=== PATIENT | female | born 1960 | race Caucasian/White ===

== ENCOUNTER → 2017-08-28 | Outpatient (CLI) | payer MEDICARE ==
[~2017-08-28] MED LIST: BUSPAR5 MG PO; FIORICET W/CODE1 CAP PO; K + POTASSIUM20 MEQ PO; LASIX10 MG/M1 PO; LISINOPRIL2.5 MG PO; NEURONTIN100 MG PO; NEURONTIN300 MG PO; NORFLEX100 MG PO; VICO10300 PO; XANAX0.25 MG PO; ZOLOFT20 MG/ML PO
[2017-08-28 10:05] LABS: BASO % 0.4 % (0.0-1.0); EOS # 0.5 10*3/uL (0.0-0.4); EOS % 7.1 % (1.0-4.0); HEMATOCRIT 40.4 % (37.0-47.0); HEMOGLOBIN 13.1 g/dl (12.0-16.0); LYMPH # 3.8 10*3/uL (1.3-4.4); LYMPH % 55.5 % (27.0-41.0); MEAN CELL VOLUME 97.8 fl (81.0-99.0); MEAN CORPUSCULAR HGB 31.7 pg (27.0-31.0); MEAN CORPUSCULAR HGB CONC 32.4 g/dl (33.0-37.0); MEAN PLATELET VOLUME 10.6 fl (9.6-12.3); MONO # 0.5 10*3/uL (0.1-1.0); MONO % 6.8 % (3.0-9.0); NEUT # 2.1 10*3/uL (2.3-7.9); NEUT % 30.1 % (47.0-73.0); PLATELET COUNT AUTOMATED 167 10*3/uL (130-400); RED BLOOD COUNT 4.13 10*6/uL (4.10-5.10); RED CELL DISTRI WIDTH 13.1 % (0-14.5); WHITE BLOOD COUNT 6.9 10*3/uL (4.8-10.8)
[2017-08-28 10:41] LABS: ALBUMIN 3.5 gm/dl (3.1-4.5); ALKALINE PHOSPHATASE 84 U/L (45-117); BUN 13 mg/dl (7-24); CHLORIDE 106 mmol/L (98-107); CHOLESTEROL 153 mg/dL (<200); CREATININE 0.96 mg/dL (0.55-1.02); HDL CHOLESTEROL 47 mg/dl (40-60); LDL CHOLESTEROL 74 mg/dL (9-159); SGOT/AST 14 IU/L (3-35); SGPT/ALT 16 U/L (12-78); SODIUM 141 mmol/L (136-145); TOTAL PROTEIN 7.3 gm/dL (6.4-8.2); TRIGLYCERIDES 159 mg/dl (<150); VLDL CHOLESTEROL 32 mg/dL (6-40)
[2017-08-28 11:24] LABS: VITAMIN D, 25-HYDROXY 16.2 ng/mL (30-100)
== END | disposition home or self-care (01) ==
LOC: LAB 09:46
PROVIDERS: Physician Assistant
DX: Z51.81 Encounter for therapeutic drug level monitoring (principal); E55.9 Vitamin D deficiency, unspecified; Z79.899 Other long term (current) drug therapy

== ENCOUNTER 2017-10-20 22:34 | Emergency (ER) | payer MEDICARE ==
[~2017-10-20] VITALS: Ht 170.1 cm; Wt 170.1 kg
[2017-10-20 22:40] VITALS: BP 133/85
[2017-10-21] MEDS ORDERED: NORCO 5-325 TA1 EACH PO (01:36)
[2017-10-21] MEDS ORDERED: DELTASONE20 M1 PO (01:36)
== END 2017-10-21 02:03 | disposition home or self-care (01) ==
LOC: ED 22:34
DX: M54.16 Radiculopathy, lumbar region (principal); Z98.890 Other specified postprocedural states; Z79.899 Other long term (current) drug therapy

== ENCOUNTER 2018-03-07 12:22 | Emergency (ER) | payer OTHER ==
[~2018-03-07] VITALS: Wt 158.8 kg
[~2018-03-07 12:22] MED LIST changes: +DELTASONE20 M1 PO; +NORCO 5-325 TA1 EACH PO
[2018-03-07 15:45] VITALS: BP 130/56
== END 2018-03-07 16:02 | disposition home or self-care (01) ==
LOC: ED 12:22
DX: S01.01XA Laceration without foreign body of scalp, initial encounter (principal); M54.5 Low back pain; R10.2 Pelvic and perineal pain; Z79.899 Other long term (current) drug therapy; W18.39XA Other fall on same level, initial encounter; Y93.89 Activity, other specified; Y92.009 Unspecified place in unspecified non-institutional (private) residence as the place of occurrence of the external cause; Y99.8 Other external cause status

== ENCOUNTER 2018-03-15 09:39 | Emergency (ER) | payer OTHER ==
[~2018-03-15] VITALS: Ht 170.1 cm; Wt 158.8 kg
[2018-03-15 09:45] VITALS: BP 117/73
== END 2018-03-15 10:16 | disposition home or self-care (01) ==
LOC: ED 09:39
DX: S01.01XD Laceration without foreign body of scalp, subsequent encounter (principal); W19.XXXD Unspecified fall, subsequent encounter

== ENCOUNTER → 2018-09-30 | Outpatient (CLI) | payer OTHER ==
[~2018-09-30] MED LIST changes: +AMARYL4 MG PO; +BENTYL PO; +BUSPAR15 MG PO; +CELEBREX100 MG PO; +DEXILANT60 M1 PO; +DOXEPIN50 MG PO; +IBU800 M2 PO; +LASIX20 MG PO; +LASIX80 MG PO; -LISINOPRIL2.5 MG PO; +NATURE'S BLEND F1 MG PO; -NEURONTIN100 MG PO; +NEURONTIN400 MG PO; +PRINIVIL10 MG PO; +ROBAXIN-750750 MG PO; +Synthroid,Levo25 MCG PO; +TOPAMAX50 MG PO; +VANCO 1.751.75 GM/25 IV; +VICO75300 PO; -XANAX0.25 MG PO; +XANAX2 M1 PO; +ZOCOR40 MG PO; +ZOLOFT100 MG PO; -ZOLOFT20 MG/ML PO
[2018-09-30 12:45] LABS: BASO % 0.3 % (0.0-1.0); EOS # 0.5 10*3/uL (0.0-0.4); EOS % 7.3 % (1.0-4.0); HEMATOCRIT 39.2 % (37.0-47.0); HEMOGLOBIN 12.2 g/dl (12.0-16.0); LYMPH # 2.8 10*3/uL (1.3-4.4); LYMPH % 43.6 % (27.0-41.0); MEAN CELL VOLUME 102.3 fl (81.0-99.0); MEAN CORPUSCULAR HGB 31.9 pg (27.0-31.0); MEAN CORPUSCULAR HGB CONC 31.1 g/dl (33.0-37.0); MEAN PLATELET VOLUME 11.1 fl (9.6-12.3); MONO # 0.5 10*3/uL (0.1-1.0); MONO % 8.5 % (3.0-9.0); NEUT # 2.5 10*3/uL (2.3-7.9); PLATELET COUNT AUTOMATED 171 10*3/uL (130-400); RED BLOOD COUNT 3.83 10*6/uL (4.10-5.10); RED CELL DISTRI WIDTH 13.6 % (0-14.5); WHITE BLOOD COUNT 6.3 10*3/uL (4.8-10.8)
[2018-09-30 12:53] LABS: ALBUMIN 3.3 gm/dl (3.1-4.5); ALKALINE PHOSPHATASE 91 U/L (45-117); BUN 11 mg/dl (7-24); CHLORIDE 107 mmol/L (98-107); CHOLESTEROL 171 mg/dL (<200); CREATININE 0.85 mg/dL (0.55-1.02); HDL CHOLESTEROL 51 mg/dl (40-60); LDL CHOLESTEROL 89 mg/dL (9-159); POTASSIUM 3.9 mmol/L (3.5-5.1); SGOT/AST 12 IU/L (3-35); SGPT/ALT 18 U/L (12-78); SODIUM 143 mmol/L (136-145); TOTAL PROTEIN 7.1 gm/dL (6.4-8.2); TRIGLYCERIDES 156 mg/dl (<150); VLDL CHOLESTEROL 31 mg/dL (6-40)
[2018-09-30 13:03] LABS: VITAMIN D, 25-HYDROXY 32.9 ng/mL (30-100)
[2018-09-30 13:09] LABS: FREE T4 0.96 ng/dl (0.76-1.46)
== END | disposition home or self-care (01) ==
LOC: CT 09-02 13:00 → LAB 10:57 → CT 11:00
PROVIDERS: Internal Medicine
DX: Z13.21 Encounter for screening for nutritional disorder (principal); Z13.220 Encounter for screening for lipoid disorders; Z13.6 Encounter for screening for cardiovascular disorders; D32.0 Benign neoplasm of cerebral meninges; I10 Essential (primary) hypertension; E11.65 Type 2 diabetes mellitus with hyperglycemia; E55.9 Vitamin D deficiency, unspecified; E53.8 Deficiency of other specified B group vitamins; M25.562 Pain in left knee; R51 Headache

== ENCOUNTER 2019-01-21 05:54 | Inpatient (IN) | payer OTHER ==
[~2019-01-21] VITALS: Ht 167.6 cm; Wt 182.4 kg
[2019-01-21] VITALS (14 sets, daily range): BP systolic 89–138; BP diastolic 45–86
--- NOTE | ~2019-01-21 | PR ---
[place], [place] PROGRESS NOTE NAME: TOREY BRIGGS UNIT #: [id number] ROOM: 427 DOCTOR: MARGIE MEDRANOSEPTEMBER BIRTHDATE: [birth year] DOS: 01/22/2019 SUBJECTIVE: The patient is a 58-year-old morbidly obese female who was admitted with sepsis and left thigh abscess and cellulitis. She went for formal I and D yesterday per Dr. Vela. Cultures from that have gram-positive cocci in clusters. She is currently on vancomycin and Ancef. WBCs are improving down to 11. Her temps are improving. She was 103 yesterday. Today, she has not been above 99.3. The patient herself awakens easily, but is a poor historian and keeps falling back to sleep. Nurses state she has had some confusion. No nausea, vomiting or diarrhea. Still having pain in the left thigh, but has improved. Packing was changed per surgery earlier today. Foul odor was noted per nursing. LABORATORY DATA: WBC is 11.2 down from 14, platelets 181. BUN 11, creatinine 0.74. Blood cultures are sterile. OBJECTIVE: VITAL SIGNS: Temperature 99.3, pulse 87, respirations 16, BP 120/72. GENERAL: A 58-year-old morbidly obese female, in no acute distress, nontoxic in appearance. HEENT: Normocephalic, no thrush. NECK: Supple. LUNGS: Clear to auscultation bilaterally. Respirations even and unlabored. HEART: Regular rhythm with murmur noted. ABDOMEN: Soft, obese, nontender. EXTREMITIES: Mild bilateral lower extremity edema. Left thigh with erythema, large dressing anteriorly. SKIN: Otherwise, warm, dry and intact, free of rashes. ASSESSMENT: Left thigh cellulitis and abscess. PLAN: Continue vancomycin and Ancef. Narrow antibiotics once cultures are back. ADDENDUM I agree with the assessment and plan, reviewed the labs and imaging, made the necessary changes in the note. SEPTEMBER MITCHELL HANSON [place], [place] PROGRESS NOTE NAME: TOREY BRIGGS UNIT #: [id number] ROOM: 427 DOCTOR: MARGIE MEDRANO,SEPTEMBER BIRTHDATE: [birth year] Eun Deal MD CM:PNTRANS [id number] SEPTEMBER MARGIE MEDRANO 01/29/19 0115 interface
--- NOTE | ~2019-01-21 | PR ---
[place], [place] PROGRESS NOTE [id number] UNIT #: [id number] ROOM: [facility]- DOCTOR: MARCOS ARGUELLO MD BIRTHDATE: [birth year] DOS: 01/22/2019 SUBJECTIVE: The patient is slightly confused, does not remember the chain of events leading to admission. OBJECTIVE: VITAL SIGNS: Graphic trend shows a pressure of 120/42, pulse of 71, respirations 16, temperature 98.5 with a T-max of 99.9. LUNGS: Diminished breath sounds. Few fine wheezes heard. HEART: Regular. ABDOMEN: Obese. EXTREMITIES: No edema in the lower extremities, large abscess, left thigh, I and D'ed with packing. LABORATORY DATA: Wound culture is growing gram-positive cocci, identification is not available yet. ASSESSMENT AND PLAN: 1. Abscess, left thigh, status post incision and drainage. 2. Sepsis pattern with blood cultures still not completed yet. 3. Type 2 diabetes mellitus, non-insulin dependent. Blood sugars to be checked twice a day. 4. Benign hypertension. Blood pressure is on the low side. Repeat lab this morning shows normal kidney functions. MARCOS ARGUELLO MD CM:PNTRANS [phone] MARCOS ARGUELLO MD 01/22/19 08 interface
--- NOTE | ~2019-01-21 | PR ---
[place], [place] PROGRESS NOTE NAME: [id number] UNIT #: [id number] ROOM: 427 DOCTOR: SELINA GARCIA,MISAEL [place] BIRTHDATE: [birth year] DOS: 01/24/2019 SUBJECTIVE: 1. The patient with left inner thigh abscess, status post drainage and cellulitis with MRSA, being treated with vancomycin, starting to feel better. 2. Morbid obesity. The patient working with Dietary. 3. Adult failure to thrive. The patient waiting for transfer to [place] for continued antibiotic and physical therapy. 4. Type 2 diabetes mellitus. Blood sugars being monitored, treated and reasonably controlled blood sugar was 130. 5. Mild protein calorie malnutrition. The patient is working with Dietary. 6. Generalized anxiety disorder, treated with Zoloft and Xanax. 7. Severe sepsis, resolved. The patient is feeling much better. MISAEL MARKS MD CM:PNTRANS [phone] MISAEL MARKS MD 01/25/19 0035 interface
--- NOTE | ~2019-01-21 | PR ---
[place], [place] PROGRESS NOTE [id number] UNIT #: [id number] ROOM: 427 DOCTOR: MISAEL MARKS MD BIRTHDATE: [birth year] DOS: SUBJECTIVE: The patient is starting to feel better. OBJECTIVE: VITAL SIGNS: Blood pressure 141/49, heart rate 70 beats per minute, breathing 20 times per minute, temperature 99.1 degrees Fahrenheit. GENERAL APPEARANCE: The patient is alert and oriented x 3, in no visible distress. Obesity. HEENT AND NECK: Exam within normal limits. CARDIOVASCULAR SYSTEM: Heart rate is regular in rate and rhythm. S1 and S2 normally audible. LUNGS: Clear to auscultation. ABDOMEN: Soft, nontender. No obvious organomegaly. Bowel sounds are present. EXTREMITIES: Without significant cyanosis or edema. IMPRESSION: 1. The patient with left inner thigh abscess, status post drainage, remains on antibiotic, IV vancomycin, which she needs for 2 more weeks. 2. Morbid obesity. The patient working with Dietary. 3. Adult failure to thrive. The patient working in physical therapy. 4. Type 2 diabetes mellitus. Blood sugars will be monitored and treated. 5. Mild protein calorie malnutrition. The patient working with Dietary. 6. Severe sepsis from MRSA wound infection, clinically improved with vancomycin treatment. MISAEL MARKS MD CM:PNTRANS [phone] MISAEL MARKS MD 01/27/1999 interface
--- NOTE | ~2019-01-21 | PROC NOTE ---
[place], [place] PROCEDURE NOTE [facility]: [id number] UNIT #: [id number] ROOM: [facility] DOCTOR: GREG WOOTEN MD BIRTHDATE: [birth year] DOS: 01/21/2019 PREOPERATIVE DIAGNOSIS: Left thigh abscess. POSTOPERATIVE DIAGNOSIS: Left thigh abscess. PROCEDURE: Incision and drainage of left thigh abscess. SURGEON: Greg Wooten M.D. CLIENT COORDINATOR: FILI. ANESTHESIA: MAC with local (5 mL of 1% plain lidocaine). INDICATIONS: This is a 58-year-old lady admitted with left thigh abscess who is here for the above-mentioned procedure. The procedure and its complications were explained to the patient and her daughter in detail. Complications that were discussed included but were not limited to bleeding, infection and damage to lying vital structures. She agreed to proceed. DESCRIPTION OF PROCEDURE: After identifying the patient, the patient was brought to the operating suite and laid in the supine position. After IV sedation was administered, a timeout procedure was called. The parts were then painted and draped in the usual sterile fashion. An incision was made after local anesthesia was infiltrated in the line of the greatest fluctuation point on the abscess. The abscess cavity was entered and pus was drained. The specimen was sent for culture and sensitivity. Saline was used for irrigation and then a Kerlix pad was soaked with saline as a packing material. Dressing was placed. The patient tolerated the procedure well and was brought back to the recovery room in stable fashion. There were no complications. Dr. Greg Wooten, the attending surgeon, was present throughout the operating case. Greg Wooten MD CM:PROCNOTE:PROCEDURE NOTE [id number] GREG WOOTEN MD
--- NOTE | ~2019-01-21 | PR ---
[place], [place] PROGRESS NOTE NAME: TOREY BRIGGS UNIT #: [id number] ROOM: 427 DOCTOR: MARGIE MEDRANO BIRTHDATE: [birth year] DOS: 01/23/2019 SUBJECTIVE: The patient is a 58-year-old morbidly obese female being followed for left thigh cellulitis and abscess. Cultures have grown MRSA. She continues to have some intermittent fevers, had a temperature during the night of 101.4. She remains on IV vancomycin. Her Ancef was stopped earlier today. She is alert, responsive, looks better up in a chair; however, she answers some questions inappropriately. Denies any nausea, vomiting or diarrhea. No rash or itch. No cough or shortness of breath. Does still have pain in her left thigh. LABORATORY DATA: WBCs 9.2, platelets 183, BUN 12, creatinine 0.58. Abscess cultures grew MRSA. Blood cultures remained sterile. PHYSICAL EXAMINATION: VITAL SIGNS: Temperature 99.6, pulse 73, respirations 16, BP 138/57. GENERAL: A 58-year-old morbidly obese female, in no acute distress. HEENT: Normocephalic, no thrush. NECK: Supple. LUNGS: Clear to auscultation bilaterally. Respirations even and unlabored. HEART: Regular rhythm. No murmur appreciated. ABDOMEN: Soft, obese, nontender. EXTREMITIES: Mild edema bilateral lower extremities, left thigh entire dressing was not removed, but the wound was left packed, but she still has surrounding erythema and induration as well as does appear to have a little bit of purulent still packing. Again packing was not removed. SKIN: Otherwise, warm, dry, free of rashes. ASSESSMENT: Left thigh cellulitis and abscess with methicillin-resistant Staphylococcus aureus. PLAN: Continue IV vancomycin. Agree with stopping the Ancef. SEPTEMBER MITCHELL HANSON [place], [place] PROGRESS NOTE NAME: TOREY BRIGGS UNIT #: [id number] ROOM: 427 DOCTOR: MARGIE MEDRANOSEPTEMBER BIRTHDATE: [birth year] Eun Deal MD CM:DHIRAJ [phone] [id number] MARGIE MEDRANO 01/23/191628 interface
--- NOTE | ~2019-01-21 | WRIGHTHP ---
[place], [place] PATIENT HISTORY AND PHYSICAL EXAM NAME: TOREY BRIGGS [facility] #: [id number] UNIT #: [id number] ROOM: [facility] DOCTOR: MISAEL MARKS MD BIRTHDATE: [birth year] DOS: 01/21/2019 HISTORY OF PRESENT ILLNESS: The patient is a 58-year-old female with a past medical history of: 1. Morbid obesity. 2. Diabetes mellitus. 3. History of alcohol abuse. 4. Major depression, recurrent, moderate. 5. Severe generalized anxiety disorder. 6. Morbid obesity. 7. Protein-calorie malnutrition. The patient presented to [facility] with shaking chills and infection, swelling and drainage from the left upper thigh for about 2 weeks. The patient is having severe rigors and shaking chills. White cell count was elevated to 14,000 and fever up to 101 degrees Fahrenheit now. OBJECTIVE: VITAL SIGNS: Blood pressure 121/80, heart rate 85 beats per minute, breathing 16-20 times per minute. GENERAL APPEARANCE: The patient is alert and oriented x 3, in no visible distress. Morbid obesity. HEENT AND NECK: Extraocular movements are intact. Sclerae are anicteric. Oral mucosa is moist and clean. No obvious facial weakness. Neck is supple without any lymphadenopathy. No thyromegaly. No JVD. No carotid arterial bruits. LUNGS: Clear to auscultation. No wheezing. No rhonchi. CARDIOVASCULAR SYSTEM: Heart rate is regular in rate and rhythm. S1 and S2 normally audible. No significant murmur or any other abnormal cardiac sounds. ABDOMEN: Soft, nontender. No obvious organomegaly. Bowel sounds are present. No obvious herniation. EXTREMITIES: Without significant cyanosis or edema. Warm to touch. The patient has a large area measuring about 8 inches x 6 inches on the left upper thigh, which is red, swollen, and draining pus with an open wound. CENTRAL NERVOUS SYSTEM: Alert and oriented x 3. Cranial nerves II-XII are intact. Speech is normal. The patient is able to move all extremities. Normal muscle strength. Deep tendon reflexes are equal on both sides. Plantars were downgoing. DIAGNOSTIC DATA: X-ray of the left hip and thigh showed extensive DJD of the lumbar spine. CT of the head without acute abnormality. White cell count elevated at 14,300, hemoglobin 11.3, albumin level low at 2.9. IMPRESSION: 1. The patient with starting of severe sepsis with leukocytosis, severe shaking chills, fever up to 101 degrees Fahrenheit. Blood cultures performed. The patient was started on IV Zosyn and vancomycin. Infectious Disease gift consultant Dr. Deal has been consulted. 2. Large left upper thigh infection and cellulitis and abscess, which is draining. Dr. Vela to take her for incision and drainage today. 3. Type 2 diabetes mellitus. Blood sugars to be monitored and treated. Blood [place], [place] PATIENT HISTORY AND PHYSICAL EXAM NAME: TOREY BRIGGS UNIT #: [id number] ROOM: [facility] DOCTOR: SELINA GARCIA,MISAEL [place] BIRTHDATE: [birth year] sugar elevated to 147. 4. Morbid obesity. The patient worked with Dietary. 5. Mild protein-calorie malnutrition to be followed by Dietary. 6. Major depression, recurrent, moderate to be treated and controlled. 7. Severe generalized anxiety disorder, treated with buspirone. The patient already on Zoloft. Xanax to be given as needed. MISAEL MARKS MD CM:HISPHYS:PATIENT HISTORY AND PHYSICAL EXAMINATION [id number] MISAEL MARKS MD 01/21/19 1113 interface
--- NOTE | ~2019-01-21 | PR ---
[place], [place] PROGRESS NOTE NAME: [facility] [id number] UNIT #: [id number] ROOM: 427 DOCTOR: GRICELDA GARCIA,MADAI BIRTHDATE: [birth year] DOS: 01/23/2019 ADDENDUM This is an addendum to the progress note done by the nurse practitioner, Rachell Valdez. I agree with the assessment and plan. I reviewed the labs and imaging, made the necessary changes in the note. Madai Madison MD CM:PNTRANS [phone] MADAI MADISON MD 01/29/19 0116 interface
--- NOTE | ~2019-01-21 | EKG ---
[place], [place] ELECTROCARDIOGRAM REPORT NAME: TOREY BRIGGS UNIT #: [id number] ROOM: [facility] DOCTOR: ORESTES DRAFT REPORT BIRTHDATE: [birth year] [facility] Test Date: 2019-01-21 Test Time: 06:36:41 Pat Name: TOREY BRIGGS Department: Room: [facility] Gender: F Web Project Manager: Lillie Tello : 1960 Requested By: LETITIA TAYLOR Order Number: [id number] Reading MD: Marie Abreu MD Measurements Intervals [place] Rate: 83 P: 58 ID: 162 QRS: 67 QRSD: 98 T: 49 QT: 352 QTc: 414 Interpretive Statements Sinus rhythm Low voltage, precordial leads No previous ECG available for comparison Electronically Signed On 01-21-2019 11:22:49 PDT by Marie Abreu MD CM:EKGRPT:ELECTROCARDIOGRAM REPORT [id number] LETITIA MCCARTY DRAFT REPORT LETITIA TAYLOR DO
--- NOTE | ~2019-01-21 | DS ---
[place], [place] DISCHARGE SUMMARY NAME: TOREY BRIGGS [facility] #: [id number] UNIT #: [id number] ROOM: 427 DOCTOR: MISAEL MARKS MD BIRTHDATE: [birth year] DOS: 01/25/2019 DISCHARGE DIAGNOSES: 1. The patient with left inner thigh abscess, status post drainage, MRSA positive wound cultures to be treated with IV vancomycin. 2. Morbid obesity. 3. Adult failure to thrive. 4. Type 2 diabetes mellitus. 5. Mild protein-calorie malnutrition. 6. Generalized anxiety disorder. 7. Severe sepsis from MRSA wound infection, resolved with treatment with vancomycin. 8. Major depression, recurrent, moderate. 9. History of alcohol abuse. 10. Type 2 diabetes mellitus. HOSPITAL COURSE: The patient presented with shaking chills and left upper inner thigh infection for about 2 weeks of symptoms, severe, rigors, shaking chills. She appeared septic with a white cell count elevated to 14,000. She was febrile. The patient was admitted and taken for incision and drainage by Dr. Vela and treated with IV vancomycin. Wound cultures grew MRSA. The patient was seen by ID and now she is being discharged after being cleared from surgery to [facility] for continued daily wound packing and IV vancomycin. The patient to be followed by Infectious Disease specialist and wound care. She has an appointment with [facility] on 01/27/2019. Morbid obesity. The patient worked with Dietary. Mild protein calorie malnutrition. The patient worked with Dietary. Type 2 diabetes mellitus. Blood sugars were monitored and treated, reasonably controlled. Severe generalized anxiety disorder. He is being treated and controlled. The patient on buspirone and Zoloft. Major depression, recurrent, moderate, treated and controlled and followed. Wound cultures as mentioned above growing MRSA. Leukocytosis has resolved. Normal CBC before discharge. LABORATORY DATA: Normal serum electrolytes. Blood sugar was 130 before discharge. Blood cultures were negative. DISCHARGE MANAGEMENT: Protonix 40 mg b.i.d., Lovenox 40 mg subcutaneous daily for 10 days, Zoloft 25 mg daily, potassium chloride 20 mEq daily, lisinopril 2.5 mg daily, gabapentin 100 mg daily, furosemide 80 mg a day, repeat basic metabolic profile in one week, IV vancomycin 1750 mg every 12 hours for 2 weeks. ID to follow Dr. Deal. Buspirone 5 mg 3 times a day. Wound packing daily. Followup with Wound Center in ____ Wound Care [facility] and ID. [place], [place] DISCHARGE SUMMARY NAME: TOREY BRIGGS UNIT #: [id number] ROOM: 427 DOCTOR: MISAEL MARKS MD BIRTHDATE: [birth year] MISAEL MARKS MD CM:DISCHARG [id number] MISAEL MARKS MD 01/25/19 1919 interface
--- NOTE | ~2019-01-21 | PR ---
[place], [place] PROGRESS NOTE [id number] #: [id number] ROOM: 427 DOCTOR: MARCOS ARGUELLO MD BIRTHDATE: [birth year] DOS: SUBJECTIVE: The patient is about the same, does not have any new complaints. OBJECTIVE: VITAL SIGNS: Graphic trend shows blood pressure of 137/61, pulse of 80, respirations of 15, temperature 101.3 at 4:00. LUNGS: Diminished breath sounds. HEART: Regular. ABDOMEN: Obese. EXTREMITIES: Without any edema. Left thigh wound is pretty deep with some purulence. LABORATORY DATA: WBC count is 9.2, hemoglobin 10.3, hematocrit 33.9, platelets 183. BMP: Glucose 137, BUN 12, creatinine 0.58, sodium 143, potassium 4.1, chloride 109. ASSESSMENT AND PLAN: 1. Abscess, left thigh, status post incision and drainage. 2. Methicillin-resistant Staphylococcus aureus of the wound, on IV vancomycin. Discontinue cefazolin. 3. Adult failure to thrive. Discussed with the patient. She agreed to go to [place]. Social Service has been consulted. 4. Type 2 diabetes mellitus. Blood sugar controlled. MARCOS ARGUELLO MD CM:DHIRAJ [phone] MARCOS ARGUELLO MD 01/23/19 1024 interface
[~2019-01-21 05:54] MED LIST changes: -AMARYL4 MG PO; -BENTYL PO; -BUSPAR15 MG PO; -CELEBREX100 MG PO; -DEXILANT60 M1 PO; -DOXEPIN50 MG PO; -IBU800 M2 PO; -LASIX20 MG PO; -LASIX80 MG PO; -NATURE'S BLEND F1 MG PO; -ROBAXIN-750750 MG PO; -Synthroid,Levo25 MCG PO; -TOPAMAX50 MG PO; -VANCO 1.751.75 GM/25 IV; -VICO75300 PO; -ZOCOR40 MG PO
[2019-01-21 06:48] LABS: HEMATOCRIT 35.9 % (37.0-47.0); HEMOGLOBIN 11.3 g/dl (12.0-16.0); MEAN CELL VOLUME 103.2 fl (81.0-99.0); MEAN CORPUSCULAR HGB 32.5 pg (27.0-31.0); MEAN CORPUSCULAR HGB CONC 31.5 g/dl (33.0-37.0); MEAN PLATELET VOLUME 11.1 fl (9.6-12.3); PLATELET COUNT AUTOMATED 176 10*3/uL (130-400); RED BLOOD COUNT 3.48 10*6/uL (4.10-5.10); RED CELL DISTRI WIDTH 13.3 % (0-14.5); WHITE BLOOD COUNT 14.3 10*3/uL (4.8-10.8)
[2019-01-21 06:59] LABS: ACT PARTIAL THROMBO TIME 28.5 SECONDS (20.0-32.1)
[2019-01-21 07:05] LABS: ALBUMIN 2.9 gm/dl (3.1-4.5); ALKALINE PHOSPHATASE 155 U/L (45-117); BUN 15 mg/dl (7-24); CHLORIDE 107 mmol/L (98-107); CREATININE 0.95 mg/dL (0.55-1.02); POTASSIUM 3.7 mmol/L (3.5-5.1); SGOT/AST 42 IU/L (3-35); SGPT/ALT 22 U/L (12-78); SODIUM 137 mmol/L (136-145); TOTAL PROTEIN 7.2 gm/dL (6.4-8.2)
[2019-01-21 07:07] LABS: TROPONIN I < 0.015 ng/ml (<0.045)
[2019-01-21 07:13] LABS: PLATELET SUFFICIENCY NORMAL (NORMAL); TOTAL CELLS COUNTED 100 #CELLS
[2019-01-21] MEDS ORDERED: LASIX20 MG PO (10:31)
[2019-01-21] MEDS ORDERED: Synthroid,Levo25 MCG PO (11:46)
[2019-01-21] MEDS ORDERED: BENTYL PO (11:51)
[2019-01-21] MEDS ORDERED: IBU800 M2 PO (13:17)
[2019-01-21] MEDS ORDERED: ROBAXIN-750750 MG PO (13:18)
[2019-01-21] MEDS ORDERED: DEXILANT60 M1 PO (13:18)
[2019-01-21] MEDS ORDERED: AMARYL4 MG PO (13:20)
[2019-01-21] MEDS ORDERED: NATURE'S BLEND F1 MG PO (13:21)
[2019-01-21] MEDS ORDERED: BUSPAR15 MG PO (13:21)
[2019-01-21] MEDS ORDERED: TOPAMAX50 MG PO (13:22)
[2019-01-21] MEDS ORDERED: ZOCOR40 MG PO (13:22)
[2019-01-21] MEDS ORDERED: LASIX80 MG PO (13:22)
[2019-01-21] MEDS ORDERED: DOXEPIN50 MG PO (13:23)
[2019-01-21] MEDS ORDERED: CELEBREX100 MG PO (13:24)
[2019-01-21] MEDS ORDERED: VICO75300 PO (13:33)
[2019-01-22] VITALS: BP 124/72
[2019-01-22 04:00] VITALS: BP 120/42
[2019-01-22 06:35] LABS: BASO % 0.4 % (0.0-1.0); EOS % 0.1 % (1.0-4.0); HEMATOCRIT 36.3 % (37.0-47.0); LYMPH # 1.9 10*3/uL (1.3-4.4); LYMPH % 16.8 % (27.0-41.0); MEAN CELL VOLUME 106.1 fl (81.0-99.0); MEAN CORPUSCULAR HGB 32.2 pg (27.0-31.0); MEAN CORPUSCULAR HGB CONC 30.3 g/dl (33.0-37.0); MEAN PLATELET VOLUME 11.5 fl (9.6-12.3); MONO # 1.3 10*3/uL (0.1-1.0); MONO % 11.5 % (3.0-9.0); NEUT # 7.8 10*3/uL (2.3-7.9); PLATELET COUNT AUTOMATED 181 10*3/uL (130-400); RED BLOOD COUNT 3.42 10*6/uL (4.10-5.10); RED CELL DISTRI WIDTH 13.2 % (0-14.5); WHITE BLOOD COUNT 11.2 10*3/uL (4.8-10.8)
[2019-01-22 06:40] LABS: BUN 11 mg/dl (7-24); CHLORIDE 109 mmol/L (98-107); CREATININE 0.74 mg/dL (0.55-1.02); POTASSIUM 3.9 mmol/L (3.5-5.1); SODIUM 142 mmol/L (136-145)
[2019-01-22 08:00] VITALS: BP 122/71
[2019-01-22 12:00] VITALS: BP 120/72
[2019-01-22 12:05] LABS: ACID FAST SPEC PROCESSING Tissue Grinding (.)
[2019-01-22 16:00] VITALS: BP 126/66
[2019-01-22 20:00] VITALS: BP 147/77
[2019-01-23] VITALS: BP 159/72
[2019-01-23 04:00] VITALS: BP 137/61
[2019-01-23 06:05] LABS: HEMATOCRIT 33.9 % (37.0-47.0); HEMOGLOBIN 10.3 g/dl (12.0-16.0); MEAN CELL VOLUME 105.3 fl (81.0-99.0); MEAN CORPUSCULAR HGB CONC 30.4 g/dl (33.0-37.0); MEAN PLATELET VOLUME 11.1 fl (9.6-12.3); PLATELET COUNT AUTOMATED 183 10*3/uL (130-400); RED BLOOD COUNT 3.22 10*6/uL (4.10-5.10); RED CELL DISTRI WIDTH 13.1 % (0-14.5); WHITE BLOOD COUNT 9.2 10*3/uL (4.8-10.8)
[2019-01-23 06:08] LABS: BUN 12 mg/dl (7-24); CHLORIDE 109 mmol/L (98-107); CREATININE 0.58 mg/dL (0.55-1.02); POTASSIUM 4.1 mmol/L (3.5-5.1); SODIUM 143 mmol/L (136-145)
[2019-01-23 06:58] LABS: PLATELET SUFFICIENCY NORMAL (NORMAL); POLYCHROMASIA SLIGHT; TOTAL CELLS COUNTED 100 #CELLS
[2019-01-23 08:00] VITALS: BP 138/57
[2019-01-23 09:04] VITALS: BP 140/70
[2019-01-23 16:00] VITALS: BP 116/75
[2019-01-23 20:00] VITALS: BP 136/61
[2019-01-24] VITALS: BP 159/84
[2019-01-24 07:07] LABS: BUN 13 mg/dl (7-24); CHLORIDE 105 mmol/L (98-107); CREATININE 0.62 mg/dL (0.55-1.02); POTASSIUM 4.1 mmol/L (3.5-5.1); SODIUM 140 mmol/L (136-145)
[2019-01-24 07:08] LABS: HEMATOCRIT 35.8 % (37.0-47.0); HEMOGLOBIN 11.1 g/dl (12.0-16.0); MEAN CELL VOLUME 104.4 fl (81.0-99.0); MEAN CORPUSCULAR HGB 32.4 pg (27.0-31.0); PLATELET COUNT AUTOMATED 207 10*3/uL (130-400); RED BLOOD COUNT 3.43 10*6/uL (4.10-5.10); WHITE BLOOD COUNT 8.2 10*3/uL (4.8-10.8)
[2019-01-24 07:59] LABS: PLATELET SUFFICIENCY NORMAL (NORMAL); POLYCHROMASIA SLIGHT; TOTAL CELLS COUNTED 100 #CELLS
[2019-01-24 12:00] VITALS: BP 143/69
[2019-01-24 16:00] VITALS: BP 138/56
[2019-01-24 20:00] VITALS: BP 124/63
[2019-01-25] VITALS: BP 138/62
[2019-01-25 06:09] LABS: HEMOGLOBIN 11.5 g/dl (12.0-16.0); MEAN CELL VOLUME 101.7 fl (81.0-99.0); MEAN CORPUSCULAR HGB 32.5 pg (27.0-31.0); MEAN CORPUSCULAR HGB CONC 31.9 g/dl (33.0-37.0); MEAN PLATELET VOLUME 11.3 fl (9.6-12.3); PLATELET COUNT AUTOMATED 176 10*3/uL (130-400); RED BLOOD COUNT 3.54 10*6/uL (4.10-5.10); RED CELL DISTRI WIDTH 13.1 % (0-14.5); WHITE BLOOD COUNT 7.4 10*3/uL (4.8-10.8)
[2019-01-25 06:21] LABS: BUN 13 mg/dl (7-24)
[2019-01-25 07:23] LABS: PLATELET SUFFICIENCY NORMAL (NORMAL); POLYCHROMASIA SLIGHT; TOTAL CELLS COUNTED 100 #CELLS
[2019-01-25 08:00] VITALS: BP 141/65
[2019-01-25 12:00] VITALS: BP 135/87
[2019-01-25] MEDS ORDERED: VANCO 1.751.75 GM/25 IV (15:14)
[2019-01-25 16:00] VITALS: BP 138/50
[2019-01-25 20:00] VITALS: BP 136/51
[2019-01-26] VITALS: BP 146/67
[2019-01-26 12:00] VITALS: BP 142/74; BP 142/84
[2019-01-26 16:00] VITALS: BP 141/49
== END 2019-01-26 19:15 | disposition other institution (70) | DRG 872 ==
LOC: ED 05:54 → EDHOLD 09:01 → 4E 09:01 → ICCU 09:01 → 4E 09:16 → ICCU 10:43 → 4E 01-23 09:58
PROVIDERS: Student in an Organized Health Care Education/Training Program; Surgery; ADMIT Internal Medicine
PROC: 0Y9D0ZZ Drainage of Left Upper Leg, Open Approach (ICD-10-PCS; principal; 2019-01-21)
PROC: B548ZZA Ultrasonography of Superior Vena Cava, Guidance (ICD-10-PCS; 2019-01-26)
PROC: 02HV33Z Insertion of Infusion Device into Superior Vena Cava, Percutaneous Approach (ICD-10-PCS; 2019-01-26)
DX: A41.02 Sepsis due to Methicillin resistant Staphylococcus aureus (principal); E44.1 Mild protein-calorie malnutrition; F33.1 Major depressive disorder, recurrent, moderate; L03.116 Cellulitis of left lower limb; L02.416 Cutaneous abscess of left lower limb; Z68.44 Body mass index [BMI] 60.0-69.9, adult; R65.20 Severe sepsis without septic shock; B95.62 Methicillin resistant Staphylococcus aureus infection as the cause of diseases classified elsewhere; R62.7 Adult failure to thrive; E66.01 Morbid (severe) obesity due to excess calories; E11.9 Type 2 diabetes mellitus without complications; F41.1 Generalized anxiety disorder; B96.89 Other specified bacterial agents as the cause of diseases classified elsewhere; I10 Essential (primary) hypertension; G43.909 Migraine, unspecified, not intractable, without status migrainosus; Z22.322 Carrier or suspected carrier of Methicillin resistant Staphylococcus aureus; Z79.899 Other long term (current) drug therapy

== ENCOUNTER 2019-04-20 12:32 | Inpatient (IN) | payer OTHER ==
[~2019-04-20] VITALS: Ht 170.1 cm; Wt 179.8 kg
--- NOTE | ~2019-04-20 | PR ---
[place], [place] PROGRESS NOTE NAME: [id number] UNIT #: [id number] ROOM: 517 DOCTOR: MARCOS ARGUELLO MD BIRTHDATE: [birth year] DOS: 04/23/2019 SUBJECTIVE: The patient is doing fine without any new complaints. She is sitting up in a chair, trying to watch her diet. OBJECTIVE: VITAL SIGNS: Pressure is 115/58, pulse is 75, respirations 20, temperature 98.3. LUNGS: Clear. HEART: Regular. ABDOMEN: Obese. Abdominal wounds noted. Wound culture is growing MRSA. No leg edema. No evidence of DVT. ASSESSMENT AND PLAN: 1. Abscess of the right abdominal wall with a small wound of the left thigh, which has been healing slowly. Advised nursing staff wound care. 2. Adult failure to thrive. 3. Methicillin-resistant Staphylococcus aureus of the wound. PICC line placement, awaiting approval from insurance to go to [place]. MARCOS ARGUELLO MD CM:PNTRANS [phone] MARCOS ARGUELLO MD 05/09/19 0847 interface
--- NOTE | ~2019-04-20 | PR ---
[place], [place] PROGRESS NOTE NAME: [id number] UNIT #: [id number] ROOM: 517 DOCTOR: MARCOS ARGEULLO MD BIRTHDATE: [birth year] DOS: 04/22/2019 SUBJECTIVE: The patient is doing well, does not have any new complaints. Appreciate Dr. Vela's input. OBJECTIVE: VITAL SIGNS: Graphic trend shows a pressure 126/60, pulse of 74, respirations 16, temperature 98.3. LUNGS: Clear. HEART: Regular. ABDOMEN: Obese with abscess drained. Dressings intact. EXTREMITIES: Without any edema. ASSESSMENT AND PLAN: 1. Abscess, abdominal wall with Streptococcus aureus in the cultures. 2. Adult failure to thrive, for placement to [place]. The patient to be discharged today. 3. Type 2 diabetes mellitus, insulin-dependent. Blood sugars are controlled. MARCOS ARGUELLO MD CM:PNTRANS 36 MARCOS ARGUELLO MD 04/22/191936 interface
--- NOTE | ~2019-04-20 | PROC NOTE ---
[place], [place] PROCEDURE NOTE NAME: [id number] UNIT #: [id number] ROOM: [facility] DOCTOR: GREG WOOTEN MD BIRTHDATE: [birth year] DOS: 04/21/2019 PREOPERATIVE DIAGNOSIS: Left lower quadrant anterior abdominal wall abscess. POSTOPERATIVE DIAGNOSIS: Left lower quadrant anterior abdominal wall abscess. PROCEDURE: Incision and drainage of left lower quadrant anterior abdominal wall abscess. SURGEON: Greg Wooten MD CLIENT ENGAGEMENT MANAGER: FILI. ANESTHESIA: MAC with local. INDICATIONS: This is a 59-year-old lady here for an abscess of the left lower quadrant anterior abdominal wall. It was decided to take the patient to the operating room for an incision and drainage. The procedure and its complications were explained to the patient in detail and she agreed to proceed. DESCRIPTION OF PROCEDURE: After identifying the patient, the patient was brought to the operating suite and placed in the supine position. After IV sedation was administered by the anesthesia team, a timeout procedure was called and the parts were painted and draped in the usual sterile fashion. Local anesthesia was infiltrated in the line of the incision. The incision was made and deepened in layers until the abscess cavity was entered. A specimen of pus was sent for culture and sensitivity. Thereafter, superficial necrotic skin was debrided with the help of a knife and the abscess cavity as well as the open area was packed with the help of half inch iodoform and a dressing was placed. The patient tolerated the procedure well and was brought back to the recovery room in stable fashion. There were no complications. Dr. Greg Wooten, the attending surgeon, was present throughout the operating case. Greg Wooten MD CM:PROCNOTE:PROCEDURE NOTE [id number] GREG WOOTEN MD
--- NOTE | ~2019-04-20 | DS ---
[place], [place] DISCHARGE SUMMARY NAME: TOREY BRIGGS [facility] #: [id number] UNIT #: [id number] ROOM: 517 DOCTOR: MARCOS ARGUELLO MD BIRTHDATE: [birth year] DOS: 04/22/2019 DIAGNOSES: 1. Abscess of the anterior abdominal wall, status post incision and drainage. 2. Staphylococcus aureus in the wound. 3. Type 2 diabetes mellitus, insulin-dependent. 4. Morbid obesity with a BMI of more than 50. 5. Benign hypertension. 6. Chronic low back pain with spinal stenosis. 7. Generalized anxiety disorder. 8. Adult failure to thrive. 9. History of abscess, left thigh, which was treated earlier this year. 10. Major depression, recurrent, moderate. MEDICATIONS ON DISCHARGE: Lisinopril 10 mg daily, sertraline 100 twice a day, gabapentin 400 three times a day, levothyroxine 25 mcg daily, Dexilant 60 daily, glimepiride 4 mg daily, folic acid 1 mg daily, BuSpar 15 every 6 hours, Topamax 50 twice a day, Lasix 80 daily, simvastatin 40 daily, Celebrex 200 daily, dicyclomine 20 daily, doxepin 50 at bedtime, potassium 20 daily, Xanax 0.25 three times a day as needed, [place] 7.5 three times a day as needed. Vancomycin 2 grams IV q.18. HOSPITAL COURSE: The patient is 59 years old who presented to the office with large area of redness in the abdominal wall with quite a lot of drainage. The patient was diagnosed with an abscess of the abdominal wall, was sent to the hospital for admission. Routine labs were ordered. ESR and CRP were all fairly within normal limits. The patient was placed on IV vancomycin, IV meropenem. Dr. Vela was consulted. Ultrasound of the abdomen was performed, which showed an abscess. The patient was taken for incision and drainage. Since then, the patient has remained stable. The wound cultures grew MRSA for which she is on IV vancomycin. The patient is overall stable and is not having any new complaints. The plan is to discharge her to SNF today. Social Service has been consulted. She has agreed to go to [place] for wound care as well as IV antibiotics. DISCHARGE INSTRUCTIONS: Please do basic metabolic panel every third day as well as a vancomycin trough and readjust dose. ADA diet, 1800, blood sugars to be checked twice daily. [place], [place] DISCHARGE SUMMARY NAME: TOREY BRIGGS UNIT #: [id number] ROOM: 517 DOCTOR: MARCOS ARGUELLO MD BIRTHDATE: [birth year] MARCOS ARGUELLO MD CM:TRACEY [id number] [phone] MARCOS ARGUELLO MD 04/22/19 1612 interface
--- NOTE | ~2019-04-20 | PR ---
[place], [place] PROGRESS NOTE NAME: TOREY BRIGGS [facility] #: [id number] UNIT #: [id number] ROOM: 517 DOCTOR: MARCOS ARGUELLO MD BIRTHDATE: [birth year] DOS: 04/24/2019 SUBJECTIVE: The patient is resting, is still waiting for a bed at [facility]. OBJECTIVE: VITAL SIGNS: Pressure is 122/53, pulse of 86, respirations 18, temperature 98.5. LUNGS: Clear. HEART: Regular. ABDOMEN: Obese. EXTREMITIES: Large wound on the abdominal wall. It is still pretty red and has some debris with no evidence of any surrounding cellulitis. LABORATORY DATA: White cell count is 5.9, hemoglobin 11.4. Glucose is 102, BUN 11, creatinine 0.7, sodium 141, potassium 3.3. Chest x-ray was unremarkable. ASSESSMENT AND PLAN: 1. Abdominal wall abscess, the patient underwent incision and drainage, now left with a large wound. 2. MRSA of the wound, on IV vancomycin. 3. Type 2 diabetes mellitus, insulin-dependent, much better controlled. 4. Morbid obesity with a BMI of more than 50. The patient is trying to watch her diet and following dietary recommendations. MARCOS ARGUELLO MD CM:DHIRAJ [id number] MARCOS ARGUELLO MD 04/24/19 1419 interface
--- NOTE | ~2019-04-20 | PR ---
[place], [place] PROGRESS NOTE [id number] UNIT #: [id number] ROOM: 517 DOCTOR: MARCOS ARGUELLO MD BIRTHDATE: [birth year] DOS: 04/25/2019 SUBJECTIVE: The patient is waiting for placement. OBJECTIVE: VITAL SIGNS: Blood pressure is 111/45, pulse of 80, respirations 18, temperature 98.4. LUNGS: Clear. HEART: Regular. ABDOMEN: Obese, soft. EXTREMITIES: Without any edema. ASSESSMENT AND PLAN: 1. Methicillin-resistant Staphylococcus aureus of the wound, on IV vancomycin. 2. Adult failure to thrive, awaiting placement to [place] for continued IV antibiotics. 3. Abscess of the abdominal wall, status post incision and drainage, now with an open wound, which is healing slowly, ever so slowly. Wet-to-dry dressings have been ordered. The patient is stable. The plan is to discharge to a intermediate. 4. Hypokalemia. Supplementation was given. MARCOS ARGUELLO MD CM:PNTRANS 5 MARCOS ARGUELLO MD 04/25/19 5500 interface
--- NOTE | ~2019-04-20 | WRIGHTHP ---
[place], [place] PATIENT HISTORY AND PHYSICAL EXAM NAME: TOREY BRIGGS [facility] #: [id number] UNIT #: [id number] ROOM: 517 DOCTOR: MARCOS ARGUELLO MD BIRTHDATE: [birth year] DOS: HISTORY OF PRESENT ILLNESS: The patient is 59 years old. The patient is very well known to us. She comes into the office with redness, swelling, and drainage from the abdominal wall. She has had it for about 2 weeks now. She has been taking care of it at home. She came into the office and she had active evidence of abscess with fluctuation and drainage of the abdominal wall, so we decided to admit her. The patient this morning is continuing to have drainage, was already seen by Dr. Vela, is going for I and D. She denies having any chest pains, palpitations, shortness of breath. Does not have any fever or chills. PAST MEDICAL HISTORY: Significant for: 1. Last hospitalization in 01/2019 with abscess of the thigh. 2. Morbid obesity with a BMI of more than 50. 3. Adult failure to thrive. 4. Type 2 diabetes mellitus, insulin-dependent. 5. Generalized anxiety disorder. 6. Chronic pain. 7. History of sepsis from methicillin-resistant Staphylococcus aureus. 8. Major depression, recurrent, moderate. MEDICATIONS: She is on currently are BuSpar 15 q. 6, Celebrex 200 daily, Dexilant 60 daily, dicyclomine 20 daily, doxepin 50 at bedtime, folic acid 1 mg daily, Lasix 80 daily, gabapentin 400 t.i.d., glimepiride 4 daily, [place] 7.5 t.i.d., levothyroxine 25 mcg daily, lisinopril 10 daily, potassium 20 daily, sertraline 100 b.i.d., Zocor 40 at bedtime, Topamax 50 b.i.d. SOCIAL HISTORY: Nonsmoker, does not use any alcohol. PHYSICAL EXAMINATION: GENERAL: She is awake and alert and oriented. VITAL SIGNS: Pressure is 135/72, pulse of 179, respirations 20, temperature 100.6. LUNGS: Diminished breath sounds. No wheezes, rales or rhonchi heard. HEART: Regular. ABDOMEN: Obese, soft with a large area of redness in the left side of the abdomen with fluctuation and drainage, small poorly healing wound of the left thigh, which have dressings on. EXTREMITIES: Legs without any swelling. LABORATORY DATA: ESR 37. WBC count is 6.9, hemoglobin 11.7, hematocrit 37.3. BMP: Glucose 81, BUN 11, creatinine 0.85, sodium 139, potassium 3.7, chloride 110, bicarbonate 26. C-reactive protein 2.7. Ultrasound of the abdomen, a complex cystic collection, possibly from an abscess. Wound culture grew heavy gram-positive cocci. ASSESSMENT AND PLAN: 1. The patient who presents with an abscess of the abdominal wall. Surgical consultation obtained. The patient is placed on IV meropenem and IV vancomycin. 2. Type 2 diabetes mellitus, insulin-dependent. Blood sugars to be checked. [place], [place] PATIENT HISTORY AND PHYSICAL EXAM NAME: [id number] UN[facility] #: [id number] ROOM: [facility] DOCTOR: MARCOS ARGUELLO MD BIRTHDATE: [birth year] 3. Benign hypertension, controlled. 4. Generalized anxiety disorder, on Xanax. Advised the patient to cut back on the dose of Xanax. A PICC line to be placed today and Social Service will be consulted for possible discharge to [facility]. MARCOS ARGUELLO MD CM:HISPHYS:PATIENT HISTORY AND PHYSICAL EXAMINATION [phone] MRACOS ARGUELLO MD 05/06/19 1220 interface
[~2019-04-20 12:32] MED LIST changes: +AMARYL4 MG PO; +BENTYL PO; +BUSPAR15 MG PO; +CELEBREX100 MG PO; +DEXILANT60 M1 PO; +DOXEPIN50 MG PO; +IBU800 M2 PO; +LASIX20 MG PO; +LASIX80 MG PO; +NATURE'S BLEND F1 MG PO; +ROBAXIN-750750 MG PO; +Synthroid,Levo25 MCG PO; +TOPAMAX50 MG PO; +VANCO 1.751.75 GM/25 IV; +VICO75300 PO; +ZOCOR40 MG PO
--- NOTE | 2019-04-20 13:25 | NUR ---
[facility] 59, admitted to 5E, under the services of MARCOS Suarez MD with a diagnosis of ABD WALL ABSCESS. Chief complaint is ABD WALL ABSCESS. Patient arrived via ambulatory from [place]. Monitor applied. Initial assessment completed. Vital signs taken and recorded. MARCOS SUAREZ MD notified of admission to the unit. Orders received. See assessment for past medical history, medications and allergies. Patient and/or family oriented to unit. [address] visitation policy reviewed. Clothing/patient valuable form completed. EARLINE RIZVI.
[2019-04-20 13:51] VITALS: BP 135/72
--- NOTE | 2019-04-20 14:16 | NUR ---
ADMISSION PHOTOS OBTAINED OF 2 WOUNDS PER POLICY.
[2019-04-20] MEDS ORDERED: DICYCLOMINE HCL20 MG PO (14:39)
[2019-04-20] MEDS ORDERED: BENTYL20 MG/2 ML PO (14:39)
[2019-04-20] MEDS ORDERED: DOXEPIN HCL50 MG PO (14:41)
[2019-04-20] MEDS ORDERED: K-TAB20 MEQ PO (14:44)
[2019-04-20] MEDS ORDERED: XANAX0.25 MG PO (14:47)
--- NOTE | 2019-04-20 14:47 | NUR ---
MED REC UPDATED PER POLICY.
--- NOTE | 2019-04-20 15:12 | NUR ---
NOTIFIED OF CONSULT. WILL KEEP PATIENT NPO AFTER MIDNIGHT.
[2019-04-20] MEDS ORDERED: NORCO 7.5-3251 EACH PO (15:25)
[2019-04-20 16:00] VITALS: BP 119/53
--- NOTE | 2019-04-20 16:31 | NUR ---
NORCO GIVEN PER PRN ORDER FOR C/O ABD PAIN TO ABSCESS. RATES PAIN 8/10. WILL MONITOR EFFECTIVENESS.
[2019-04-20 16:50] LABS: BASO % 0.3 % (0.0-1.0); EOS # 0.3 10*3/uL (0.0-0.4); EOS % 4.8 % (1.0-4.0); HEMATOCRIT 37.3 % (37.0-47.0); HEMOGLOBIN 11.7 g/dl (12.0-16.0); LYMPH # 1.9 10*3/uL (1.3-4.4); MEAN CELL VOLUME 101.6 fl (81.0-99.0); MEAN CORPUSCULAR HGB 31.9 pg (27.0-31.0); MEAN CORPUSCULAR HGB CONC 31.4 g/dl (33.0-37.0); MEAN PLATELET VOLUME 10.7 fl (9.6-12.3); MONO # 0.6 10*3/uL (0.1-1.0); MONO % 8.3 % (3.0-9.0); NEUT # 4.1 10*3/uL (2.3-7.9); NEUT % 59.2 % (47.0-73.0); PLATELET COUNT AUTOMATED 238 10*3/uL (130-400); RED BLOOD COUNT 3.67 10*6/uL (4.10-5.10); RED CELL DISTRI WIDTH 13.9 % (0-14.5); WHITE BLOOD COUNT 6.9 10*3/uL (4.8-10.8)
[2019-04-20 16:57] LABS: BUN 11 mg/dl (7-24); CHLORIDE 110 mmol/L (98-107); CREATININE 0.85 mg/dL (0.55-1.02); POTASSIUM 3.7 mmol/L (3.5-5.1); SODIUM 139 mmol/L (136-145)
--- NOTE | 2019-04-20 17:02 | NUR ---
PATIENT TAKEN DOWN FOR SCHEDULED U/S OF ABSCESS TO ABDOMINAL WALL.
--- NOTE | 2019-04-20 17:15 | NUR ---
CALLED REGARDING XANAX ORDER PER PATIENT REQUEST. PATIENT REQUESTED XANAX TO BE 2MG PO TID PRN FOR ANXIETY. DENIED THIS REQUEST. XANAX 0.25MG PO ORDERED TID PER PRN ORDER FOR C/O ANXIETY. WILL LET PATIENT KNOW ONCE SHE RETURNS FROM SCHEDULED TEST.
--- NOTE | 2019-04-20 17:44 | NUR ---
PT RETURNED TO ROOM.
--- NOTE | 2019-04-20 17:45 | NUR ---
PATIENT STATES NORCO WAS SLIGHTLY EFFECTIVE. WILL CONTINUE TO MONITOR.
[2019-04-20 20:00] VITALS: BP 143/64
--- NOTE | 2019-04-20 23:15 | NUR ---
XANAX GIVEN PER ORDER FOR ANXIETY. SEE MAR.
--- NOTE | 2019-04-20 23:17 | NUR ---
xanax given per order for anxiety. See MAR.
[2019-04-21] VITALS (8 sets, daily range): BP systolic 108–139; BP diastolic 42–69
--- NOTE | 2019-04-21 00:05 | NUR ---
24 HR chart check completed.
--- NOTE | 2019-04-21 00:15 | NUR ---
XANAX NOT EFFECTIVE FOR ANXIETY.
--- NOTE | 2019-04-21 00:21 | NUR ---
PT. STATED TO THIS RN THAT "I DON'T LIKE TO BE CALLED A LIAR AND I SPEAK THE TRUTH." WHEN I QUESTIONED PATIENT TO WHAT SHE WAS TALKING ABOUT SHE SAID "I KNOW THAT YOU TOLD BELKYS I WAS A LIAR WHEN YOU LEFT THE ROOM." PATIENT TRYING TO PICK A FIGHT WITH RN. BELKYS HAD GONE IN ROOM TO HANG AN IV ANTIBIOTIC ABOUT AND HOUR BEFORE THIS ENCOUNTER WITH PATIENT. PATIENT ACCUSING THIS RN OF BEING A LAIR AND TALKING ABOUT HER CONVERSATION SHE HAD WITH HER DAUGHTER AND THAT THIS RN SAID SOMETHING ABOUT "[employer]" OUT IN THE HALLWAY EARLIER. ASSURED PATIENT I SAID NOTHING ABOUT HER CONVERSATION NOR HER AT ANYTIME. PATIENT SAID "I KNOW PEOPLE HERE TOO MARTIN". THIS RN DID NOT ACKNOWLEDGE THIS AND LEFT THE ROOM.
--- NOTE | 2019-04-21 03:00 | NUR ---
Sleeping no acute distress noted. Checked on patient with staff member Asia ALANIZ.
--- NOTE | 2019-04-21 04:39 | NUR ---
SLEEPING, EYES CLOSED RESP. EASY AND REG.
--- NOTE | 2019-04-21 06:10 | NUR ---
ENTERED ROOM WITH WOUND CARE NURSE AND PATIENT APOLOGIZED FOR HOW SHE TREATED THIS RN LAST NIGHT. PATIENT STATED "I'M SO SORRY FOR PUTTING YOU THROUGH THAT LAST NIGHT. I DO RUN OFF THE MOUTH SOMETIMES BUT THAT WAS BEYOND. I JUST NEEDED THAT MEDICINE AND TO SLEEP AND I WAS HOPING I SAW YOU BEFORE YOU LEFT SO I COULD TELL YOU I'M SORRY." APOLOGY ACCEPTED BY THIS RN. WOUND CARE NURSE EXAMINED WOUNDS AND REDRESSED THEM.
--- NOTE | 2019-04-21 06:20 | NUR ---
TOREY BRIGGS [id number] Please refer to the physician's history and physical for past medical history, comorbid conditions, and allergies. Diagnosis: ABD WALL ABSCESS Chris Score: 17,AT RISK WOUND DESCRIPTIONS: Wound Number: 1 Location of the wound: left lower quadrant Thickness: Full Size: 2.2cm x 4.6cm x 0.5cm Tunneling: none Undermining: none Sinus Tract: none Presence of Exudate: Purulent Amount: Moderate Color: Yellow, red Odor: None Periwound Skin Appearance: Erythema Wound edges: approximated Pain (associated with wound): none at time of assessment How does patient state this happened? pt stated this started about 2 weeks ago Wound Number: 2 Location of the wound: left upper thigh Type of wound: surgical Thickness: Full Size: 0.6cm x 1.0cm x 0.5cm Tunneling: none Undermining: none Sinus Tract: none Presence of Exudate: Serosanguineous Amount: Light Color: Red, yellow Odor: None Periwound Skin Appearance: Normal Wound edges: approximated Pain (associated with wound): none at time of assesment How does patient state this happened? pt stated this has been going on since january when she had surgery with Dr. Maya but upon evalution of chart it was Dr. Vela Surface the patient is resting on: Isoflex SKIN PREVENTION RECOMMENDATION: 1. Pressure redistribution support surface as appropriate 2. Elevate heels 3. Remove boots/TEDS every shift and reapply 4. Head of bed 30 degrees as tolerated 5. Assess nutrition and hydration 6. Manage moisture 7. Avoid the use of containment devices while in bed 8. Use absorptive products on surfaces limit layers of linens on bed 9. Turn and reposition every 1-2 hours in bed and every 1 hour in chair as tolerated 10. Weight shifts every 15 minutes while up in chair 11. Offloading with pillows or device to keep heels elevated off bed 12. Monitor skin at least every shift 13. Inspect under medical devices twice a day WOUND TREATMENT RECOMMENDATIONS: Await wound orders per Dr. Vela since he will be performing a procedure today and completed the procedure on the left upper thigh back in january. Patient states the home health nurses and her completes her dressing.
--- NOTE | 2019-04-21 08:30 | NUR ---
Excel Developer in to talk to patient. Patient states lives at home with her . There are 2 steps in the home. Physician: Dr. Julieta Booker Pharmacy: [facility] Home health services: has had in the past out of [facility] but not currently Patient's level of ADLs: MINIMAL ASSIST Patient has working utilities: yes DME: cane Follow-up physician's appointment after d/c: she prefers to make her own follow up appt after discharge Does patient want to access PORTAL?: no Discharge plan discussed with patient. She lives at home with her . She states her eldest and youngest daughters help. She needs minimal assistance with her ADLs and ambulates with a cane. Discussed short term SNF and she is agreeable. When provided with a list of facilities she chose [facility]. boom stick worker notified. She states her daughter can provide transportation on discharge. Dr. Jhony patel. DC WOODARD
--- NOTE | 2019-04-21 09:30 | NUR ---
PATIENT TO SURGERY FOR INCISION AND DRAINAGE OF ABDOMEN.
--- NOTE | 2019-04-21 10:38 | NUR ---
JONATHAN has a message out to [facility] to see if there are any beds available. -JONATHAN West
--- NOTE | 2019-04-21 11:56 | NUR ---
BISQUE FINISHER faxed information to [facility] to review for new referral. -JONATHAN West
--- NOTE | 2019-04-21 13:00 | NUR ---
PATIENT RETURNED FROM SURGERY.
--- NOTE | 2019-04-21 13:14 | NUR ---
PATIENT VERY TEARFUL AT THIS TIME. C/O BACK PAIN AND STATING "I NEED MY XANAX". MEDICATED WITH NORCO AND XANAX PER PRN ORDERS. WILL CONTINUE TO MONITOR.
--- NOTE | 2019-04-21 15:27 | NUR ---
PATIENT RESTING QUIETLY. XANAX AND NORCO EFFECTIVE.
--- NOTE | 2019-04-21 19:45 | NUR ---
RN WENT INTO PATIENTS ROOM AND FOUND HER CRYING. PATIENT STATED "I CAN HEAR THEM TALKING ABOUT ME." RN QUESTIONED WHO. SHE STATED "THEY ARE DOWN THERE TALKING ABOUT ME. I CALLED SECURITY AND THEY COME UP AND TOOK THEIR SIDE OF THE STORY BUT WOULDN'T TAKE MY SIDE. THEY ARE LISTENING TO MY CONVERSATION WITH MY ON THE PHONE. THEY ARE MAKING FUN OF ME AND CALLING ME CRAZY. THEY ARE SAYING I HAVE WEAPONS IN HERE. SO YOU BETTER THROW THOSE SCISSORS AWAY. THEY MAY THINK I AM GOING TO USE THEM AGAINST THEM." RN INFORMED PATIENT THAT THERE IS NO STAFF OUTSIDE OF HER ROOM OR NO SECURITY. PATIENT YELLED "I AM NOT NUTS." RN APOLOGIZED FOR MAKING HER FEEL THAT WAY. I WAS JUST TRYING TO CLARIFY THE SITUATION. RN LEFT ROOM AND CALLED THE PATIENTS DAUGHTER. SHE STATED THAT THIS IS NOT NEW FOR HER MOTHER. THAT SHE HAS HAD PARANOID HALLUCINATIONS IN THE PAST. ASKED RN IF I WANTED HER TO COME IN AND SIT WITH THE PATIENT. I INFORMED HER THAT IT WAS NOT NEEDED AT THIS TIME BUT IF WE DO THAT I WOULD CALL HER.
--- NOTE | 2019-04-21 20:00 | NUR ---
PATIENT MEDICATED WITH NORCO AND XANAX PER PRN ORDER FOR ANXIETY AND BACK PAIN. WILL CONTINUE TO MONITOR.
--- NOTE | 2019-04-21 22:00 | NUR ---
PATIENT RESTING QUIETLY AT THIS TIME. NORCO AND XANAX EFFECTIVE. VERY PLEASANT AT THIS TIME. NO FURTHER MENTION OF PREVIOUS INCIDENT. WILL CONTINUE TO MONITOR.
[2019-04-22] VITALS: BP 129/63
--- NOTE | 2019-04-22 06:11 | NUR ---
[facility] TROUGH 22.8, WILL NOTIFY PHARMACY WHEN THEY ARRIVE. 0600 DOSE HELD.
--- NOTE | 2019-04-22 06:45 | NUR ---
PATIENT IS ACCUSING PA: KAMILAH GILMORE AT THIS TIME FOR WANTING TO STEAL PHONE. ASSURED PATIENT THAT NO ONE WOULD WANT TO STEAL HER PHONE. THAT NO ONE WANTS TO TAKE ANYTHING FROM HER ALL WE ARE CONCERNED ABOUT IS HER HEALTH. SPOKE WITH PA: KAMILAH GILMORE IN REGARDS TO THIS AND KAMILAH STATED THAT PATIENT WAS SHOWING HER THINGS ON HER PHONE AND TOLD HER WHERE SHE HAD PURCHASED IT, AND SHE HAD TO EXCUSE HERSELF FROM ROOM TO ANSWER CALL LIGHT. WHILE LEAVING ROOM ASKED PATIENT IF SHE WOULD LIKE DOOR CLOSED AND PATIENT SAID TEARFULLY IT IS UP TO YOU AND THEN DECIEDE TO SHUT DOOR. CALL LIGHT IS WITHIN REACH.
[2019-04-22 08:00] VITALS: BP 126/60
--- NOTE | 2019-04-22 08:06 | NUR ---
ROPING TENDER sent clinical updates to [facility]. -JONATHAN West
[2019-04-22] MEDS ORDERED: VANCO 1 GR1 GM/250 M IV (08:58)
--- NOTE | 2019-04-22 09:00 | NUR ---
Supervisor Graphite in to see patient. No new needs or request at this time. Discussed discharge planning with Dr. Booker. Waiting on therapy notes to start auth. commissary worker following. When medically stable and auth is received patient will be discharged to [facility].
--- NOTE | 2019-04-22 10:13 | NUR ---
NORCON GIVEN FOR C/O GENERALIZED DISCOMFORT. WILL MONITOR.
--- NOTE | 2019-04-22 11:15 | NUR ---
WES EFFECTIVE PER PT.
--- NOTE | 2019-04-22 11:55 | NUR ---
Occupational Therapy evaluation completed on 5 with full eval to follow. Precautions include obesity,cane use, wounds, PICC line UE, high anxiety with difficulty follow instructions at time d/t anxiety, moderate complexity level 72926. Recommend OT per POC and SNF to enable return home w/ at MA level in ADL. Thank you Monse Call OTr/l
--- NOTE | 2019-04-22 11:55 | NUR ---
PHYSICAL THERAPY Physical therapy evaluation completed, 5E. Full details to follow. Low complexity determined after evaluation/chart review; 59[address]. PT to work on strength, endurance, gait, transfers, balance and safety. Recommend [facility] at [facility]. Thank you Jesenia Rocha, PT , DPT
[2019-04-22 12:00] VITALS: BP 128/64
--- NOTE | 2019-04-22 12:01 | NUR ---
Nutritional Support Services: Educated pt on ADA 1800 calorie diet to promote weight loss. Pt stated she's been trying to eat better but hasn't lost any weight. During interview, we discussed what foods she's been consuming to promote weight loss which included reduced fat/baked chips, fat free cheeses, lean meats such as turkey and fish, wheat bread, fruit, fruit juice, vegetables, nuts, etc. Her food choices are desirable, however, the portion sizes she consumes is the issue. When we discussed the ADA 1800 calorie diet plam, each page lists portion sizes (e.g. 1/2 cup applesauce is 1 serving of CHO/15g CHO). She was consuming sometimes double, or triple this amount. I recommended she start using measuring cups in order to measure her foods so she can visual what an actual serving is. I think she will try to adhere to diet to the best of her ability. Harvey Judd, ANIKA Dietitian
--- NOTE | 2019-04-22 12:59 | NUR ---
CHUTE LOADER faxed PT/OT Evals to [facility] to start PRECERT.- JONATHAN West
[2019-04-22 16:00] VITALS: BP 138/57
[2019-04-22 20:00] VITALS: BP 148/89
--- NOTE | 2019-04-22 23:34 | NUR ---
PATIENT MEDICATED WITH PRN XANAX FOR ANXIETY. WHEN RN ENTERED ROOM, PATIENT WAS TEARFUL SAYING PEOPLE WERE OUTSIDE HER ROOM TALKING ABOUT HER AND SECURITY DID NOT WANT TO HEAR HER SIDE OF THE STORY. REASSURED PATIENT THAT THIS RN HAD NOT HEARD ANYONE TALKING ABOUT HER AND THAT SECURITY HAD NOT BEEN UP. RN DIRECTED THE CONVERSATION TO PATIENT'S FAMILY. PATIENT TALKING ABOUT HER AND TWO DAUGHTERS. PATIENT REQUESTING THAT THE LIGHTS BE TURNED OFF AND THE DOOR SHUT. RN EXPLAINED SHE WOULD BE BACK WITHIN THE HOUR TO FLUSH HER PICC LINE WHEN THE ANTIBIOTIC WAS DONE INFUSING AND THAT THE RN WOULD SHUT THE DOOR WHEN LEAVING. PATIENT VOICED UNDERTANDING.
[2019-04-23] VITALS: BP 149/84
--- NOTE | 2019-04-23 00:15 | NUR ---
PRN XANAX EFFECTIVE. PATIENT ASLEEP WITH RESPIRATIONS EVEN AND UNLABORED. CALL LIGHT WITHIN REACH.
--- NOTE | 2019-04-23 01:55 | NUR ---
24 HR chart check completed.
--- NOTE | 2019-04-23 06:09 | NUR ---
PATIENT MEDICATED WITH PRN NORCO AND XANAX FOR PAIN AND ANXIETY. PATIENT VERY PLEASANT WITH NURSE. PATIENT KEPT STATING THAT HER BUSPAR WAS PROBABLY FAKE AND RN REASSURED HER THAT IT WAS NOT. WHEN RN WAS HANGING VANCOMYCIN THE PATIENT STATED "IT'S PROBABLY JUST WATER." RN REASSURED PATIENT AGAIN THAT IT WAS HER ANTIBIOTIC. MORNING LABS DRAWN FROM PATIENT'S PICC LINE WITHOUT ANY ISSUES. PATIENT VOICED NO OTHER COMPLAINTS AT THIS TIME. RN SHUT THE LIGHTS OUT AND CLOSED THE DOOR PER PATIENT REQUEST. WILL MONITOR FOR EFFECTIVENESS OF PRN MEDICATIONS.
--- NOTE | 2019-04-23 06:37 | NUR ---
PER PATIENT PRN NORCO AND XANAX EFFECTIVE.
[2019-04-23 06:58] LABS: BUN 10 mg/dl (7-24); CREATININE 0.65 mg/dL (0.55-1.02)
[2019-04-23 08:00] VITALS: BP 115/58
[2019-04-23 12:00] VITALS: BP 111/52
--- NOTE | 2019-04-23 14:09 | NUR ---
PHYSICAL THERAPY Patient laying supine in bed upon arrival. Patient states she already performed exercises this date and also performs them multiple times throughout the day. Patient performed bed mobility: supine->sit, CT. Transfer training- sit<>stand transfers performed requiring SBA/S. Pt performed gait training with straight cane and SBA for strength, endurance and balance ~50'x1. Seated rest break provided. Pt benefits from cues for pacing and increased step height/length to decrease fall risk. Patient very emotional throughout therapy session and crying but voiced no c/o's. Patient sitting in recliner chair at session end with call light and tray table within reach. Yuli Durand, MUSIC VIDEO DIRECTOR
[2019-04-23 16:00] VITALS: BP 107/79
--- NOTE | 2019-04-23 16:15 | NUR ---
AAOX3 SITTING UP IN CHAIR IN ROOM. PICC LINE DRESSING CHANGED BY THIS R.N. BLOOD SUGAR 89; NO COVERAGE REQUIRED. PT. VOICES NO C/O AT THIS TIME. ANSWERED PT'S & DAUGHTER'S ALEISHA'S QUESTIONS PERTAINING TO GOING TO [facility]IST[facility]. BOTH VERBALIZED UNDERSTANDING. CALL LIGHT WITHIN REACH.
[2019-04-23 20:00] VITALS: BP 123/59
--- NOTE | 2019-04-23 22:17 | NUR ---
NORCO AND XANAX GIVEN PER PT REQUEST FOR C/O ANXIETY AND PAIN TO ABSCESS RATED 5/10. CALL LIGHT IN REACH.
[2019-04-24] VITALS: BP 108/54
[2019-04-24 06:26] LABS: BASO % 0.2 % (0.0-1.0); EOS # 0.5 10*3/uL (0.0-0.4); HEMATOCRIT 35.8 % (37.0-47.0); HEMOGLOBIN 11.4 g/dl (12.0-16.0); LYMPH # 1.9 10*3/uL (1.3-4.4); LYMPH % 31.3 % (27.0-41.0); MEAN CORPUSCULAR HGB 31.8 pg (27.0-31.0); MEAN CORPUSCULAR HGB CONC 31.8 g/dl (33.0-37.0); MEAN PLATELET VOLUME 10.8 fl (9.6-12.3); MONO # 0.7 10*3/uL (0.1-1.0); NEUT # 2.9 10*3/uL (2.3-7.9); PLATELET COUNT AUTOMATED 174 10*3/uL (130-400); RED BLOOD COUNT 3.58 10*6/uL (4.10-5.10); RED CELL DISTRI WIDTH 13.9 % (0-14.5); WHITE BLOOD COUNT 5.9 10*3/uL (4.8-10.8)
[2019-04-24 06:47] LABS: BUN 11 mg/dl (7-24); CHLORIDE 107 mmol/L (98-107); CREATININE 0.67 mg/dL (0.55-1.02); POTASSIUM 3.3 mmol/L (3.5-5.1); SODIUM 141 mmol/L (136-145)
[2019-04-24 08:00] VITALS: BP 122/53
[2019-04-24 12:00] VITALS: BP 142/72
[2019-04-24 16:00] VITALS: BP 150/65
--- NOTE | 2019-04-24 19:53 | NUR ---
Neurological: AAOX3 Respiratory: NONLABORED, ROOM AIR Breath sounds: DIMINISHED T/O Cough: NONE NOTED Cardiovascular: HRR, DENIES CP/PRESSURE, OBESITY VS. EDEMA, PPP Gastrointestinal: NORMOACTIVE X4 QUADS, DENIES V/D/C, C/O NAUSEA Genito/Urinary: DENIES DYSURIA Musculoskeketal: AMBULATORY:GAIT STEADY, SURGICAL INCISION TO LEFT ABDOMEN:DRESSING INTACT PATIENT IS SITTING ON SIDE OF BED WITH NO S/S OF DISTRESS NOTED. PATIENT C/O NAUSEA, CALL PLACED TO DR. ARGUELLO AND 8MG ZOFRAN ORDERED AT THIS TIME. BED IS LOW, LOCKED, AND CALL LIGHT IS WITHIN REACH. WILL CONTINUE TO MONITOR. BELKYS AGOSTO A
[2019-04-24 20:00] VITALS: BP 123/52
--- NOTE | 2019-04-24 20:19 | NUR ---
PRN ZOFRAN GIVEN FOR C/O NAUSEA. PATIENT TOLERATED WELL. CALL LIGHT IS WITHIN REACH, WILL MONITOR EFFECT.
[2019-04-25] VITALS: BP 115/55
--- NOTE | 2019-04-25 03:00 | NUR ---
PATIENT APPEARS TO BE SLEEPING WITH EASY AND REGULAR RESPERS ON ROOM AIR. CALL LIGHT IS WITHIN REACH, WILL CONTNIUE TO MONITOR.
--- NOTE | 2019-04-25 07:31 | NUR ---
PRECERT is pending. STONECUTTER HAND faxed clinical updates to [facility]. -JONATHAN West
[2019-04-25 08:00] VITALS: BP 111/45
--- NOTE | 2019-04-25 08:17 | NUR ---
OT NOTE Pt was seen this A.M. 1:1 for 26 minute OT session. Upon arrival pt was supine in bed. Pt identified by name and and had no complaints at this time. Pt transferred supine to sit EOB with Zohra for assist with UB and use of bed rail. Sit to stand was completed from the EOB with CGA and use of straight cane for UE support. Functional mobility was then completed into the bathroom with CGA for safety, throughout pt required verbal prompts for slowing down due to being impulsive and increasing risk of falls. Pt had fair carry over. There she transferred on/off standard commode with CGA for safety and use of grab bar for UE support. Clothing management completed with CGA and toilet hygiene completed with supervision while seated. Pt then stood sink side while washing her hands, face, and completing hair care with CGA. Pt required one seated rest break throughout due to quick onset of fatigue. Educated pt on energy conservation techniques throughout, pt verbalized understanding. Functional mobility was then completed back to the recliner with CGA and use of straight cane. While seated requested for pt to doff and surya B socks. Pt was able to complete with modA requiring assist with doning over her toes and throughout pt required several rest breaks due to feeling SOB while forward flexed. Pt was educated and demonstrated on use of sock aid for increased I in lower body dressing and to decrease risk of becoming SOB. Pt was then able to surya with Zohra and use of sock aid, requiring assist for sequencing with sock aid. Pt reported that she had a sock aid at home, resulting in no sock aid being issued at this time. Extra time given throughout session due to slow rate of performance. Pt was left sitting upright in the recliner with call light in hand, tray table in place, and phone in reach. Continue with rec D/C plan to SNF. VITALIY Spence
--- NOTE | 2019-04-25 08:30 | NUR ---
PHYSICAL THERAPY Patient seen this am 1:1 for therapy visit and was supine in bed upon therapsist arrival. Patient identified by name / and reports lower left abdominal quadrant pain / discomfort. Patient transfers supine to sit EOB with MIN A, needing a minute or so to collect herself. Patient then completed sit to stand transfer CGA and ambulates with use of st cane, 10'x 1 to bathroom. Patient ambulated additional 30'x 1, CGA, demonstrating very slow, cautious gait pattern and unsteady balance during 180 degree turns. Patient also tolerated standing eyes open / closed, unsteady "swaying" posture, but was able to correct prior to LOB. Patient returned to bedside chair and remained under OT commercial escrow assistant Supervision who just arrived for OT treatment. Will continue per POC as tolerated, total treatment time 17 minutes. Melvin Engle, ADMINISTRATIVE AND PROGRAM SPECIALIST
--- NOTE | 2019-04-25 09:38 | NUR ---
PRECERT is pending. HR CLERK faxed updated PT/OT notes to [facility]. -JONATHAN West
--- NOTE | 2019-04-25 10:30 | NUR ---
Show Operations Supervisor in to see patient. No new needs or request at this time. rack room worker following. When medically stable and auth is received patient will be discharged to [facility].
--- NOTE | 2019-04-25 12:32 | NUR ---
OT NOTE Pt was seen this P.M. 1:1 for second OT session consisting of 17 minutes. Upon arrival pt was supine in bed. Pt identified by name and and had no complaints at this time. Pt transferred supine to sit EOB with Zohra for assist with UB. While sitting EOB pt completed BUE towel exercises over all planes of motion for 1 X 10 to increase UE strength needed for increased I in self care tasks and functional transfers. Pt then completed five time sit to stand from bed level with no use of UE's in 28 seconds. Pt then transferred sit to supine with SBA. There she was left with call light in hand, tray table in place, and phone in reach. Continue with rec D/C plan to SNF. JOHN Spence/[place]
--- NOTE | 2019-04-25 13:54 | NUR ---
PRECERT is still pending. -JONATHAN West
--- NOTE | 2019-04-25 14:00 | NUR ---
Reviewed patients discharge med [facility] with Dr. Booker via telephone.
--- NOTE | 2019-04-25 14:05 | NUR ---
PRECERT has been obtained the patient can go to [facility] if medically stable. -JONATHAN West
--- NOTE | 2019-04-25 14:37 | NUR ---
RADIO STATION OPERATOR received notice of patient discharge. RADIO STATION OPERATOR spoke with RN-Vickie. RADIO STATION OPERATOR spoke with the patient who said her daughter could transport her to [facility]. RADIO STATION OPERATOR reached out to the patients daughter she said she would be able to transport the patient in 30-45 minutes. RADIO STATION OPERATOR notifed RN and [facility]. RADIO STATION OPERATOR will fax discharge orders to [facility]. -JONATHAN West
--- NOTE | 2019-04-25 15:55 | NUR ---
Discharge instructions reviewed with patient/family. Patient receptive and verbalizes understanding. Follow-up care arranged. Written instructions given to patient/family. New medication, dressing changes and follow up appointments were reviewed with patient and her daughter. Patient was wheeled from unit by staff member with all personal belongings accounted for. Patients daughter transported her to [facility] for continued IV therapy. JUDY MOYA J
--- NOTE | 2019-04-25 19:43 | NUR ---
Spoke with Jose from [facility] regarding the Vancomycin order. We reviewed critical vanc trough levels. It was confirmed that per pharmacy the dose is going to be daily at 0600 beginning 04-26-19. Jose's number is
--- NOTE | 2019-04-26 07:57 | NUR ---
PHYSICAL THERAPY CO-SIGN I approve of the Physical Therapy notes written above. Jesenia osborne, PT, DPT
--- NOTE | 2019-04-26 08:58 | NUR ---
OCCUPATIONAL THERAPY CO-SIGN I approve of the Occupational Therapy notes written above. ADDIS LALA OTR/[place]
== END 2019-04-25 15:55 | disposition other institution (70) | DRG 603 ==
LOC: 5E 12:32
PROVIDERS: ADMIT Internal Medicine
PROC: 0H97XZZ Drainage of Abdomen Skin, External Approach (ICD-10-PCS; principal; 2019-04-21)
PROC: 02HV33Z Insertion of Infusion Device into Superior Vena Cava, Percutaneous Approach (ICD-10-PCS; 2019-04-23)
DX: L02.211 Cutaneous abscess of abdominal wall (principal); F33.9 Major depressive disorder, recurrent, unspecified; Z68.44 Body mass index [BMI] 60.0-69.9, adult; E66.01 Morbid (severe) obesity due to excess calories; F41.1 Generalized anxiety disorder; G89.29 Other chronic pain; E11.9 Type 2 diabetes mellitus without complications; M54.5 Low back pain; M48.00 Spinal stenosis, site unspecified; B95.5 Unspecified streptococcus as the cause of diseases classified elsewhere; B95.62 Methicillin resistant Staphylococcus aureus infection as the cause of diseases classified elsewhere; E87.6 Hypokalemia; Z79.4 Long term (current) use of insulin; Z79.899 Other long term (current) drug therapy; R62.7 Adult failure to thrive

== ENCOUNTER 2019-06-20 14:35 | Inpatient (IN) | payer OTHER ==
[~2019-06-20] VITALS: Ht 170.1 cm; Wt 170.2 kg
[~2019-06-20 14:35] MED LIST changes: +BENTYL20 MG/2 ML PO; +DICYCLOMINE HCL20 MG PO; +DOXEPIN HCL50 MG PO; +K-TAB20 MEQ PO; +NORCO 7.5-3251 EACH PO; +VANCO 1 GR1 GM/250 M IV; +XANAX0.25 MG PO
[2019-06-20 14:36] VITALS: BP 112/56
[2019-06-20 14:56] LABS: BASO % 0.5 % (0.0-1.0); EOS # 0.4 10*3/uL (0.0-0.4); EOS % 6.7 % (1.0-4.0); HEMATOCRIT 40.4 % (37.0-47.0); HEMOGLOBIN 12.9 g/dl (12.0-16.0); LYMPH # 2.4 10*3/uL (1.3-4.4); LYMPH % 39.6 % (27.0-41.0); MEAN CORPUSCULAR HGB 31.9 pg (27.0-31.0); MEAN CORPUSCULAR HGB CONC 31.9 g/dl (33.0-37.0); MEAN PLATELET VOLUME 10.8 fl (9.6-12.3); MONO # 0.6 10*3/uL (0.1-1.0); MONO % 9.9 % (3.0-9.0); NEUT # 2.7 10*3/uL (2.3-7.9); PLATELET COUNT AUTOMATED 200 10*3/uL (130-400); RED BLOOD COUNT 4.04 10*6/uL (4.10-5.10); RED CELL DISTRI WIDTH 13.3 % (0-14.5); WHITE BLOOD COUNT 6.2 10*3/uL (4.8-10.8)
--- NOTE | 2019-06-20 14:56 | NUR ---
SEVERAL RED, INTACT AREAS TO LOWER RT ABDOMEN.
[2019-06-20 15:14] LABS: ALBUMIN 3.2 gm/dl (3.1-4.5); ALKALINE PHOSPHATASE 138 U/L (45-117); BUN 14 mg/dl (7-24); CHLORIDE 109 mmol/L (98-107); CREATININE 0.99 mg/dL (0.55-1.02); POTASSIUM 4.1 mmol/L (3.5-5.1); SGOT/AST 14 IU/L (3-35); SGPT/ALT 25 U/L (12-78); SODIUM 138 mmol/L (136-145); TOTAL PROTEIN 7.1 gm/dL (6.4-8.2)
[2019-06-20 15:17] LABS: TROPONIN I < 0.015 ng/ml (<0.045)
[2019-06-20 15:18] LABS: ACT PARTIAL THROMBO TIME 25.1 SECONDS (20.0-32.1)
--- NOTE | 2019-06-20 15:19 | NUR ---
PT HAS SEVERAL SMALL RED AREAS TO LEFT LOWER ABDOMEN, INTACT. ALSO HAS BAND OF DRY, RED SKIN TO FOLD IN RT LOWER BACK AREA.
[2019-06-20 15:40] LABS: BILIRUBIN NEGATIVE (NEGATIVE); BLOOD NEGATIVE (NEGATIVE); CLARITY CLEAR (CLEAR); COLOR YELLOW (YELLOW); GLUCOSE NEGATIVE (NEGATIVE); KETONE NEGATIVE (NEGATIVE); LEUKO ESTERASE NEGATIVE (NEGATIVE); NITRITE NEGATIVE (NEGATIVE); PH 5.5 (5.0-9.0); SPECIFIC GRAVITY 1.025 (1.005-1.030); UROBILINOGEN 0.2 E.U./dl (0.2-1.0)
[2019-06-20 15:48] LABS: BACTERIA TRACE; EPITHELIAL CELLS 31-40; WBC 0-2 wbc/hpf (0-5)
[2019-06-20 16:51] VITALS: BP 92/42
--- NOTE | 2019-06-20 17:31 | NUR ---
RESTING IN BED, EYES CLOSED.
[2019-06-20 17:32] VITALS: BP 110/60
[2019-06-20 18:20] VITALS: BP 104/41
--- NOTE | 2019-06-20 18:21 | NUR ---
[facility] , under the services of MARCOS Suarez MD with a diagnosis of CHEST PAIN. Chief complaint is GENERALIZED PAIN. Patient arrived via bed from ER. Monitor applied. Initial assessment completed. Vital signs taken and recorded. MARCOS SUAREZ MD notified of admission to the unit. Orders received. See assessment for past medical history, medications and allergies. Patient and/or family oriented to unit. [facility]. Clothing/patient valuable form completed. EMPERATRIZ CRAWFORD
--- NOTE | 2019-06-20 19:39 | NUR ---
CALL PLACED TO DR. BORREGO TO ADVISE OF CONSULT ORDER RECEIVED FOR PATIENT TO HAVE STRESS TEST AT 0700, DISCONTINUED PREVIOUS ORDER AND PUT IN NEW ORDER FOR 0700.
[2019-06-20 20:00] VITALS: BP 107/91
--- NOTE | 2019-06-20 22:13 | NUR ---
PATIENT MEDICATED WITH NORCO AND XANAX. STATES THAT SHE TAKES AT HOME AT [facility] AT 0900/1500/2100. WILL CONINTUE TO MONITOR
--- NOTE | 2019-06-20 23:13 | NUR ---
XANAX AND NORCO EFFECTIVE PER PATIENT
[2019-06-21] VITALS: BP 110/43
--- NOTE | 2019-06-21 02:37 | NUR ---
24 HR chart check completed.
--- NOTE | 2019-06-21 06:09 | NUR ---
D10W 250CC TO BE GIVEN AT THIS TIME FOR BGM OF 60. PATIENT SATTED SHE FELT "SLIGHTLY OFF BUT NOTHING CRAZY" PATIENT IS UP AND CLEANING HERSELF FOR STRESS TEST. CARDIAC NURSE AWARE OF LOW BGM AND COMING DOWN ON D10W.
--- NOTE | 2019-06-21 07:00 | NUR ---
INFORMED CONSENT OBTAINED FOR LEXISCAN NUCLEAR STRESS TEST WITH DR. CASTELAN. RESTING EKG NSR WITH A RESTING HR OF 82 AND BP OF 102/68. LUNGS DIMINISHED BREATH SOUNDS WITH SPO2 OF 96% ON ROOM AIR. PT COMPLETED A 1:00 LEXISCAN PROTOCOL RECEIVING LEXISCAN 0.4 MG IV OVER 10 SECONDS. HAD NO CHEST PAIN OR ANY EKG CHANGES. DID C/O FEELING "LIGHTHEADED" THAT RESOLVED IN RECOVERY. HAD A PEAK HR OF 100 WITH BP OF 90/50. LAST RECOVERY HR OF 97 WITH BP OF 94/50. END OF RECOVERY PT HAD DIET COLA AND CRACKERS WITH PEANUT BUTTER. REMAINED IN CONTACT ISOLATION.
--- NOTE | 2019-06-21 07:24 | NUR ---
ARRIVED ON SHIFT, PATIENT IN CARDIOLOGY FOR STRESS TEST, REPORT RECEIVED.
--- NOTE | 2019-06-21 07:26 | NUR ---
Shift chart check completed.
--- NOTE | 2019-06-21 09:00 | NUR ---
RETURNED TO FLOOR, INTRODUCED SELF TO PATIENT, PLACED TELEMETRY UNIT.
[2019-06-21 09:17] VITALS: BP 110/78
--- NOTE | 2019-06-21 09:38 | NUR ---
PATIENT C/O OFGENERALIZED PAIN 01/29 DESCRIBES ACHING, MEDICATED WITH NORCO ORDERED. ALSO C/O FEELING ANXIOUS, REQUESTED HER XANAX. WHITE BOARD UPDATED.
--- NOTE | 2019-06-21 09:53 | NUR ---
CALL PLACED TO DR. ARGUELLO ORDER RECEIVED TO RESUME 1800 HUBER ADA DIET.
--- NOTE | 2019-06-21 10:38 | NUR ---
PATIENT HAS SOME RELIEF FROM NORCO GIVEN X 1 HOUR, VERSED SHE TAKES MORE FREQUENTLY AT HOME, ADVISED THIS IS HOW THE DOCTOR ORDERED IT. VERSED UNDERSTANDING.
[2019-06-21 12:00] VITALS: BP 103/57
[2019-06-21 16:00] VITALS: BP 112/50
--- NOTE | 2019-06-21 18:04 | NUR ---
PATIENT C/O GENERALIZED PAIN 8/ MEDICATED WITH NORCO ORDERED PRN.
--- NOTE | 2019-06-21 19:04 | NUR ---
PATIENT STATED NORCO WAS EFFECTIVE
[2019-06-21 20:00] VITALS: BP 126/55
--- NOTE | 2019-06-21 20:16 | NUR ---
PATIENT MEDICATED WITH XANAX FOR C/O ANXIETY, STATED SHE FELT LIKE SHE HAD A PANIC ATTACK. WILL MONITOR
--- NOTE | 2019-06-21 21:16 | NUR ---
PATIENT STATED XANAX WAS EFFECTIVE.
--- NOTE | 2019-06-21 23:04 | NUR ---
REPORT GIVEN TO JODEE
--- NOTE | 2019-06-21 23:30 | NUR ---
PT RESTING IN BED. RESPS EASY AND NON LABORED. NO S/S OF DISTRESS NOTED. CALL LIGHT WITHIN REACH.
[2019-06-22] VITALS: BP 94/52
--- NOTE | 2019-06-22 00:10 | NUR ---
PT AWAKE COMPLAINING OF ANXIETY AND INSOMNIA. MEDICATED PER ORDER. WILL MONITOR FOR RELIEF. VOICES NO OTHER CONCERNS AT THIS TIME.SITTING UP IN CHAIR. CALL LIGHT WITHIN REACH.
--- NOTE | 2019-06-22 02:09 | NUR ---
PRN ATIVAN EFFECTIVE PER PT
--- NOTE | 2019-06-22 02:44 | NUR ---
24 HR chart check completed.
--- NOTE | 2019-06-22 05:32 | NUR ---
PT COMPLAINS OF 7/10 "ALL OVER" PAIN. MEDICATED PER ORDER. WILL MONITOR FOR RELIEF. VOICES NO OTHER CONCERNS AT THIS TIME. RESTING IN BED. RESPS EASY AND NO LABORED. NO S/S OF DISTRESS NOTED. CALL LIGHT WITHIN REACH.
--- NOTE | 2019-06-22 06:44 | NUR ---
PAIN MEDICATION EFFECTIVE PER PT
[2019-06-22 06:47] LABS: BASO % 0.3 % (0.0-1.0); EOS # 0.6 10*3/uL (0.0-0.4); EOS % 8.9 % (1.0-4.0); HEMATOCRIT 36.7 % (37.0-47.0); HEMOGLOBIN 11.6 g/dl (12.0-16.0); LYMPH # 2.7 10*3/uL (1.3-4.4); LYMPH % 41.5 % (27.0-41.0); MEAN CELL VOLUME 97.9 fl (81.0-99.0); MEAN CORPUSCULAR HGB 30.9 pg (27.0-31.0); MEAN CORPUSCULAR HGB CONC 31.6 g/dl (33.0-37.0); MEAN PLATELET VOLUME 10.8 fl (9.6-12.3); MONO # 0.8 10*3/uL (0.1-1.0); MONO % 12.9 % (3.0-9.0); NEUT # 2.3 10*3/uL (2.3-7.9); NEUT % 36.2 % (47.0-73.0); PLATELET COUNT AUTOMATED 187 10*3/uL (130-400); RED BLOOD COUNT 3.75 10*6/uL (4.10-5.10); RED CELL DISTRI WIDTH 13.4 % (0-14.5); WHITE BLOOD COUNT 6.4 10*3/uL (4.8-10.8)
[2019-06-22 07:18] LABS: CREATININE 1.24 mg/dL (0.55-1.02); POTASSIUM 4.2 mmol/L (3.5-5.1)
[2019-06-22 08:00] VITALS: BP 118/50
[2019-06-22 12:00] VITALS: BP 96/50
--- NOTE | 2019-06-22 12:43 | NUR ---
NORCO 7.5/325 MG GIVEN FOR C/O GENERALIZED PAIN,01/29. XANAX 0.25 MG GIVEN PER PT REQUEST FOR ANXIETY.
--- NOTE | 2019-06-22 14:56 | NUR ---
DR NAVA ROUNDED AND SEEN PT.
[2019-06-22 16:00] VITALS: BP 96/50; BP 97/41
--- NOTE | 2019-06-22 19:10 | NUR ---
Patient resting quietly with no c/o discomfort. Respirations easy and regular. Vital signs stable. No overt distress. MORE AG
[2019-06-22 20:00] VITALS: BP 118/92
--- NOTE | 2019-06-22 22:08 | NUR ---
PATIENT MEDICATED WITH XANAX AND DULCOLAX FOR C/O ANXIETY AND CONSTIPATION. WILL CONTINUE TO MONITOR
--- NOTE | 2019-06-22 23:08 | NUR ---
XANAX EFFECTIVE PER PATIENT
[2019-06-23] VITALS: BP 102/52
--- NOTE | 2019-06-23 04:00 | NUR ---
PATIENT SLEEPING, EYES CLOSED. RESP ARE ERND. CALL LIGHT WITHIN REACH.
[2019-06-23 08:10] VITALS: BP 108/60
[2019-06-23] MEDS ORDERED: Flonase 0.05% 120 Me NAS (08:31)
--- NOTE | 2019-06-23 11:01 | NUR ---
Discharge instructions reviewed with patient/family. Patient receptive and verbalizes understanding. Follow-up care arranged. Written instructions given to patient/family. Patient educated on new medications and follow up visits. Patient was wheeled from unit by staff member with all personal belongings accounted for. JUDY MOYA
== END 2019-06-23 11:01 | disposition home or self-care (01) | DRG 683 ==
LOC: ED 14:35 → 4E 17:43 → EDHOLD 17:43 → 4E 18:02
PROVIDERS: Emergency Medicine; ADMIT Internal Medicine
PROC: 3E073KZ Introduction of Other Diagnostic Substance into Coronary Artery, Percutaneous Approach (ICD-10-PCS; principal; 2019-06-21)
PROC: 4A02XM4 Measurement of Cardiac Total Activity, External Approach (ICD-10-PCS; principal; 2019-06-21)
DX: N17.9 Acute kidney failure, unspecified (principal); Z68.43 Body mass index [BMI] 50.0-59.9, adult; F33.1 Major depressive disorder, recurrent, moderate; R07.89 Other chest pain; E66.01 Morbid (severe) obesity due to excess calories; G89.29 Other chronic pain; M54.5 Low back pain; F41.1 Generalized anxiety disorder; E11.649 Type 2 diabetes mellitus with hypoglycemia without coma; E11.22 Type 2 diabetes mellitus with diabetic chronic kidney disease; N18.3 Chronic kidney disease, stage 3 (moderate); I12.9 Hypertensive chronic kidney disease with stage 1 through stage 4 chronic kidney disease, or unspecified chronic kidney disease; E03.9 Hypothyroidism, unspecified; E78.2 Mixed hyperlipidemia; J45.909 Unspecified asthma, uncomplicated; Z86.14 Personal history of Methicillin resistant Staphylococcus aureus infection; Z79.4 Long term (current) use of insulin; Z79.899 Other long term (current) drug therapy

== ENCOUNTER → 2019-07-04 | Outpatient (CLI) | payer OTHER ==
[~2019-07-04] MED LIST changes: +Flonase 0.05% 120 Me NAS
[2019-07-05 09:03] LABS: RHEUMATOID ARTHRITIS FACTOR <10.0 IU/mL (0.0-13.9)
[2019-07-05 11:07] LABS: ANTI-DSDNA ANTIBODIES 096339 <1 IU/mL (0-9)
[2019-07-05 22:05] LABS: CCP ANTIBODIES IGG/IGA 9 units (0-19)
== END | disposition home or self-care (01) ==
LOC: LAB 10:16
PROVIDERS: Internal Medicine
DX: R52 Pain, unspecified (principal)

== ENCOUNTER 2019-08-06 21:36 | Inpatient (IN) | payer OTHER ==
[~2019-08-06] VITALS: Ht 170.1 cm; Wt 161.5 kg
[2019-08-06 21:45] VITALS: BP 105/68
--- NOTE | 2019-08-06 22:35 | NUR ---
ANAIS TO ATTAIN IV ACESS AT THIS TIME. ANOTHER RN TO ATTEMPT. DR. HAGER MADE AWARE OF DELAY
[2019-08-06 23:00] LABS: ALKALINE PHOSPHATASE 124 U/L (45-117); BUN 22 mg/dl (7-24); CHLORIDE 103 mmol/L (98-107); CREATININE 1.38 mg/dL (0.55-1.02); LIPASE 112 U/L (73-393); SGOT/AST 26 IU/L (3-35); SGPT/ALT 30 U/L (12-78); SODIUM 139 mmol/L (136-145); TOTAL PROTEIN 7.4 gm/dL (6.4-8.2)
[2019-08-06 23:02] LABS: TROPONIN I < 0.015 ng/ml (<0.045)
--- NOTE | 2019-08-06 23:05 | NUR ---
PT CLEANED FROM DIARRHEA PRIOR TO COMING TO ED. NEW PADS PLACED UNDER, NEW LINENS ON BED. 3 WARM BLANKETS GIVEN PER REQUEST TO PT. PT PLACED ON BEDPAN PER HER REQUEST INSTEAD OF STRAIGHT CATHING TO PROVIDE NEEDED URINE SPECIMAN. PT STATES "I FILLED IT UP, HURRY BEFORE IT OVERFLOWS". BEDPAN REMOVED AND BEDPAN ABSOLUTELY DRY. PT STATES "I JUST WENT. PT SHOWN DRY BEDPAN AND INFORMED NO URINE CAME OUT.
--- NOTE | 2019-08-06 23:30 | NUR ---
PT INFORMED SHE WILL NEED TO BE STRAIGH CATHED FOR NEEDE URINE SPECIMAN AND STATED " I CAN PEE IN A LESLIE, GIVE ME A LESLIE". PT PLACE ON BEDPAN AGAIN TO ATTEMPT TO PROVIDE NEEDED URINE SPECIMAN. PT AGAIN STATES "HURRY UP, I JUST FILLED IT UP". BEDPAN DRY AND NO URINE ON BED AROUND PT. PT REDIRECTED FOR THE NEED TO STRAIGHT CATH SINCE UNABLE TO PROVIDE ON OWN AT THIS TIME. THIS RN AND WAREHOUSE FOREMAN HARITHA AT BEDSIDE FOR STRAIGHT CATH. UNSUCCESSFUL STRAIGHT CATH AND PT YELLING OUT TO STOP.
--- NOTE | 2019-08-07 00:05 | NUR ---
MORE WARM BLANKETS PROVDIED TO PT -PER REQUEST.
[2019-08-07 00:27] LABS: BASO % 0.2 % (0.0-1.0); EOS # 0.5 10*3/uL (0.0-0.4); EOS % 2.8 % (1.0-4.0); HEMATOCRIT 34.2 % (37.0-47.0); LYMPH # 2.6 10*3/uL (1.3-4.4); LYMPH % 14.8 % (27.0-41.0); MEAN CELL VOLUME 96.3 fl (81.0-99.0); MEAN CORPUSCULAR HGB CONC 32.2 g/dl (33.0-37.0); MEAN PLATELET VOLUME 10.5 fl (9.6-12.3); MONO # 1.3 10*3/uL (0.1-1.0); MONO % 7.4 % (3.0-9.0); NEUT # 12.6 10*3/uL (2.3-7.9); NEUT % 73.1 % (47.0-73.0); PLATELET COUNT AUTOMATED 283 10*3/uL (130-400); RED BLOOD COUNT 3.55 10*6/uL (4.10-5.10); RED CELL DISTRI WIDTH 13.2 % (0-14.5); WHITE BLOOD COUNT 17.3 10*3/uL (4.8-10.8)
[2019-08-07 00:38] LABS: INTERNATIONAL NORM RATIO 1.3 (2.0-3.5)
--- NOTE | 2019-08-07 00:44 | NUR ---
PT TO CT
--- NOTE | 2019-08-07 01:02 | NUR ---
PT RETURNED FROM CT
--- NOTE | 2019-08-07 01:30 | NUR ---
PT INFORMED OF THE URINE SPECIMAN NEEDED AND REQUESTED TO BE PLACED ON BEDPAN STATING " I CAN PEE". PT AGAIN UNABLE TO PROVIDE URINE SPECIMAN.AFTER PT STATES " I JUST FILLED IT UP, IT OVERFLOWED AND MY BACK IS ALL WET". THIS RN HAD PT SIT UP TO ASSESS PT'S BACK. PT IS DRY, BED IS DRY, NO URINE ON BED. PT STATES " BUT I JUST WENT".
--- NOTE | 2019-08-07 02:56 | NUR ---
THIS RN AT BEDSIDE WITH ARASELI AUGUSTINE FOR STRAIGHT CATH TO OBTAIN URINE SPECIMEN PER MD HAGER VERBAL ORDER.UNSUCCESSFUL ATTEMPT MADE TO OBTAIN URINE SPECIMEN.PT REFUSES ANY ADDITIONAL ATTEMPTS TO OBTAIN URINE VIA STRAIGHT CATH.MD HAGER MADE AWARE OF ATTEMPT MADE FOR URINE AND PT REQUEST TO STOP.
--- NOTE | 2019-08-07 04:45 | NUR ---
A 59, admitted to , under the services of MARCOS Suarez MD with a diagnosis of UTI, CELLULITIS, ACUTE HYPOKALEMIA, PARANOID, GASTROENTERITIS. Chief complaint is COLD SYMPTOMS. Patient arrived via bed from ER. Monitor applied. Initial assessment completed. Vital signs taken and recorded. MARCOS SUAREZ MD notified of admission to the unit. Orders received. See assessment for past medical history, medications and allergies. Patient and/or family oriented to unit. [facility] visitation policy reviewed. Clothing/patient valuable form completed. NATHEN STEIN
[2019-08-07] MEDS ORDERED: SERTRALINE HYD100 MG PO (04:56)
[2019-08-07 05:11] LABS: BILIRUBIN NEGATIVE (NEGATIVE); BLOOD 2+ (NEGATIVE); CLARITY CLEAR (CLEAR); COLOR YELLOW (YELLOW); GLUCOSE NEGATIVE (NEGATIVE); KETONE NEGATIVE (NEGATIVE); SPECIFIC GRAVITY 1.015 (1.005-1.030)
[2019-08-07 05:12] LABS: LEUKO ESTERASE 2+ (NEGATIVE); NITRITE NEGATIVE (NEGATIVE); UROBILINOGEN 0.2 E.U./dl (0.2-1.0)
[2019-08-07 05:37] LABS: EPITHELIAL CELLS 40-45; WBC 31-40 wbc/hpf (0-5)
--- NOTE | 2019-08-07 06:04 | NUR ---
SPOKE WITH DR ARGUELLO. ORDERS RECIEVED. WILL PUT THEM IN.
--- NOTE | 2019-08-07 06:32 | NUR ---
DR ARGUELLO ORDERED ALL HOME MEDS TO BE CONTINUED, NS AT 60 ML/HR, BLOOD CULTURES X2, URINE CULTURE, ADA 1800 CALORIE DIET, BLOOD SUGARS ACHS WITH SLIDING SCALE COVERAGE, NYSTATIN FOR EXCORIATED AREAS, AND ROCEPHIN 1GM DAILY. ORDERS PUT IN.
[2019-08-07 11:47] VITALS: BP 107/42
--- NOTE | 2019-08-07 12:00 | NUR ---
PT RETURNED FROM I&D PROCEDURE WITH DR. WOOTEN. SHE IS RESTING COMFORTABLY WITH NO COMPLAINTS. DENIES PAIN OR DISCOMFORT.
[2019-08-07 12:02] VITALS: BP 120/39
[2019-08-07 16:00] VITALS: BP 125/54
[2019-08-07 20:00] VITALS: BP 110/48
--- NOTE | 2019-08-07 21:16 | NUR ---
NORCO GIVEN PER PATIENT REQUEST FOR COMPLAINTS OF PAIN LOCATED IN HER ABDOMEN WHERE SHE HAD I&D PROCEDURE AND IN HER LOWER BACK RATED 8/10. WILL ASSESS EFFECTIVENESS.
--- NOTE | 2019-08-07 22:15 | NUR ---
TRENTCO EFFECTIVE PER PATIENT. PATIENT RESTING QUIETLY IN BED. CALL LIGHT WITHIN REACH. NO FURTHER COMPLAINTS. WILL CONTINUE TO MONITOR.
[2019-08-08] VITALS: BP 117/57
[2019-08-08 06:17] LABS: BASO % 0.3 % (0.0-1.0); EOS # 0.5 10*3/uL (0.0-0.4); EOS % 4.4 % (1.0-4.0); HEMATOCRIT 30.2 % (37.0-47.0); HEMOGLOBIN 9.6 g/dl (12.0-16.0); LYMPH % 18.7 % (27.0-41.0); MEAN CELL VOLUME 99.3 fl (81.0-99.0); MEAN CORPUSCULAR HGB 31.6 pg (27.0-31.0); MEAN CORPUSCULAR HGB CONC 31.8 g/dl (33.0-37.0); MEAN PLATELET VOLUME 10.9 fl (9.6-12.3); MONO % 9.6 % (3.0-9.0); NEUT # 6.9 10*3/uL (2.3-7.9); NEUT % 65.5 % (47.0-73.0); PLATELET COUNT AUTOMATED 257 10*3/uL (130-400); RED BLOOD COUNT 3.04 10*6/uL (4.10-5.10); RED CELL DISTRI WIDTH 13.5 % (0-14.5); WHITE BLOOD COUNT 10.6 10*3/uL (4.8-10.8)
[2019-08-08 06:25] LABS: BUN 13 mg/dl (7-24); CHLORIDE 107 mmol/L (98-107); CREATININE 0.76 mg/dL (0.55-1.02); POTASSIUM 3.1 mmol/L (3.5-5.1); SODIUM 142 mmol/L (136-145)
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
--- NOTE | 2019-08-08 06:50 | NUR ---
PATIENT UNCOOPERATIVE WHEN TRYING TO VISUALIZE SKIN FOLD AREAS AND BUTTOCKS. PATIENT REFUSING TO LET WOUND CARE NURSE, CRYSTAL, AND MYSELF ASSESS AREAS.
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
--- NOTE | 2019-08-08 07:41 | NUR ---
Spoke with Dr. Booker regarding K+ level. See labs. See new orders.
[2019-08-08 08:00] VITALS: BP 116/58
--- NOTE | 2019-08-08 08:11 | NUR ---
Rector given per patient request for c/o pain rated 8/10 in abdomen. Will monitor.
--- NOTE | 2019-08-08 08:45 | NUR ---
Rohit effective. Patient satisfied.
--- NOTE | 2019-08-08 09:00 | NUR ---
Construction Operations Manager in to talk to patient. Patient states lives at home with her . There are 2 steps in the home. Physician: Dr. Julieta Booker Pharmacy: [facility] Home health services: would like [facility] on discharge Patient's level of ADLs: MINIMAL ASSIST Patient has working utilities: yes DME: cane Follow-up physician's appointment after d/c: she prefers to make her own follow up appt after discharge Does patient want to access PORTAL?: no Discharge plan discussed with patient. She lives at home with her . She states her eldest and youngest daughters help. She needs minimal assistance with her ADLs and ambulates with a cane. Discussed short term SNF and she refuses. Discussed home health care services and she is agreeable. When provided with a list of agencies she chose [facility]. When medically stable she will be discharged to home with [facility] AT THE [facility] services. She states her daughter will provide transportation on discharge. DC WOODARD
--- NOTE | 2019-08-08 11:45 | NUR ---
After multiple failed attempts at a new IV site was contacted. See new orders.
[2019-08-08 16:00] VITALS: BP 120/76
--- NOTE | 2019-08-08 18:34 | NUR ---
I changed dressing to abdominal wound twice due to large amounts of purulent drainage. Patient tolerated well.
[2019-08-08 20:00] VITALS: BP 90/43
[2019-08-09] VITALS: BP 98/41
[2019-08-09 07:01] LABS: BUN 12 mg/dl (7-24); CHLORIDE 107 mmol/L (98-107); CREATININE 0.71 mg/dL (0.55-1.02); IRON 56 ug/dL (50-170); POTASSIUM 3.2 mmol/L (3.5-5.1); SODIUM 142 mmol/L (136-145); TOTAL IRON BINDING CAPACITY 105 ug/dl (250-450)
[2019-08-09 07:03] LABS: BASO % 0.3 % (0.0-1.0); HEMATOCRIT 30.6 % (37.0-47.0); HEMOGLOBIN 9.7 g/dl (12.0-16.0); LYMPH # 1.9 10*3/uL (1.3-4.4); LYMPH % 21.6 % (27.0-41.0); MEAN CELL VOLUME 99.7 fl (81.0-99.0); MEAN CORPUSCULAR HGB 31.6 pg (27.0-31.0); MEAN CORPUSCULAR HGB CONC 31.7 g/dl (33.0-37.0); MEAN PLATELET VOLUME 11.2 fl (9.6-12.3); MONO # 0.8 10*3/uL (0.1-1.0); MONO % 8.7 % (3.0-9.0); NEUT # 5.9 10*3/uL (2.3-7.9); NEUT % 68.4 % (47.0-73.0); PLATELET COUNT AUTOMATED 259 10*3/uL (130-400); RED BLOOD COUNT 3.07 10*6/uL (4.10-5.10); RED CELL DISTRI WIDTH 13.5 % (0-14.5); WHITE BLOOD COUNT 8.6 10*3/uL (4.8-10.8)
--- NOTE | 2019-08-09 07:35 | NUR ---
Shift chart check completed.
--- NOTE | 2019-08-09 08:10 | NUR ---
DRESSING CHANGES TO PT LLQ OF ABDOMEN AND LEFT MILLER. PT TOLERATED WELL.
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
--- NOTE | 2019-08-09 09:20 | NUR ---
DR ARGUELLO NOTIFIED OF CRTICAL URINE CULTURE VRE RESULTS REPORTED TO THIS NURSE BY LAB. NEW ORDERS RECEIVED TO D/C VANCOMYCIN AND TO GIVE PT ZYVOX 600 MG BID. APPROPRIATE ORDERS PLACED. WILL NOTIFY PT OF CHANGES.,
--- NOTE | 2019-08-09 10:30 | NUR ---
Pharmacovigilance Scientist in to see patient. Discussed short term SNF and she refuses. Discussed home health care services and she remains agreeable to [facility]. When medically stable she will be discharged to home with [facility] services.
[2019-08-09 12:00] VITALS: BP 88/40
[2019-08-09 13:42] VITALS: BP 122/60
[2019-08-09 16:00] VITALS: BP 106/50
[2019-08-09 20:00] VITALS: BP 96/48
[2019-08-10] VITALS: BP 99/47
--- NOTE | 2019-08-10 03:08 | NUR ---
24 HR chart check completed.
[2019-08-10] MEDS ORDERED: DOXYCYCLINE100 MG PO (07:53)
[2019-08-10 08:00] VITALS: BP 100/50
--- NOTE | 2019-08-10 08:36 | NUR ---
Spoke with Dr. Vela he is requesting for a wound vac to be applied and for the patient to follow up in the wound care center upon discharge. Patient is scheduled with Rossy ZAMAN in the wound care center on 08/12/19 at 9:00am and is instructed to bring wound vac supplies to the center for dressing changes.
--- NOTE | 2019-08-10 09:00 | NUR ---
Lead Web Developer in to see patient. Dr. Booker wishes for the patient to go to SNF. Discussed short term SNF with patient and she is agreeable. When provided with a list of facilities she chose [facility]. land use planner notified.
--- NOTE | 2019-08-10 09:53 | NUR ---
TOREY BRIGGS [id number] Please refer to the physician's history and physical for past medical history, comorbid conditions, and allergies. Diagnosis: UTI PARANOID BEHAVIOR CELLULITIS GASTROENTERITIS Chris Score: 15,AT RISK WOUND DESCRIPTIONS: Wound Number: 1 Location of the wound: Left lower abdomen Type of wound: surgical Thickness: Full Size: 2.0cm x 3.5cm x 4.8cm Tunneling: none Undermining: none Sinus Tract: none Presence of Exudate: Serosanguineous Amount: Moderate Color: Red, yellow Odor: None Periwound Skin Appearance: Normal Wound edges: approximated Pain (associated with wound): tender to touch Wound vac dressing was applied per provider order. Location: left lower quadrant, cleansing agent: NSS, type of foam: 1 piece of white, mode of therapy: continous, intensity: low, next change should be 08/12/19. Patient states she will be the one who will do the wound vac changes when she goes home. She states she will not follow up with home health at this time. She states she will just follow up in the wound care center. Surface the patient is resting on: Isoflex SKIN PREVENTION RECOMMENDATION: 1. Pressure redistribution support surface as appropriate 2. Elevate heels 3. Remove boots/TEDS every shift and reapply 4. Head of bed 30 degrees as tolerated 5. Assess nutrition and hydration 6. Manage moisture 7. Avoid the use of containment devices while in bed 8. Use absorptive products on surfaces limit layers of linens on bed 9. Turn and reposition every 1-2 hours in bed and every 1 hour in chair as tolerated 10. Weight shifts every 15 minutes while up in chair 11. Offloading with pillows or device to keep heels elevated off bed 12. Monitor skin at least every shift 13. Inspect under medical devices twice a day WOUND TREATMENT RECOMMENDATIONS: Continue wound vac dressing change per provider order.
--- NOTE | 2019-08-10 09:54 | NUR ---
BEST Blood stating patient will consider [facility] if she qualifies for snf placement. Contacted [facility] with details regarding referral such as wound vac, isolation needs. They are stating they do not have an isolation room available at this time and are unable to accept. Contacted [facility] with same details, waiting for reply.
--- NOTE | 2019-08-10 11:03 | NUR ---
Singing Messenger in to see patient. Discussed [facility] and [facility] do not have isolation rooms presently. Checked [facility] but they do not take patient's insurance. [facility] does take patient's insurance. Discussed with patient. Patient asked me to call her daughter Trini to discuss. Spoke to Trini at [phone] regarding care home. Informed Trini of above and she is agreeable to [facility]. Trini states she will be at the hospital in about 20 minutes. Patient aware.
[2019-08-10 12:00] VITALS: BP 110/62
--- NOTE | 2019-08-10 13:30 | NUR ---
Occupational therapy orders received and OT evaluation completed in full on floor four. Patient precautions include fall risk, bed alarm, R UE picc line, increased pain, abdominal wound vac, contact prec. Per OT eval, OT recommends SNF. Patient would benefit from OT treatment to maximize safety and independence with ADLs and transfers. Patient complexity is high, 25556. Thank you for the referral. Yanely Thompson, OTR/L
--- NOTE | 2019-08-10 15:14 | NUR ---
PHYSICAL THERAPY Juan completed full report to follow high level of complexity 56015 recomend SNF at discharge. PT to work on transfers,amb,balance,strengthening and safety Shelia Fofana PT
[2019-08-10 16:00] VITALS: BP 118/60
[2019-08-10 20:00] VITALS: BP 122/74
--- NOTE | 2019-08-10 20:24 | NUR ---
NORCO ADMINISTERED FOR PT C/O LEFT SIDED ANKLE PAIN RATED AN 8/10. PT STATES SHE "BELIEVES SHE FELL OUT IN THE YARD BEFORE COMING TO THE HOSPITAL". SLIGHT SWELLING TO THE LEFT ANKLE ON ASSESSMENT. NO OTHER COMPLAINTS AT THIS TIME.
--- NOTE | 2019-08-10 21:01 | NUR ---
SPOKE WITH DAUGHTER, SALIMA. STATES THATS HE WOULD LIKE THE PATIENT TO RECEIVE XANAX THIS EVENING WITH HER NIGHT TIME MEDICATION.
--- NOTE | 2019-08-10 22:37 | NUR ---
PT ASLEEP AT THIS TIME. NO SIGNS OF DISCOMFORT OR DISTRESS.
[2019-08-11] VITALS: BP 120/72
--- NOTE | 2019-08-11 01:26 | NUR ---
NORCO ADMINISTERED FOR PT C/O LEFT ANKLE PAIN RATED AN 8/10 ON THE PAIN SCALE. WILL CONTINUE TO MONITOR AND REASSESS.
--- NOTE | 2019-08-11 02:23 | NUR ---
PT ASLEEP AT THIS TIME. NO SIGNS OF DISCOMFORT OR DISTRESS.
--- NOTE | 2019-08-11 03:09 | NUR ---
IN TO ASSIST RADHA WITH WOUND VAC CHANGE AT THIS TIME. EXPLAINED THAT THE VAC WAS MAINTAING VARIOUS PRESSURES THROUGHOUT THE EVENING AND SHE FOUND IT TO BE AN APPROPRIATE TIME TO CHANGE IT. PT RECONNECTED TO 125mmHg LOW CONTINUOUS. WILL MONITOR.
--- NOTE | 2019-08-11 07:31 | NUR ---
Patient updated clinicals and PT/OT evals faxed to [facility] for review. Still waiting for acceptance. Requires precert
[2019-08-11 08:00] VITALS: BP 122/58
--- NOTE | 2019-08-11 08:20 | NUR ---
PT COMPLAINS OF LEFT ANKLE PAIN AT THIS TIME. RATES PAIN AT A [address] ARGUELLO NOTIFIED. ANIKA HARVEY ADMINSTERED. WILL MONITOR FOR EFFECTIVENESS.
--- NOTE | 2019-08-11 09:15 | NUR ---
Offered am care assistance, to get out of bed into chair. Patient refused, states she doesn't feel well and won't get up. Maureen JESSICA
--- NOTE | 2019-08-11 10:30 | NUR ---
Blender / Cook in to see patient. No new needs or request at this time. When medically stable, accepted, and auth is received patient will be discharged to [facility]. meeting planner following.
--- NOTE | 2019-08-11 11:15 | NUR ---
PHYSICAL THERAPY Patient seen this am 1:1 for therapy visit and was supine in bed with continuos IV treatment upon therapist arrival. Patient identified by name / as OT assistant unit forester and several [employer] student nurses present for observation only this session. Patient reports no new c/o's at this time and transfers supine to sit EOB with MOD A x 2. Patient also presented with abdominal wound vac, tolerating static EOB sit x 30 minutes, SBA. Patient attempted sit to stand with use of st cane, MAX A x 2, however unable to complete secondary to c/o of L foot pain 01/29. Patient instructed to scoot 6-8 inches to L side for pre bed positioning, including visual therapist demonstration, however proceeded to report numerous excuses as to lengthly delay in active participation. Student nurses also offered MAX encouragement as patient had an episode of urinating / voiding EOB stating "oops" with partial facial grin. Patient now needed patient care and remained EOB under 3 [employer] student nurses direct Supervision. Will continue per POC as tolerated, total treatment time 32 minutes. Melvin Engle, SUPPLY TECH
--- NOTE | 2019-08-11 11:45 | NUR ---
Contacted [facility] facility regarding referral. They stated the person I need to speak to is busy at the moment. Took my name/number and will call back
[2019-08-11 12:00] VITALS: BP 129/71
--- NOTE | 2019-08-11 13:19 | NUR ---
OT NOTE PATIENT SEEN OT THIS DATE 40 MINUTES. PATIENT IDENTIFIED BY NAME AND DATE OF . PATIENT RELUCTANT TO COMPLETE THERAPY THIS DATE WITH EDUCATION REQUIRED AND POOR CARRYOVER. PATIENT REPORTS 8/10 ABDOMINAL PAIN THIS DATE. PATIENT COMPLETED SUPINE TO SIT EOB MOD A X 2. COMPLETED GROOMING SEATED EOB COMB HAIR DEPENDENT WITH PATIENT INSTRUCTED IN SEQUENCING TASK WITH PATIENT REFUSING TO USE ARMS TO REACH TO COMB HAIR AND STATING "YOU DO IT." PATIENT DEMONSTRATED GOOD SIT TOLERANCE EOB. PATIENT DEMONSTRATED INCONTINENCE/ URINATING SEATED EOB ONTO FLOOR. ATTEMPTED STAND PIVOT TRANSFER BED TO RECLINER WITH PATIENT REPORTING SEVERE PAIN IN LEFT FOOT AND VERBALIZING THAT SHE CAN'T AND RELUCTANT TO ATTEMPT. STUDENT NURSES PRESENT THIS DATE. PATIENT EDUCATED TO SCOOT SELF TO HEAD OF BED FOR INCREASE POSTURE/BODY ALIGNMENT IN BED WITH PATIENT STATING "I'M GOING TO STAND" AND REFUSED PHYSICAL ASSISTANCE TO ATTEMPT STANDING. AFTER INCREASE TIME AND EDUCATION, PATIENT COMPLETED SIT TO STAND X 1 FROM BED CGA WITH POOR STAND TOLERANCE SHIFTING WEIGHT SLIGHTLY TO HEAD OF BED USE CANE AND RAIL FOR SUPPORT. PATIENT COMPLETED SIT TO SUPINE CGA AND REQUIRED DEPENDENT ASSIST X 3 STUDENT NURSES TO SCOOT TO EDGE OF BED. PATIENT IN CARE OF NURSING END OF SESSION. CONTINUE TOWARDS PLAN FO CARE. NORMAN BURKS
--- NOTE | 2019-08-11 13:57 | NUR ---
SPOKE TO PT'S DAUGHTER. SHE STATES PT NEEDS XANAX TO BE SCHEDULED AND NOT PRN. ATTEMPTED TO CONTACT DR. ARGUELLO, WITH NO RESPONSE.
--- NOTE | 2019-08-11 14:26 | NUR ---
[facility] called and stated they are unable to accept this patient, they have no female beds available at this time.
--- NOTE | 2019-08-11 14:43 | NUR ---
No Experience in to see patient. [facility] She states she is ok with going home with the wound vac. Discussed with Dr. Vela regarding [facility] wound vac form that will need to be completed for home use. He states he will not be back at the hospital until Thursday. Discussed with senior production planner and she is going to send a referral to [place].
--- NOTE | 2019-08-11 15:25 | NUR ---
Attemtped to contact [facility] to see if they are in network with Pramod valdez. Unable to contact. Faxed referral. Waiting on return call.
[2019-08-11 16:00] VITALS: BP 122/57
--- NOTE | 2019-08-11 16:00 | NUR ---
NORCO GIVEN FOR PAIN TO LEFT FOOT RATED 8/10 ACHING, DULL, SHARP, CONSTANT. CALL LIGHT WITHIN REACH. BED ALARM ON. WOUND VAC IN PLACE.
--- NOTE | 2019-08-11 16:41 | NUR ---
PER PT, PAIN STILL RATED 8/10 FOLLOWING NORCO FOR LEFT ANKLE PAIN. SLEEPING BUT AROUSES EASILY. DENIES NEED FOR FURTHER MEDS. QUICK TO FALL BACK TO SLEEP. RESPERS EASY/REGULAR ON 2L NC. CALL LIGHT IN REACH. BED ALARM ON.
--- NOTE | 2019-08-11 18:00 | NUR ---
Pt medicated for anxiety as ordered/routine. Resp easy and regular. Skin warm and dry. No c/o anxiety @ this time. Watching the television, napping @ times. No acute distress noted.
[2019-08-11 20:00] VITALS: BP 109/62
[2019-08-12] VITALS: BP 115/67
--- NOTE | 2019-08-12 05:58 | NUR ---
NORCO ADMINISTERED FOR PT C/O 01/29 LEFT ANKLE PAIN. WILL CONTINUE TO MONITOR AND REASSESS.
--- NOTE | 2019-08-12 06:00 | NUR ---
DRESSING CHANGED TO LEFT MILLER WOUND.
[2019-08-12 06:40] LABS: BASO % 0.1 % (0.0-1.0); EOS # 0.2 10*3/uL (0.0-0.4); HEMATOCRIT 29.1 % (37.0-47.0); HEMOGLOBIN 9.3 g/dl (12.0-16.0); LYMPH # 1.8 10*3/uL (1.3-4.4); LYMPH % 23.7 % (27.0-41.0); MEAN CORPUSCULAR HGB 31.6 pg (27.0-31.0); MEAN PLATELET VOLUME 11.2 fl (9.6-12.3); MONO # 0.9 10*3/uL (0.1-1.0); MONO % 12.4 % (3.0-9.0); NEUT # 4.6 10*3/uL (2.3-7.9); PLATELET COUNT AUTOMATED 208 10*3/uL (130-400); RED BLOOD COUNT 2.94 10*6/uL (4.10-5.10); RED CELL DISTRI WIDTH 13.5 % (0-14.5); WHITE BLOOD COUNT 7.6 10*3/uL (4.8-10.8)
--- NOTE | 2019-08-12 07:00 | NUR ---
REPORT RECEIVED FROM QUENCHING MACHINE OPERATOR NURSE. PT SLEEPING AT THIS TIME. NO S/S OF DISTRESS. CALL LIGHT IN REACH
[2019-08-12 07:19] LABS: CREATININE 0.71 mg/dL (0.55-1.02)
--- NOTE | 2019-08-12 07:45 | NUR ---
PHYSICAL THERAPY CO-SIGN I approve of the Physical Therapy notes written above. Shelia Fofana PT
[2019-08-12 08:00] VITALS: BP 105/67
--- NOTE | 2019-08-12 08:16 | NUR ---
[facility] reviewed referral and stated they do not have a female bed or isolation bed at this time and they don't think they will have one until late next week. [facility] notified.
--- NOTE | 2019-08-12 08:26 | NUR ---
ORDERS RECEIVED FROM DOCTOR JOS. ORDERED TO HOLD LISINOPRIL THIS MORNING. WILL MONITOR BP
--- NOTE | 2019-08-12 08:45 | NUR ---
Spoke to Joshua thakkar [facility] regarding SNFs within patient's network. Facilities are [facility], [facility], [facility]. Notified regional planner. Discussed discharge planning with Dr. Booker regarding difficulty in finding SNF placement and Dr. Vela being out of town until Thursday for completion on the I wound vac form.
--- NOTE | 2019-08-12 09:04 | NUR ---
[facility] Waiting on review/acceptance.
--- NOTE | 2019-08-12 10:00 | NUR ---
PT SLEEPING AT THIS TIME.
--- NOTE | 2019-08-12 10:27 | NUR ---
OT NOTE Attempted to see pt this P.M. for OT session and upon arrival pt was supine in bed. Pt had reports of 8/10 L foot pain and 0/10 R foot pain. Pt was agreeable to therapy and was aprox 1/3 out of bed to sit EOB and then xray came in. Pt participated in xray lasting just a few minutes and then reported she could not do therapy after the xray was complete. Pt reported that she now had 8/10 R foot pain along with L foot pain and needed pain medicine. Pt declined any therapy at this time. Will check back at a later time/date and continue with POC as able. JOHN Spence/JOHN Caraballo/[place]
--- NOTE | 2019-08-12 10:30 | NUR ---
PHYSICAL THERAPY PT SUPINE IN BED UPON ARRIVAL THIS A.M. PT AGREED TO TRY AND SIT EOB. THEN X-RAY CAME AND ASKED TO DO AN X-RAY OF PTS FOOT AND TO AGREED. PT THEN AFTER X-RAY STATED SHE WANTED PAIN MEDS AND THEN REFUSED TO DO ANY THERAPY. THERAPY WILL TRY AGAIN AT ANOTHER TIME/DATE. BART HEREDIA PTA
[2019-08-12 10:50] LABS: BUN 6 mg/dl (7-24); CHLORIDE 108 mmol/L (98-107); CREATININE 0.72 mg/dL (0.55-1.02); SODIUM 142 mmol/L (136-145)
[2019-08-12 12:00] VITALS: BP 110/64
--- NOTE | 2019-08-12 12:23 | NUR ---
IN TO CHECK BEDSIDE GLUCOSE. PT SLEEPING. AROUSES EASILY. NO COMPLAINTS VOICED. CALL LIGHT IN REACH
--- NOTE | 2019-08-12 12:24 | NUR ---
[facility] called stating they are unable to accept this patient saying they are out of network with insurance.
--- NOTE | 2019-08-12 12:30 | NUR ---
Contacted Shelby from [facility] to ask if they had a female/isolation room available. She stated she is not at work today but to go ahead and fax referral and she will let the facility know to review it. She said someone will get back to me. Referral faxed.
--- NOTE | 2019-08-12 13:00 | NUR ---
IN TO SEE PT. PT SLEEPING AT THIS TIME. AROUSES EASILY.
--- NOTE | 2019-08-12 13:00 | NUR ---
PT MEDICATED WITH NORCO PER ORDER. SEE MAR
--- NOTE | 2019-08-12 14:21 | NUR ---
Patient was accepted to [facility]; will fax updates on Thursday to start precert.
--- NOTE | 2019-08-12 14:27 | NUR ---
Hard Tile Setter Apprentice in to see patient. Daughter, Trini, is at her bedside. Discussed short term SNF at [place] and both are agreeable. Trini stated she can transport her mom anytime to [place] but not Thursday or Thursday. She will be in [place] with her on those 2 days. train planner notified.
--- NOTE | 2019-08-12 15:00 | NUR ---
IN TO SEE PATIENT. PT APPEARS TO BE SLEEPING AT THIS TIME. CALL LIGHT IN REACH
--- NOTE | 2019-08-12 15:00 | NUR ---
NORCO APPEARS EFFECTIVE PT SLEEPING
--- NOTE | 2019-08-12 15:46 | NUR ---
OCCUPATIONAL THERAPY CO-SIGN I approve of the Occupational Therapy notes written above. ADDIS LALA OTR/[place]
[2019-08-12 16:00] VITALS: BP 111/53
--- NOTE | 2019-08-12 16:00 | NUR ---
ENCOURAGED PT TO SIT IN CHAIR AT THIS TIME. PT REFUSED.
--- NOTE | 2019-08-12 17:45 | NUR ---
PT REFUSING TO GET OUT OF BED AND SIT IN CHAIR PER DR. ARGUELLO REQUEST. PT STATES "IM VERY TIRED, IM GOING TO SLEEP"
[2019-08-12 20:00] VITALS: BP 93/57
[2019-08-13] VITALS: BP 90/44
--- NOTE | 2019-08-13 06:05 | NUR ---
PATIENT INCONTINENT OF URINE, CHANGED AND BATHED AT THIS TIME. PO MEDS TAKEN WITH A SIP OF WATER. PATIENT DEMANDING VICODIN FOR RT FOOT PAIN. EDUCATED THE NEED FOR HER TO GET OOB. PATIENT DEMANDS WARM BLANKET AND VICODIN.
[2019-08-13 08:00] VITALS: BP 104/48
--- NOTE | 2019-08-13 09:10 | NUR ---
NORCO GIVEN FOR C/O LEFT FOOT PAIN. NO REDNESS NOTED. SWELLING VS OBESITY. PAIN RATED 10/10. CALL LIGHT IN REACH.
--- NOTE | 2019-08-13 10:01 | NUR ---
PER PT, NORCO WAS EFFECTIVE.
[2019-08-13 12:00] VITALS: BP 95/57
--- NOTE | 2019-08-13 12:36 | NUR ---
PHYSICAL THERAPY Patient supine in bed at time of arrival. Patient reports pain in (L) ankle 01/29 this date-- discussed with nursing. MANAGER LANDSCAPE provided max encouragement for patient to get OOB and/or sit on side of bed throughout the day. Patient expresses too much pain this date to complete. Patient was agreeable to perform supine B LE ther-ex. MANAGER LANDSCAPE educated patient on need to complete mobility/ROM while laying in bed. Supine B LE ther-ex, AROM: heel slides, quad set (with 5 sec holds) SLR, hip ABD/ADD, ankle PF/DF, glute sets x10 reps. Patient provided cues for technique, pacing and improved ROM. Intermittent rest breaks provided. Patient exhibits ability to scoot to HOB independently, with use of (B) bed rails and bridging method. Patient supine in bed with call light within reach. Patient B LE propped up on pillow for comfort and to decrease pain (per patient request). Patient voiced no new complaints or concerns. Patient pain remaining the same at session end. Yuli Durand PTA
[2019-08-13 16:00] VITALS: BP 114/57
--- NOTE | 2019-08-13 16:06 | NUR ---
WES REQUESTED AGAIN FOR LEFT FOOT PAIN RATED 10/10 AND WORSENS WITH MOVEMENT OR TOUCH. CALL LIGHT IN REACH. SEE AUG. WES GIVEN.
--- NOTE | 2019-08-13 17:00 | NUR ---
SLEEPING, NORCO SEEMS EFFECTIVE FOR EARLIER COMPLAINTS. RESPIRATIONS UNLABORED AND EASY ON ROOM AIR. CALL LIGHT IN REACH.
--- NOTE | 2019-08-13 19:58 | NUR ---
PATIENT IS AAOX3 RESTING IN BED WITH EASY AND REGULAR RESPERS ON ROOM AIR. VITAL SIGNS OBTAINED AND ASSESSMENT IS COMPLETE WITH NO S/S OF DISTRESS NOTED. PATIENT C/O LEFT ANKLE/FOOT PAIN RATING A 5/10. BED IS LOW, LOCKED, ALARMED, AND CALL LIGHT IS WITHIN REACH. WHITEBOARD UPDATED. WILL CONTINUE TO MONITOR, SEE SHIFT ASSESSMENT.
[2019-08-13 20:00] VITALS: BP 92/56
--- NOTE | 2019-08-13 20:11 | NUR ---
PRN NORCO GIVEN FOR LEFT FOOT PAIN. CALL LIGHT IS WITHIN REACH, WILL MONITOR EFFECT.
--- NOTE | 2019-08-13 20:13 | NUR ---
PRN NORCO GIVEN ORDERED, CALL LIGHT IS WITHIN REACH WILL MONITOR EFFECT.
--- NOTE | 2019-08-13 22:16 | NUR ---
PRN NORCO EFFECTIVE PER PATIENT. PRN XANAX GIVEN FOR C/O ANXIETY. CALL LIGHT IS WITHIN REACH, WILL MONITOR EFFECT.
--- NOTE | 2019-08-13 23:30 | NUR ---
PRN XANAX EFFECTIVE, PATIENT SLEEPING WITH EASY AND REGULAR RESPERS ON ROOM AIR. CALL LIGHT IS WITHIN REACH.
[2019-08-14] VITALS: BP 97/46
--- NOTE | 2019-08-14 03:22 | NUR ---
CHART CHECK COMPLETE.
--- NOTE | 2019-08-14 04:00 | NUR ---
PATIENT ASSISTED TO BEDPAN. WHOLE BED LINENS CHANGED. PATIENT C/O PAIN TO LEFT FOOT. PRN NORCO GIVEN. CALL LIGHT IS WITHIN REACH, WILL MONITOR EFFECT.
--- NOTE | 2019-08-14 05:00 | NUR ---
PRN MEDICATION EFFECTIVE. CALL LIGHT IS WITHIN REACH.
--- NOTE | 2019-08-14 10:10 | NUR ---
XANAX AND NORCO GIVEN AT THIS TIME FOR C/O ANXIETY AND LEFT FOOT PAIN OF 8/10. WILL CONT TO MONITOR. CALL LIGHT IN REACH.
--- NOTE | 2019-08-14 11:10 | NUR ---
WES AND YENI EFF. WILL CONT TO MONITOR. CALL LIGHT IN REACH.
[2019-08-14 12:00] VITALS: BP 90/63
[2019-08-14 16:00] VITALS: BP 97/45
--- NOTE | 2019-08-14 19:53 | NUR ---
DR. MARKS CONTACTED FOR VANC TROUGH LEVEL OF 20.5, NO NEW ORDERS RECIEVED AT THIS TIME.
[2019-08-14 20:00] VITALS: BP 94/57
[2019-08-15 06:57] LABS: BUN 7 mg/dl (7-24); CHLORIDE 107 mmol/L (98-107); CREATININE 0.76 mg/dL (0.55-1.02); SODIUM 145 mmol/L (136-145)
--- NOTE | 2019-08-15 08:00 | NUR ---
PHYSICAL THERAPY Patient seen this am 1;1 for therapy visit and was supine in bed upon therapist arrival. Patient identified by name / and and reports 8/10 L ankle pain. Patient presented with abdominal wound vac and was joined by OT dental assistant instructor for observation only this session. Patient transfers supine to sit EOB with MIN A, tolerating several minutes static EOB sit, CGA to collect herself. Patient performed sit to stand transfer, MIN A, with use of wh walker standing support, then completed SPT to BSC, CGA, needing several v/c's to complete safely secondary to incresaed difficulty turning walker during pivot phase of transfer. Patient returned to supine in bed with MIN A for all transfers and v/c for proper hanc placement off BSC. Patient reported no change in L ankle pain 8/10 and remained in bed with call light, tray table, telephone and bed alarm. Will continue per POC as tolerated , total treatment time 14 minutes. Melvin Engle, LEAD FORMER
--- NOTE | 2019-08-15 08:07 | NUR ---
OT NOTE Pt was seen this A.M. 1:1 for 15 minute OT session. Upon arrival pt was supine in bed. Pt identified by name and and had complaints of 8/10 L ankle pain. Pt presented to therapy with wound vac in place which stayed in place throughout the entire session. Pt transferred supine to sit EOB with Zohra for assist with UB. Challenged pt's dynamic sitting balance needed for increased I and enhanced safety in self care tasks. While weight shifting, crossing midline, and reaching over all planes pt was able to maintain G- sitting balance. Pt completed sit to stand from bed level with Zohra X 2 and use of w/w for UE support. Standing pivot completed EOB <> bedside commode with Zohra and use of w/w. Pt transferred off bedside commode with Zohra. Pt then transferred back into bed sit to supine with Zohra. There she was left with call light in hand, tray table in place, and bed alarm activated for safety. Pt's resting pain was 8/10 in her L ankle. Continue with POC as able. JOHN Spence/[place]
--- NOTE | 2019-08-15 08:31 | NUR ---
UPdated clincals and therapy notes faxed to [facility] to start precert. Waiting for auth
--- NOTE | 2019-08-15 09:00 | NUR ---
Hardboard Grinder in to see patient. No new needs or request at this time. Awaiting [facility] for [place]. Discussed with Dr. Booker and discussed with patient's daughter, Trini. shoe lay out planner following.
--- NOTE | 2019-08-15 10:30 | NUR ---
TOREY BRIGGS [id number] Please refer to the physician's history and physical for past medical history, comorbid conditions, and allergies. Diagnosis: UTI PARANOID BEHAVIOR CELLULITIS GASTROENTERITIS Chris Score: 15,AT RISK WOUND DESCRIPTIONS: Wound vac alarming at time of assessment. Dressing intact to left lower abodminal patient was turned onto tubing and tubing was kinked at time of assessment. Tubing adjustment made and wound vac functioning at 125mmHg low continuous. Surface the patient is resting on: Isoflex SKIN PREVENTION RECOMMENDATION: 1. Pressure redistribution support surface as appropriate 2. Elevate heels 3. Remove boots/TEDS every shift and reapply 4. Head of bed 30 degrees as tolerated 5. Assess nutrition and hydration 6. Manage moisture 7. Avoid the use of containment devices while in bed 8. Use absorptive products on surfaces limit layers of linens on bed 9. Turn and reposition every 1-2 hours in bed and every 1 hour in chair as tolerated 10. Weight shifts every 15 minutes while up in chair 11. Offloading with pillows or device to keep heels elevated off bed 12. Monitor skin at least every shift 13. Inspect under medical devices twice a day WOUND TREATMENT RECOMMENDATIONS: Continue current wound vac orders per provider.
--- NOTE | 2019-08-15 11:30 | NUR ---
Contacted because everytime we move patient for patient care her heart rhythm of 4 sets of couplets, in and out of bigemimy and 3 PV's. No new orders physician to follow up at bedside.
--- NOTE | 2019-08-15 11:51 | NUR ---
Left a message with 's answering service regarding consult.
[2019-08-15 12:00] VITALS: BP 116/62
--- NOTE | 2019-08-15 14:05 | NUR ---
Patient updates requested were faxed. Patient has received auth and is ok to go tomorrow once the wound vac arrives. Dr. Booker notified.
--- NOTE | 2019-08-15 15:12 | NUR ---
Spoke to patient and daughter who is at the bedside regarding discharge tomorrow to [facility]. Daughter states she will not be able to transport her and her is in [place]. program planner notified.
[2019-08-15 16:00] VITALS: BP 107/42
--- NOTE | 2019-08-15 16:45 | NUR ---
Dr. Deal called and questioned why the Vancomyocin was discontinued. She ordered a random trough. If results were WNL, Vanc was to be ordered and pharmacist to review.
[2019-08-15 20:00] VITALS: BP 100/49
--- NOTE | 2019-08-15 20:12 | NUR ---
PATIENT IS AAOX3 RESTING IN BED WITH EASY AND REGULAR RESPERS ON ROOM AIR. ASSESSMENT IS COMPLETE WITH NO S/S OF DISTRESS NOTED PATIENT C/O LEFT ANKLE/FOOT PAIN RATING A 5/10. BED IS LOW, LOCKED, ALARMED, AND CALL LIGHT IS WITHIN REACH. WHITEBOARD UPDATED. WILL CONTINUE TO MONITOR, SEE SHIFT ASSESSMENT.
--- NOTE | 2019-08-15 21:13 | NUR ---
PRN XANAX, NORCO AND TORADOL GIVEN FOR ANXIETY AND LEFT FOOT PAIN. WILL MONITOR. CALL LIGHT IS WITHIN REACH.
--- NOTE | 2019-08-15 22:00 | NUR ---
PATIENT DOES NOT WANT AWAKENED FOR 0000 VITALS IF SLEEPING.
--- NOTE | 2019-08-15 22:30 | NUR ---
PRN MEDICATIONS EFFECTIVE. SLEEPING WITH EASY AND REGULAR RESPERS ON ROOM AIR. CALL LIGHT IS WITHIN REACH.
--- NOTE | 2019-08-15 23:33 | NUR ---
PATIENT SLEEPING WITH EASY AND REGULAR RESPERS ON ROOM AIR. CALL LIGHT IS WITHIN REACH.
--- NOTE | 2019-08-16 03:44 | NUR ---
24 HR chart check completed.
--- NOTE | 2019-08-16 03:50 | NUR ---
SLEEPING WITH EASY AND REGULAR RESPERS ON ROOM AIR. CALL LIGHT IS WITHIN REACH.
--- NOTE | 2019-08-16 05:35 | NUR ---
PRN NORCO GIVEN FOR C/O LEFT FOOT PAIN. WOUND VAC CHANGED AT THIS TIME. CALL LIGHT IS WITHIN REACH. WILL MONITOR EFFECT.
[2019-08-16 07:22] LABS: BASO % 0.4 % (0.0-1.0); EOS # 0.4 10*3/uL (0.0-0.4); EOS % 7.2 % (1.0-4.0); HEMATOCRIT 28.2 % (37.0-47.0); HEMOGLOBIN 8.9 g/dl (12.0-16.0); LYMPH # 1.9 10*3/uL (1.3-4.4); LYMPH % 38.5 % (27.0-41.0); MEAN CORPUSCULAR HGB 31.6 pg (27.0-31.0); MEAN CORPUSCULAR HGB CONC 31.6 g/dl (33.0-37.0); MONO # 0.5 10*3/uL (0.1-1.0); MONO % 10.8 % (3.0-9.0); NEUT # 2.1 10*3/uL (2.3-7.9); NEUT % 42.7 % (47.0-73.0); PLATELET COUNT AUTOMATED 221 10*3/uL (130-400); RED BLOOD COUNT 2.82 10*6/uL (4.10-5.10); RED CELL DISTRI WIDTH 13.8 % (0-14.5)
[2019-08-16 07:41] LABS: BUN 10 mg/dl (7-24); CHLORIDE 109 mmol/L (98-107); CREATININE 0.93 mg/dL (0.55-1.02); POTASSIUM 3.5 mmol/L (3.5-5.1); SODIUM 144 mmol/L (136-145)
[2019-08-16 08:05] VITALS: BP 114/72
[2019-08-16] MEDS ORDERED: FUROSEMIDE20 M1 PO (08:31)
--- NOTE | 2019-08-16 09:34 | NUR ---
PHYSICAL THERAPY TREATMENT TIME: 08:10 AM - 08:30 AM 20 MINUTES TOTAL Patient preseented to therapy in supine with head of bed elevated slightly. Patient gives informed consent for treatment. Patient was identified by name and on wristband. Patient performed supine to sitting transfer to EOB with CGA. Patient sat on EOB with SBA. Patient completed sit to stand from EOB with CGA. Patient completed standing tolerance x 2 for [address] attempt and 45 seconds the 2nd attempt with CGA. Patient then performed x 5 sit to stands from EOB with CGA- SBA. Patient became fatigued and needed top lie back down. Patient transferreed sitting to supine in bed with SBA-CGA. Patient Patient was able ot scoot herself up in bed with SBA. Patient was left in supine in bed with head of bed elevated. call light within reach and bed alarm activated. Patient was 1:1 with this MICROSOFT WINDOWS ENGINEER for 20 minutes total. ELIZABETH VARGHESE MICROSOFT WINDOWS ENGINEER
--- NOTE | 2019-08-16 09:40 | NUR ---
Pt was seen x 15 minutes for OT beginning with supine to sit at EOB with CGA. Educated pt with sock aid followed by donning socks with Mod A for left foot & Min A with right foot. Sit to stand exercises near bed x 8 episodes for endurance activity with CGA for safety due to history of fall. Pt was somewhat hesitant at first but agreed to OT with lengthy rest periods between tasks. Sit to supine was CGA. Continue with OT POC. Call light with reach. Flaca SHANKS/[place]
--- NOTE | 2019-08-16 10:39 | NUR ---
Patient is discharged to [facility]. [place] stated they are sending an ambulette with a wheel chair to transport her at 3PM. Contacted nurse and notified. also told her the daughter is busy today in [place] and will not be notifying her, the patient can send daughter a text message.
--- NOTE | 2019-08-16 11:23 | NUR ---
Nurse to nurse report given to Liana thakkar [place].
[2019-08-16 12:00] VITALS: BP 96/58
--- NOTE | 2019-08-16 12:21 | NUR ---
Patients daughter called for update on current health status. Let her know that cardiology was in to see her and she will be picked up at 1500 by Arlene Rojo.
--- NOTE | 2019-08-16 13:00 | NUR ---
PICC LINE WAS REMOVED. CATH INTACT. NO REDNESS OR BLEEDING AT SITE. PATIENT TOLERATED WELL. SITE WAS DRESSING WITH GAUZE DRESSING AND OPT SITE.
--- NOTE | 2019-08-16 15:15 | NUR ---
Wound vac was removed from abd. Nursing surface ship usw supervisor notified, she is to come to 4E and draft roller picker. Site was clean, dry, no drainage. Wet to dry dressing applied.
--- NOTE | 2019-08-16 15:50 | NUR ---
Discharge instructions reviewed with patient/family. Patient receptive and verbalizes understanding. Follow-up care arranged. Written instructions given to patient/family. Patient was wheeled from unit by [place] staff member. All personal belongings were taken down by steward/stewardess lounge. Patient was educated on new prescriptions, wound vac changes and follow up visit with JUDY Singh
--- NOTE | 2019-08-17 07:30 | NUR ---
OCCUPATIONAL THERAPY CO-SIGN I approve of the Occupational Therapy notes written above. ASHISH CUEVA, OTR/L
--- NOTE | 2019-08-17 07:51 | NUR ---
PHYSICAL THERAPY CO-SIGN I approve of the Physical Therapy notes written above. Shelia Fofana PT
== END 2019-08-16 16:03 | disposition other institution (70) | DRG 853 ==
LOC: ED 21:36 → 4E 08-07 03:11 → EDHOLD 08-07 03:11 → 4E 08-07 03:22
PROVIDERS: Emergency Medicine Emergency Medical Services; Internal Medicine; ADMIT Internal Medicine
DX: A41.9 Sepsis, unspecified organism (principal); N17.0 Acute kidney failure with tubular necrosis; L02.211 Cutaneous abscess of abdominal wall; N39.0 Urinary tract infection, site not specified; Z68.43 Body mass index [BMI] 50.0-59.9, adult; Z16.21 Resistance to vancomycin; L03.311 Cellulitis of abdominal wall; G89.29 Other chronic pain; F41.1 Generalized anxiety disorder; M54.5 Low back pain; I10 Essential (primary) hypertension; E11.9 Type 2 diabetes mellitus without complications; K52.9 Noninfective gastroenteritis and colitis, unspecified; E87.6 Hypokalemia; B95.62 Methicillin resistant Staphylococcus aureus infection as the cause of diseases classified elsewhere; R62.7 Adult failure to thrive; E66.01 Morbid (severe) obesity due to excess calories; M79.672 Pain in left foot; I49.9 Cardiac arrhythmia, unspecified; Z79.899 Other long term (current) drug therapy

== ENCOUNTER 2019-12-25 15:44 | Inpatient (IN) | payer MEDICARE ==
[~2019-12-25] VITALS: Ht 170.1 cm; Wt 158.8 kg
[~2019-12-25 15:44] MED LIST changes: +DOXYCYCLINE100 MG PO; +FUROSEMIDE20 M1 PO; +SERTRALINE HYD100 MG PO
[2019-12-25 15:45] VITALS: BP 124/44
[2019-12-25 16:54] LABS: ALBUMIN 3.5 gm/dl (3.1-4.5); ALKALINE PHOSPHATASE 109 U/L (45-117); BUN 17 mg/dl (7-24); CHLORIDE 108 mmol/L (98-107); CREATININE 1.19 mg/dL (0.55-1.02); POTASSIUM 4.4 mmol/L (3.5-5.1); SGOT/AST 23 IU/L (3-35); SGPT/ALT 21 U/L (12-78); SODIUM 138 mmol/L (136-145)
[2019-12-25 17:00] VITALS: BP 112/72
[2019-12-25 17:13] LABS: TROPONIN I < 0.015 ng/ml (<0.045)
[2019-12-25 17:44] LABS: BASO % 0.1 % (0.0-1.0); HEMATOCRIT 36.1 % (37.0-47.0); LYMPH # 1.5 10*3/uL (1.3-4.4); LYMPH % 13.6 % (27.0-41.0); MEAN CELL VOLUME 97.8 fl (81.0-99.0); MEAN CORPUSCULAR HGB 31.7 pg (27.0-31.0); MEAN CORPUSCULAR HGB CONC 32.4 g/dl (33.0-37.0); MEAN PLATELET VOLUME 10.8 fl (9.6-12.3); MONO # 0.8 10*3/uL (0.1-1.0); NEUT # 8.7 10*3/uL (2.3-7.9); NEUT % 79.1 % (47.0-73.0); PLATELET COUNT AUTOMATED 167 10*3/uL (130-400); RED BLOOD COUNT 3.69 10*6/uL (4.10-5.10); RED CELL DISTRI WIDTH 12.9 % (0-14.5)
[2019-12-25 17:55] LABS: BACTERIA 1+; BILIRUBIN NEGATIVE (NEGATIVE); BLOOD NEGATIVE (NEGATIVE); CLARITY CLEAR (CLEAR); COLOR YELLOW (YELLOW); EPITHELIAL CELLS 41-50; GLUCOSE NEGATIVE (NEGATIVE); KETONE NEGATIVE (NEGATIVE); LEUKO ESTERASE TRACE (NEGATIVE); NITRITE NEGATIVE (NEGATIVE); UROBILINOGEN 0.2 E.U./dl (0.2-1.0)
[2019-12-25 18:09] VITALS: BP 125/46
--- NOTE | 2019-12-25 18:25 | NUR ---
A 59, admitted to [facility], under the services of MARCOS Suarez MD with a diagnosis of HYPOGLYCEMIA. Chief complaint is BLOOD SUGAR 56. Patient arrived via ambulance from ER. Monitor applied. Initial assessment completed. Vital signs taken and recorded. MARCOS SUAREZ MD notified of admission to the unit. Orders received. See assessment for past medical history, medications and allergies. Patient and/or family oriented to unit. [facility] visitation policy reviewed. Clothing/patient valuable form completed. SEVERINO KIM
[2019-12-25] MEDS ORDERED: OXYBUTYNIN5 MG PO (18:58)
[2019-12-25] MEDS ORDERED: LASIX20 MG PO (19:14)
--- NOTE | 2019-12-25 19:18 | NUR ---
MESSAGE LEFT ON DR. ARGUELLO'S CELL PHONE FOR ADMISSION ORDERS.
[2019-12-25] MEDS ORDERED: ATARAX,VISTARIL10 MG PO (19:27)
[2019-12-25 20:00] VITALS: BP 90/45
--- NOTE | 2019-12-25 20:23 | NUR ---
Patient requested a pain pill for her chronic back pain. [place] given, will monitor and reassess.
--- NOTE | 2019-12-25 23:10 | NUR ---
Patient given dextrose for a blood sugar of 53.
[2019-12-26] VITALS: BP 106/53
--- NOTE | 2019-12-26 | NUR ---
Patient stated the norco is effective for a short time.
--- NOTE | 2019-12-26 03:52 | NUR ---
Patient given a half of amp of dextrose for a blood sugar of 66.
[2019-12-26 04:03] VITALS: BP 101/59
[2019-12-26 05:41] LABS: BUN 13 mg/dl (7-24); CHLORIDE 108 mmol/L (98-107); CREATININE 0.95 mg/dL (0.55-1.02); POTASSIUM 4.6 mmol/L (3.5-5.1); SODIUM 139 mmol/L (136-145)
[2019-12-26 06:11] LABS: BASO % 0.3 % (0.0-1.0); EOS # 0.4 10*3/uL (0.0-0.4); EOS % 5.2 % (1.0-4.0); HEMATOCRIT 34.7 % (37.0-47.0); LYMPH # 2.7 10*3/uL (1.3-4.4); LYMPH % 33.3 % (27.0-41.0); MEAN CELL VOLUME 97.2 fl (81.0-99.0); MEAN CORPUSCULAR HGB 31.1 pg (27.0-31.0); MEAN PLATELET VOLUME 11.1 fl (9.6-12.3); MONO # 0.6 10*3/uL (0.1-1.0); MONO % 7.2 % (3.0-9.0); NEUT # 4.3 10*3/uL (2.3-7.9); NEUT % 53.9 % (47.0-73.0); PLATELET COUNT AUTOMATED 167 10*3/uL (130-400); RED BLOOD COUNT 3.57 10*6/uL (4.10-5.10); RED CELL DISTRI WIDTH 13.2 % (0-14.5)
[2019-12-26 08:00] VITALS: BP 113/69
--- NOTE | 2019-12-26 09:00 | NUR ---
Senior Supply Chain Analyst in to see patient. She is currently not in her room. Will follow up at a later time.
[2019-12-26 12:00] VITALS: BP 109/50
--- NOTE | 2019-12-26 13:00 | NUR ---
Ladies Attendant in to talk to patient. Patient states lives at home with her daughter staying with her through the week and then she stays at her daughter's house on the weekends. There are 0 steps in the home. Physician: Dr. Julieta Booker Pharmacy: [facility] [place] health services: none Patient's level of ADLs: MINIMAL ASSIST Patient has working utilities: yes DME: cane Follow-up physician's appointment after d/c: she prefers to make her own follow up appt after discharge Does patient want to access PORTAL?: no Discharge plan discussed with patient and daughter who is at the patient's bedside. She lives at home. Her daughter stays with her at her house during the week. Her daughter does her shopping, cleaning, and laundry. She states she stays at her daughter's house on the weekends. She needs minimal assistance with her ADLs and ambulates with a cane. Discussed short term SNF and home health care services and she denies a need for either at this time. agreeable. When medically stable she will be discharged to home. She states her daughter will provide transportation on discharge. DC WOODARD
[2019-12-26 16:00] VITALS: BP 107/44
[2019-12-26 20:00] VITALS: BP 118/78
--- NOTE | 2019-12-26 23:54 | NUR ---
PATIENT REQUESTING [facility] FOR BACK PAIN. RATES 11/29. WILL CHECK EFFECTIVENESS
[2019-12-27] VITALS: BP 111/55
--- NOTE | 2019-12-27 00:45 | NUR ---
PATIENT SLEEPING, [facility]CO EFFECTIVE.
[2019-12-27 08:00] VITALS: BP 114/62
--- NOTE | 2019-12-27 08:34 | NUR ---
PT RESTING IN BED/ NO DISTRESS NOTED. WILL MONITOR
--- NOTE | 2019-12-27 11:21 | NUR ---
Discharge instructions reviewed with patient/family. Patient receptive and verbalizes understanding. Follow-up care arranged. Written instructions given to patient/family. FRANCOIS MAKI
== END 2019-12-27 11:21 | disposition home or self-care (01) | DRG 638 ==
LOC: ED 15:44 → EDHOLD 17:22 → ICCU 17:22 → 4E 17:22 → ICCU 17:35 → 4E 12-26 15:13
PROVIDERS: Physician Assistant; ADMIT Internal Medicine
DX: E11.649 Type 2 diabetes mellitus with hypoglycemia without coma (principal); F32.1 Major depressive disorder, single episode, moderate; Z68.43 Body mass index [BMI] 50.0-59.9, adult; N17.0 Acute kidney failure with tubular necrosis; M54.5 Low back pain; I12.9 Hypertensive chronic kidney disease with stage 1 through stage 4 chronic kidney disease, or unspecified chronic kidney disease; N18.3 Chronic kidney disease, stage 3 (moderate); R62.7 Adult failure to thrive; F41.1 Generalized anxiety disorder

== ENCOUNTER 2020-03-29 13:46 | Emergency (ER) | payer OTHER ==
[~2020-03-29 13:46] MED LIST changes: +ATARAX,VISTARIL10 MG PO; +OXYBUTYNIN5 MG PO; +SEPTDS PO
[2020-03-29 14:00] VITALS: BP 126/66
[2020-03-29 17:55] LABS: HEMATOCRIT 36.3 % (37.0-47.0); MEAN CORPUSCULAR HGB 31.2 pg (27.0-31.0); MEAN CORPUSCULAR HGB CONC 32.5 g/dl (33.0-37.0); MEAN PLATELET VOLUME 10.4 fl (9.6-12.3); PLATELET COUNT AUTOMATED 275 10*3/uL (130-400); RED BLOOD COUNT 3.78 10*6/uL (4.10-5.10); RED CELL DISTRI WIDTH 13.4 % (0-14.5); WHITE BLOOD COUNT 10.5 10*3/uL (4.8-10.8)
[2020-03-29 18:09] LABS: ALBUMIN 3.1 gm/dl (3.1-4.5); ALKALINE PHOSPHATASE 160 U/L (45-117); BUN 7 mg/dl (7-24); CHLORIDE 108 mmol/L (98-107); CREATININE 0.68 mg/dL (0.55-1.02); LIPASE 764 U/L (73-393); POTASSIUM 3.4 mmol/L (3.5-5.1); SGOT/AST 177 IU/L (3-35); SGPT/ALT 50 U/L (12-78); SODIUM 139 mmol/L (136-145); TOTAL PROTEIN 7.3 gm/dL (6.4-8.2)
[2020-03-29 18:12] LABS: TOTAL CELLS COUNTED 100 #CELLS
[2020-03-29 18:13] LABS: PLATELET SUFFICIENCY NORMAL (NORMAL)
[2020-03-29] MEDS ORDERED: FLAGYL500 MG PO (20:28)
== END 2020-03-29 20:45 | disposition home or self-care (01) ==
LOC: ED 13:46
PROVIDERS: Emergency Medicine
DX: K85.90 Acute pancreatitis without necrosis or infection, unspecified (principal); F32.9 Major depressive disorder, single episode, unspecified; E11.9 Type 2 diabetes mellitus without complications; I10 Essential (primary) hypertension; Z79.899 Other long term (current) drug therapy; Z79.2 Long term (current) use of antibiotics

== ENCOUNTER → 2020-07-10 | Outpatient (CLI) | payer OTHER ==
[~2020-07-10] MED LIST changes: +EFFER-K20 MEQ PO; +FLAGYL500 MG PO; +SIMVASTATIN40 MG PO
== END | disposition home or self-care (01) ==
LOC: MAMMO 15:31
PROVIDERS: ATTEND Internal Medicine
DX: Z12.31 Encounter for screening mammogram for malignant neoplasm of breast (principal); N64.89 Other specified disorders of breast

== ENCOUNTER 2020-08-01 14:05 | Observation (INO) | payer OTHER ==
[~2020-08-01] VITALS: Ht 170.1 cm; Wt 158.8 kg
[~2020-08-01 14:05] MED LIST changes: -EFFER-K20 MEQ PO; -SIMVASTATIN40 MG PO
[2020-08-01 14:18] VITALS: BP 140/71
[2020-08-01 14:41] LABS: BASO % 0.3 % (0.0-1.0); EOS % 0.1 % (1.0-4.0); HEMATOCRIT 39.9 % (37.0-47.0); LYMPH # 1.8 10*3/uL (1.3-4.4); MEAN CORPUSCULAR HGB 31.2 pg (27.0-31.0); MEAN CORPUSCULAR HGB CONC 31.8 g/dl (33.0-37.0); MEAN PLATELET VOLUME 11.9 fl (9.6-12.3); MONO # 0.5 10*3/uL (0.1-1.0); MONO % 6.5 % (3.0-9.0); NEUT # 5.2 10*3/uL (2.3-7.9); PLATELET COUNT AUTOMATED 189 10*3/uL (130-400); RED BLOOD COUNT 4.07 10*6/uL (4.10-5.10); RED CELL DISTRI WIDTH 14.1 % (0-14.5); WHITE BLOOD COUNT 7.5 10*3/uL (4.8-10.8)
[2020-08-01 14:52] LABS: ACT PARTIAL THROMBO TIME 25.3 SECONDS (20.0-32.1); INTERNATIONAL NORM RATIO 1.1 (2.0-3.5)
[2020-08-01 15:02] LABS: ALBUMIN 3.1 gm/dl (3.1-4.5); ALKALINE PHOSPHATASE 134 U/L (45-117); BUN 9 mg/dl (7-24); CHLORIDE 107 mmol/L (98-107); CREATININE 0.62 mg/dL (0.55-1.02); LIPASE 91 U/L (73-393); POTASSIUM 3.5 mmol/L (3.5-5.1); SGOT/AST 9 IU/L (3-35); SGPT/ALT 12 U/L (12-78); SODIUM 140 mmol/L (136-145); TOTAL PROTEIN 6.9 gm/dL (6.4-8.2)
[2020-08-01 15:04] LABS: TROPONIN I < 0.015 ng/ml (<0.045)
[2020-08-01 17:22] LABS: BILIRUBIN Negative (Negative); BLOOD Negative (Negative); CLARITY Clear (Clear); COLOR Dark Yellow (Yellow); GLUCOSE Negative (Negative); KETONE Trace (Negative); LEUKO ESTERASE Negative (Negative); NITRITE Negative (Negative); PH 6.5 (4.5-8.0); SPECIFIC GRAVITY 1.025 (1.001-1.030)
[2020-08-01 17:31] LABS: BACTERIA 1+; CALCIUM OXALATE CRYSTALS 1+; EPITHELIAL CELLS 21-30; MUCOUS 1+
[2020-08-01 19:39] VITALS: BP 132/73
[2020-08-01 21:30] VITALS: BP 152/57
[2020-08-01] MEDS ORDERED: EFFER-K20 MEQ PO (21:52)
[2020-08-01] MEDS ORDERED: SIMVASTATIN40 MG PO (21:54)
[2020-08-01] MEDS ORDERED: K-TAB20 MEQ PO (22:29)
[2020-08-02] VITALS: BP 124/59
[2020-08-02 08:00] VITALS: BP 114/62
[2020-08-02 16:00] VITALS: BP 120/50
[2020-08-02 20:00] VITALS: BP 105/69
[2020-08-03] VITALS: BP 103/49
[2020-08-03 08:00] VITALS: BP 140/76
[2020-08-03 08:25] LABS: ABG BASE EXCESS 2.8 mmol/L (-2.0-2.0); ARTERIAL BLOOD GAS PH 7.352 (7.35-7.45); ARTERIAL BLOOD GAS PO2 57.3 (80-90)
[2020-08-03 10:25] LABS: BASO % 0.2 % (0.0-1.0); EOS # 0.4 10*3/uL (0.0-0.4); EOS % 8.2 % (1.0-4.0); HEMATOCRIT 37.4 % (37.0-47.0); LYMPH # 1.7 10*3/uL (1.3-4.4); LYMPH % 36.4 % (27.0-41.0); MEAN CELL VOLUME 100.3 fl (81.0-99.0); MEAN CORPUSCULAR HGB 31.4 pg (27.0-31.0); MEAN CORPUSCULAR HGB CONC 31.3 g/dl (33.0-37.0); MEAN PLATELET VOLUME 11.8 fl (9.6-12.3); MONO # 0.6 10*3/uL (0.1-1.0); MONO % 11.6 % (3.0-9.0); NEUT # 2.1 10*3/uL (2.3-7.9); NEUT % 43.4 % (47.0-73.0); PLATELET COUNT AUTOMATED 167 10*3/uL (130-400); RED BLOOD COUNT 3.73 10*6/uL (4.10-5.10); RED CELL DISTRI WIDTH 14.1 % (0-14.5); WHITE BLOOD COUNT 4.7 10*3/uL (4.8-10.8)
[2020-08-03 12:32] LABS: ABG BASE EXCESS 1.4 mmol/L (-2.0-2.0); ARTERIAL BLOOD GAS PH 7.367 (7.35-7.45); ARTERIAL BLOOD GAS PO2 100.7 (80-90)
[2020-08-03 16:00] VITALS: BP 144/82
[2020-08-03 20:00] VITALS: BP 104/67
[2020-08-04] VITALS: BP 93/53
[2020-08-04 08:00] VITALS: BP 124/68
[2020-08-04 12:00] VITALS: BP 116/59
[2020-08-04 16:00] VITALS: BP 90/50
== END 2020-08-04 18:54 | disposition home or self-care (01) ==
LOC: ED 14:05 → EDHOLD 17:55 → 5E 17:55
PROVIDERS: Emergency Medicine; ADMIT Internal Medicine; ATTEND Internal Medicine
DX: G93.41 Metabolic encephalopathy (principal); R11.2 Nausea with vomiting, unspecified; R42 Dizziness and giddiness; F41.1 Generalized anxiety disorder; E78.2 Mixed hyperlipidemia; E03.9 Hypothyroidism, unspecified; E66.01 Morbid (severe) obesity due to excess calories; E11.9 Type 2 diabetes mellitus without complications; G43.909 Migraine, unspecified, not intractable, without status migrainosus; R32 Unspecified urinary incontinence; G89.29 Other chronic pain; M54.5 Low back pain; M48.00 Spinal stenosis, site unspecified; F32.9 Major depressive disorder, single episode, unspecified; I10 Essential (primary) hypertension; F29 Unspecified psychosis not due to a substance or known physiological condition; J96.00 Acute respiratory failure, unspecified whether with hypoxia or hypercapnia; Z79.899 Other long term (current) drug therapy

== ENCOUNTER → 2020-09-06 | Outpatient (CLI) | payer OTHER ==
[~2020-09-06] MED LIST changes: +EFFER-K20 MEQ PO; +SIMVASTATIN40 MG PO
[2020-09-06 10:38] LABS: BASO % 0.3 % (0.0-1.0); EOS # 0.4 10*3/uL (0.0-0.4); EOS % 6.2 % (1.0-4.0); HEMATOCRIT 36.6 % (37.0-47.0); LYMPH # 1.6 10*3/uL (1.3-4.4); LYMPH % 22.2 % (27.0-41.0); MEAN CELL VOLUME 96.8 fl (81.0-99.0); MEAN CORPUSCULAR HGB 30.4 pg (27.0-31.0); MEAN CORPUSCULAR HGB CONC 31.4 g/dl (33.0-37.0); MEAN PLATELET VOLUME 11.4 fl (9.6-12.3); MONO # 0.6 10*3/uL (0.1-1.0); MONO % 7.9 % (3.0-9.0); NEUT # 4.5 10*3/uL (2.3-7.9); NEUT % 63.1 % (47.0-73.0); PLATELET COUNT AUTOMATED 211 10*3/uL (130-400); RED BLOOD COUNT 3.78 10*6/uL (4.10-5.10); RED CELL DISTRI WIDTH 13.4 % (0-14.5); WHITE BLOOD COUNT 7.1 10*3/uL (4.8-10.8)
[2020-09-06 10:58] LABS: BUN 9 mg/dl (7-24); CHLORIDE 110 mmol/L (98-107); CREATININE 0.71 mg/dL (0.55-1.02); POTASSIUM 3.6 mmol/L (3.5-5.1); SODIUM 143 mmol/L (136-145)
== END | disposition home or self-care (01) ==
LOC: LAB 10:02
PROVIDERS: ATTEND Internal Medicine
DX: I10 Essential (primary) hypertension (principal); L08.9 Local infection of the skin and subcutaneous tissue, unspecified

== ENCOUNTER 2020-10-17 13:37 | Inpatient (IN) | payer MEDICARE ==
[~2020-10-17] VITALS: Ht 170 cm; Wt 137.0 kg
[2020-10-17 13:47] VITALS: BP 129/87
[2020-10-17 14:44] LABS: BASO % 0.2 % (0.0-1.0); HEMATOCRIT 36.9 % (37.0-47.0); LYMPH # 1.7 10*3/uL (1.3-4.4); LYMPH % 20.5 % (27.0-41.0); MEAN CELL VOLUME 92.5 fl (81.0-99.0); MEAN CORPUSCULAR HGB 30.3 pg (27.0-31.0); MEAN CORPUSCULAR HGB CONC 32.8 g/dl (33.0-37.0); MEAN PLATELET VOLUME 10.7 fl (9.6-12.3); MONO # 0.6 10*3/uL (0.1-1.0); MONO % 6.9 % (3.0-9.0); NEUT # 5.8 10*3/uL (2.3-7.9); NEUT % 72.2 % (47.0-73.0); PLATELET COUNT AUTOMATED 224 10*3/uL (130-400); RED BLOOD COUNT 3.99 10*6/uL (4.10-5.10); RED CELL DISTRI WIDTH 13.4 % (0-14.5); WHITE BLOOD COUNT 8.1 10*3/uL (4.8-10.8)
[2020-10-17 15:06] LABS: ACT PARTIAL THROMBO TIME 26.8 SECONDS (20.0-32.1)
[2020-10-17 15:08] LABS: ALBUMIN 3.5 gm/dl (3.1-4.5); ALKALINE PHOSPHATASE 112 U/L (45-117); BUN 12 mg/dl (7-24); CHLORIDE 107 mmol/L (98-107); CREATININE 0.85 mg/dL (0.55-1.02); POTASSIUM 3.6 mmol/L (3.5-5.1); SGOT/AST 13 IU/L (3-35); SGPT/ALT 17 U/L (12-78); SODIUM 139 mmol/L (136-145); TOTAL PROTEIN 7.5 gm/dL (6.4-8.2)
[2020-10-17 17:16] VITALS: BP 124/43
[2020-10-17 18:30] VITALS: BP 128/55
[2020-10-17 20:00] VITALS: BP 106/46
[2020-10-18] VITALS: BP 99/51
[2020-10-18 06:24] LABS: BASO % 0.2 % (0.0-1.0); HEMATOCRIT 34.3 % (37.0-47.0); LYMPH # 1.4 10*3/uL (1.3-4.4); LYMPH % 21.1 % (27.0-41.0); MEAN CELL VOLUME 94.2 fl (81.0-99.0); MEAN CORPUSCULAR HGB 30.5 pg (27.0-31.0); MEAN CORPUSCULAR HGB CONC 32.4 g/dl (33.0-37.0); MEAN PLATELET VOLUME 11.1 fl (9.6-12.3); MONO # 0.3 10*3/uL (0.1-1.0); MONO % 4.9 % (3.0-9.0); NEUT # 4.8 10*3/uL (2.3-7.9); NEUT % 73.5 % (47.0-73.0); PLATELET COUNT AUTOMATED 193 10*3/uL (130-400); RED BLOOD COUNT 3.64 10*6/uL (4.10-5.10); RED CELL DISTRI WIDTH 13.5 % (0-14.5); WHITE BLOOD COUNT 6.5 10*3/uL (4.8-10.8)
[2020-10-18 06:37] LABS: ALBUMIN 2.9 gm/dl (3.1-4.5); BUN 13 mg/dl (7-24); CHLORIDE 107 mmol/L (98-107); POTASSIUM 3.6 mmol/L (3.5-5.1); SGOT/AST 23 IU/L (3-35); SGPT/ALT 21 U/L (12-78); SODIUM 139 mmol/L (136-145); TOTAL PROTEIN 6.4 gm/dL (6.4-8.2)
[2020-10-18 06:38] LABS: ALKALINE PHOSPHATASE 115 U/L (45-117)
[2020-10-18 08:00] VITALS: BP 115/58
[2020-10-18 12:00] VITALS: BP 92/40
[2020-10-18 16:00] VITALS: BP 94/54
[2020-10-18 20:00] VITALS: BP 93/50
[2020-10-19] VITALS: BP 90/50
[2020-10-19] MEDS ORDERED: SEPTDS PO (07:32)
[2020-10-19 08:00] VITALS: BP 90/48
== END 2020-10-19 10:44 | disposition home or self-care (01) | DRG 603 ==
LOC: ED 13:37 → 4E 14:24 → EDHOLD 14:24 → 4E 17:08
PROVIDERS: Emergency Medicine; ADMIT Internal Medicine; ATTEND Internal Medicine
DX: L02.91 Cutaneous abscess, unspecified (principal); L03.116 Cellulitis of left lower limb; B95.62 Methicillin resistant Staphylococcus aureus infection as the cause of diseases classified elsewhere; G89.29 Other chronic pain; M54.5 Low back pain; E11.9 Type 2 diabetes mellitus without complications; I10 Essential (primary) hypertension; E66.01 Morbid (severe) obesity due to excess calories; F32.9 Major depressive disorder, single episode, unspecified; E03.9 Hypothyroidism, unspecified; L02.416 Cutaneous abscess of left lower limb; Z68.43 Body mass index [BMI] 50.0-59.9, adult; F41.1 Generalized anxiety disorder; Z91.09 Other allergy status, other than to drugs and biological substances

== ENCOUNTER 2021-01-27 20:39 | Emergency (ER) | payer OTHER ==
[~2021-01-27] VITALS: Ht 170.1 cm; Wt 136.1 kg
[~2021-01-27 20:39] MED LIST changes: +AUGMENTIN 875875 MG PO; +DULOXETINE HCL30 MG PO
[2021-01-27 20:59] VITALS: BP 126/43
[2021-01-27 21:31] LABS: BASO % 0.3 % (0.0-1.0); EOS # 0.2 10*3/uL (0.0-0.4); EOS % 2.3 % (1.0-4.0); HEMATOCRIT 37.2 % (37.0-47.0); LYMPH % 38.4 % (27.0-41.0); MEAN CELL VOLUME 96.4 fl (81.0-99.0); MEAN CORPUSCULAR HGB 31.1 pg (27.0-31.0); MEAN CORPUSCULAR HGB CONC 32.3 g/dl (33.0-37.0); MEAN PLATELET VOLUME 9.4 fl (9.6-12.3); MONO # 0.5 10*3/uL (0.1-1.0); MONO % 6.6 % (3.0-9.0); NEUT # 4.1 10*3/uL (2.3-7.9); NEUT % 52.1 % (47.0-73.0); PLATELET COUNT AUTOMATED 325 10*3/uL (130-400); RED BLOOD COUNT 3.86 10*6/uL (4.10-5.10); RED CELL DISTRI WIDTH 13.6 % (0-14.5); WHITE BLOOD COUNT 7.9 10*3/uL (4.8-10.8)
[2021-01-27 21:48] LABS: ALBUMIN 3.2 gm/dl (3.1-4.5); ALKALINE PHOSPHATASE 110 U/L (45-117); BUN 9 mg/dl (7-24); CHLORIDE 108 mmol/L (98-107); CREATININE 0.66 mg/dL (0.55-1.02); POTASSIUM 3.6 mmol/L (3.5-5.1); SGOT/AST 10 IU/L (3-35); SGPT/ALT 13 U/L (12-78); SODIUM 138 mmol/L (136-145); TOTAL PROTEIN 7.3 gm/dL (6.4-8.2); TROPONIN I < 0.015 ng/ml (<0.045)
[2021-01-27 21:55] LABS: BILIRUBIN Negative (Negative); BLOOD Negative (Negative); CLARITY Clear (Clear); COLOR Yellow (Yellow); GLUCOSE Negative (Negative); KETONE Negative (Negative); LEUKO ESTERASE 1+ (Negative); NITRITE Negative (Negative); PH 5.5 (4.5-8.0); SPECIFIC GRAVITY 1.015 (1.001-1.030); UROBILINOGEN 0.2 E.U./dl (0.0-1.0)
[2021-01-27 22:05] LABS: BACTERIA 2+; EPITHELIAL CELLS 16-20; MUCOUS 1+
[2021-01-28] MEDS ORDERED: LEVOFLOXACIN750 M2 PO ×2 (00:22)
[2021-02-21] MEDS ORDERED: VIBRAMYCIN HYC100 MG PO (17:05)
== END 2021-01-28 00:32 | disposition home or self-care (01) ==
LOC: ED 20:39
PROVIDERS: Physician Assistant
DX: M25.551 Pain in right hip (principal); R82.998 Other abnormal findings in urine; G89.29 Other chronic pain; K21.9 Gastro-esophageal reflux disease without esophagitis; Z98.890 Other specified postprocedural states; Z91.048 Other nonmedicinal substance allergy status; Z79.899 Other long term (current) drug therapy; Z79.2 Long term (current) use of antibiotics

== ENCOUNTER 2021-02-21 12:10 | Emergency (ER) | payer OTHER ==
[~2021-02-21] VITALS: Wt 136.1 kg
[~2021-02-21 12:10] MED LIST changes: +LEVOFLOXACIN750 M2 PO
[2021-02-21 12:38] VITALS: BP 113/45
[2021-02-21 15:39] LABS: ALBUMIN 3.3 gm/dl (3.1-4.5); ALKALINE PHOSPHATASE 108 U/L (45-117); BUN 5 mg/dl (7-24); CHLORIDE 101 mmol/L (98-107); CREATININE 0.63 mg/dL (0.55-1.02); SGOT/AST 101 IU/L (3-35); SGPT/ALT 28 U/L (12-78); SODIUM 136 mmol/L (136-145); TOTAL PROTEIN 7.5 gm/dL (6.4-8.2)
[2021-02-21 16:07] LABS: HEMATOCRIT 35.2 % (37.0-47.0); MEAN CELL VOLUME 94.1 fl (81.0-99.0); MEAN CORPUSCULAR HGB 31.3 pg (27.0-31.0); MEAN CORPUSCULAR HGB CONC 33.2 g/dl (33.0-37.0); MEAN PLATELET VOLUME 11.1 fl (9.6-12.3); PLATELET COUNT AUTOMATED 202 10*3/uL (130-400); RED BLOOD COUNT 3.74 10*6/uL (4.10-5.10); RED CELL DISTRI WIDTH 13.2 % (0-14.5)
[2021-02-21 16:40] LABS: TOTAL CELLS COUNTED 100 #CELLS
[2021-02-21 16:41] LABS: BURR CELLS FEW; OVALOCYTES FEW; PLATELET SUFFICIENCY NORMAL (NORMAL)
[2021-02-21] MEDS ORDERED: VIBRAMYCIN HYC100 MG PO ×2 (17:05)
== END 2021-02-21 17:46 | disposition home or self-care (01) ==
LOC: ED 12:10
PROVIDERS: Student in an Organized Health Care Education/Training Program
DX: L03.311 Cellulitis of abdominal wall (principal); Z79.899 Other long term (current) drug therapy

== ENCOUNTER 2021-02-26 15:03 | Inpatient (IN) | payer OTHER ==
[~2021-02-26] VITALS: Ht 170.1 cm
[~2021-02-26 15:03] MED LIST changes: +VIBRAMYCIN HYC100 MG PO
[2021-02-26 16:38] LABS: BASO % 0.1 % (0.0-1.0); LYMPH # 2.5 10*3/uL (1.3-4.4); LYMPH % 22.2 % (27.0-41.0); MEAN CELL VOLUME 92.8 fl (81.0-99.0); MEAN CORPUSCULAR HGB 30.9 pg (27.0-31.0); MEAN CORPUSCULAR HGB CONC 33.3 g/dl (33.0-37.0); MEAN PLATELET VOLUME 10.2 fl (9.6-12.3); MONO # 0.9 10*3/uL (0.1-1.0); MONO % 7.8 % (3.0-9.0); NEUT # 7.8 10*3/uL (2.3-7.9); NEUT % 69.5 % (47.0-73.0); PLATELET COUNT AUTOMATED 277 10*3/uL (130-400); RED BLOOD COUNT 3.88 10*6/uL (4.10-5.10); RED CELL DISTRI WIDTH 13.2 % (0-14.5); WHITE BLOOD COUNT 11.2 10*3/uL (4.8-10.8)
[2021-02-26 16:59] LABS: ALBUMIN 2.9 gm/dl (3.1-4.5); ALKALINE PHOSPHATASE 110 U/L (45-117); BUN 19 mg/dl (7-24); CHLORIDE 100 mmol/L (98-107); CREATININE 0.89 mg/dL (0.55-1.02); LIPASE 82 U/L (73-393); POTASSIUM 2.8 mmol/L (3.5-5.1); SGOT/AST 122 IU/L (3-35); SGPT/ALT 86 U/L (12-78); SODIUM 138 mmol/L (136-145); TOTAL PROTEIN 7.5 gm/dL (6.4-8.2)
[2021-02-26 17:01] LABS: TROPONIN I < 0.015 ng/ml (<0.045)
[2021-02-26 20:04] VITALS: BP 142/84
[2021-02-27] VITALS (7 sets, daily range): BP systolic 106–152; BP diastolic 56–84
[2021-02-27 06:56] LABS: BASO % 0.2 % (0.0-1.0); EOS # 0.4 10*3/uL (0.0-0.4); EOS % 4.4 % (1.0-4.0); HEMATOCRIT 33.1 % (37.0-47.0); LYMPH # 2.4 10*3/uL (1.3-4.4); LYMPH % 27.3 % (27.0-41.0); MEAN CELL VOLUME 93.5 fl (81.0-99.0); MEAN CORPUSCULAR HGB 31.4 pg (27.0-31.0); MEAN CORPUSCULAR HGB CONC 33.5 g/dl (33.0-37.0); MEAN PLATELET VOLUME 9.9 fl (9.6-12.3); MONO # 0.8 10*3/uL (0.1-1.0); NEUT # 5.1 10*3/uL (2.3-7.9); NEUT % 58.6 % (47.0-73.0); PLATELET COUNT AUTOMATED 236 10*3/uL (130-400); RED BLOOD COUNT 3.54 10*6/uL (4.10-5.10); RED CELL DISTRI WIDTH 13.2 % (0-14.5); WHITE BLOOD COUNT 8.6 10*3/uL (4.8-10.8)
[2021-02-27 07:26] LABS: ALBUMIN 2.5 gm/dl (3.1-4.5); ALKALINE PHOSPHATASE 93 U/L (45-117); BUN 18 mg/dl (7-24); CHLORIDE 102 mmol/L (98-107); CREATININE 0.63 mg/dL (0.55-1.02); POTASSIUM 2.8 mmol/L (3.5-5.1); SGOT/AST 82 IU/L (3-35); SGPT/ALT 67 U/L (12-78); SODIUM 141 mmol/L (136-145); TOTAL PROTEIN 6.2 gm/dL (6.4-8.2)
[2021-02-28] VITALS: BP 129/59
[2021-02-28 08:00] VITALS: BP 124/70
[2021-02-28 09:05] LABS: BILIRUBIN Negative (Negative); BLOOD Negative (Negative); CLARITY Cloudy (Clear); COLOR Yellow (Yellow); GLUCOSE Negative (Negative); KETONE 1+ (Negative); LEUKO ESTERASE 1+ (Negative); NITRITE Negative (Negative)
[2021-02-28 09:12] LABS: URINE AMPHETAMINES < 1000 (1000ng/ml); URINE BARBITURATES < 200 (200ng/ml); URINE BENZODIAZEPINES > 200 (200ng/ml); URINE CANNABINOIDS (THC) > 50 (50ng/ml); URINE COCAINE < 300 (300ng/ml); URINE METHADONE < 300 (300ng/ml); URINE OPIATES > 300 (300ng/ml)
[2021-02-28 09:13] LABS: EPITHELIAL CELLS 41-50; YEAST 1+
[2021-02-28 09:14] LABS: WBC 16-20 wbc/hpf (0-5)
[2021-02-28 09:16] LABS: BACTERIA 1+
[2021-02-28 09:18] LABS: URINE PHENCYCLIDINE < 25 (25ng/ml)
[2021-02-28 09:49] LABS: BASO % 0.1 % (0.0-1.0); EOS # 0.5 10*3/uL (0.0-0.4); EOS % 6.7 % (1.0-4.0); HEMATOCRIT 34.7 % (37.0-47.0); LYMPH # 1.6 10*3/uL (1.3-4.4); LYMPH % 23.9 % (27.0-41.0); MEAN CORPUSCULAR HGB 31.7 pg (27.0-31.0); MEAN CORPUSCULAR HGB CONC 33.7 g/dl (33.0-37.0); MEAN PLATELET VOLUME 9.6 fl (9.6-12.3); MONO # 0.5 10*3/uL (0.1-1.0); MONO % 6.7 % (3.0-9.0); NEUT # 4.2 10*3/uL (2.3-7.9); NEUT % 62.2 % (47.0-73.0); PLATELET COUNT AUTOMATED 242 10*3/uL (130-400); RED BLOOD COUNT 3.69 10*6/uL (4.10-5.10); RED CELL DISTRI WIDTH 13.3 % (0-14.5); WHITE BLOOD COUNT 6.8 10*3/uL (4.8-10.8)
[2021-02-28 10:17] LABS: BUN 12 mg/dl (7-24); CHLORIDE 104 mmol/L (98-107); CREATININE 0.58 mg/dL (0.55-1.02); POTASSIUM 3.1 mmol/L (3.5-5.1); SODIUM 139 mmol/L (136-145)
[2021-02-28 12:00] VITALS: BP 108/55
[2021-02-28 20:00] VITALS: BP 120/38
[2021-03-01] VITALS: BP 102/57
[2021-03-01 08:00] VITALS: BP 120/80
[2021-03-01] MEDS ORDERED: INVEGA3 MG PO (10:41)
[2021-03-01] MEDS ORDERED: DEPAKOTE500 MG PO (10:41)
[2021-03-01] MEDS ORDERED: VIBRAMYCIN100 MG PO (10:45)
[2021-03-01 11:54] LABS: VITAMIN D, 25-HYDROXY 27.6 ng/mL (30-100)
[2021-03-01 11:57] LABS: FREE T4 1.17 ng/dl (0.76-1.46)
[2021-03-01 12:02] LABS: THYROID STIM HORMONE (HS) 1.23 uIU/ml (0.358-4.75)
== END 2021-03-01 13:15 | DRG 603 ==
LOC: ED 15:03 → EDHOLD 17:43 → 4E 17:43 → EDHOLD 02-27 08:08 → 4E 02-27 15:34
PROVIDERS: Counselor Professional; Emergency Medicine; ADMIT Internal Medicine; ATTEND Internal Medicine
DX: L02.211 Cutaneous abscess of abdominal wall (principal); E44.1 Mild protein-calorie malnutrition; E87.2 Acidosis; I10 Essential (primary) hypertension; E87.6 Hypokalemia; F41.1 Generalized anxiety disorder; Z88.8 Allergy status to other drugs, medicaments and biological substances; F32.9 Major depressive disorder, single episode, unspecified; F29 Unspecified psychosis not due to a substance or known physiological condition

== ENCOUNTER 2021-03-01 13:25 | Inpatient (IN) | payer OTHER ==
[~2021-03-01] VITALS: Ht 170.1 cm; Wt 138.8 kg
[~2021-03-01 13:25] MED LIST changes: +DEPAKOTE500 MG PO; +INVEGA3 MG PO; +VIBRAMYCIN100 MG PO
[2021-03-01 14:40] VITALS: BP 123/89
[2021-03-01 19:57] VITALS: BP 112/91
[2021-03-02 08:00] VITALS: BP 138/67
[2021-03-02 20:00] VITALS: BP 102/74
[2021-03-03 08:00] VITALS: BP 116/59
[2021-03-03 20:00] VITALS: BP 134/79
[2021-03-04 08:00] VITALS: BP 146/75
[2021-03-04 19:22] VITALS: BP 120/63
[2021-03-05 08:00] VITALS: BP 108/65
[2021-03-05 20:00] VITALS: BP 108/58
[2021-03-06 08:06] VITALS: BP 124/55
[2021-03-06 20:00] VITALS: BP 123/51
[2021-03-07 08:00] VITALS: BP 102/65
[2021-03-07 20:00] VITALS: BP 128/77
[2021-03-08 06:42] LABS: BASO % 0.2 % (0.0-1.0); EOS # 0.3 10*3/uL (0.0-0.4); EOS % 6.9 % (1.0-4.0); HEMATOCRIT 30.1 % (37.0-47.0); LYMPH # 2.3 10*3/uL (1.3-4.4); LYMPH % 53.9 % (27.0-41.0); MEAN CELL VOLUME 96.2 fl (81.0-99.0); MEAN CORPUSCULAR HGB 31.3 pg (27.0-31.0); MEAN CORPUSCULAR HGB CONC 32.6 g/dl (33.0-37.0); MEAN PLATELET VOLUME 11.1 fl (9.6-12.3); MONO # 0.5 10*3/uL (0.1-1.0); MONO % 10.4 % (3.0-9.0); NEUT # 1.2 10*3/uL (2.3-7.9); NEUT % 28.4 % (47.0-73.0); PLATELET COUNT AUTOMATED 188 10*3/uL (130-400); RED BLOOD COUNT 3.13 10*6/uL (4.10-5.10); RED CELL DISTRI WIDTH 14.2 % (0-14.5); WHITE BLOOD COUNT 4.3 10*3/uL (4.8-10.8)
[2021-03-08 06:49] LABS: ALBUMIN 2.4 gm/dl (3.1-4.5); ALKALINE PHOSPHATASE 78 U/L (45-117); BUN 12 mg/dl (7-24); CHLORIDE 106 mmol/L (98-107); CREATININE 0.54 mg/dL (0.55-1.02); POTASSIUM 4.2 mmol/L (3.5-5.1); SGOT/AST 10 IU/L (3-35); SGPT/ALT 17 U/L (12-78); SODIUM 140 mmol/L (136-145); TOTAL PROTEIN 5.4 gm/dL (6.4-8.2)
[2021-03-08 08:00] VITALS: BP 126/72
[2021-03-08 20:00] VITALS: BP 131/74
[2021-03-08] MEDS ORDERED: HYDROXYZINE HCL25 MG PO (21:27)
[2021-03-08] MEDS ORDERED: DIVALPROEX SOD500 MG PO (21:27)
[2021-03-08] MEDS ORDERED: NATURE'S BLEND F1 MG PO (21:27)
[2021-03-08] MEDS ORDERED: VITAMIN D3125 MC1 PO (21:27)
[2021-03-09 07:55] VITALS: BP 124/74
[2021-03-09 19:32] VITALS: BP 123/71
[2021-03-10 07:27] VITALS: BP 107/66
[2021-03-10] MEDS ORDERED: PALIPERIDONE ER6 MG PO (08:59)
== END 2021-03-10 17:24 | disposition home or self-care (01) | DRG 885 ==
LOC: 3N 13:25
PROVIDERS: ADMIT Psychiatry & Neurology Psychiatry; ATTEND Psychiatry & Neurology Psychiatry
DX: F31.10 Bipolar disorder, current episode manic without psychotic features, unspecified (principal); E43 Unspecified severe protein-calorie malnutrition; N39.0 Urinary tract infection, site not specified; E03.9 Hypothyroidism, unspecified; R32 Unspecified urinary incontinence; E78.2 Mixed hyperlipidemia; B96.4 Proteus (mirabilis) (morganii) as the cause of diseases classified elsewhere; Z88.8 Allergy status to other drugs, medicaments and biological substances; B95.62 Methicillin resistant Staphylococcus aureus infection as the cause of diseases classified elsewhere; F41.1 Generalized anxiety disorder; E11.9 Type 2 diabetes mellitus without complications; E66.01 Morbid (severe) obesity due to excess calories; E55.9 Vitamin D deficiency, unspecified

== ENCOUNTER 2021-05-02 18:47 | Emergency (ER) | payer OTHER ==
[~2021-05-02] VITALS: Ht 170.1 cm; Wt 136.1 kg
[~2021-05-02 18:47] MED LIST changes: +DIVALPROEX SOD500 MG PO; +HYDROXYZINE HCL25 MG PO; +PALIPERIDONE ER6 MG PO; +VITAMIN D3125 MC1 PO
[2021-05-02 18:55] VITALS: BP 91/48
[2021-05-02] MEDS ORDERED: SEPTDS PO (21:41)
== END 2021-05-02 21:51 | disposition home or self-care (01) ==
LOC: ED 18:47
DX: L02.416 Cutaneous abscess of left lower limb (principal); M25.571 Pain in right ankle and joints of right foot; Z79.899 Other long term (current) drug therapy; W06.XXXA Fall from bed, initial encounter; Y93.89 Activity, other specified; Y92.89 Other specified places as the place of occurrence of the external cause; Y99.8 Other external cause status

== ENCOUNTER 2021-05-09 16:11 | Emergency (ER) | payer OTHER ==
[~2021-05-09] VITALS: Ht 170.2 cm; Wt 136.1 kg
[2021-05-09 17:21] VITALS: BP 110/78
== END 2021-05-09 18:00 | disposition home or self-care (01) ==
LOC: ED 16:11
DX: R09.02 Hypoxemia (principal); Z79.899 Other long term (current) drug therapy

== ENCOUNTER → 2021-10-17 | Outpatient (CLI) | payer OTHER ==
[2021-10-17 10:22] LABS: BASO % 0.3 % (0.0-1.0); EOS # 0.5 10*3/uL (0.0-0.4); EOS % 7.5 % (1.0-4.0); HEMATOCRIT 31.5 % (37.0-47.0); LYMPH # 2.5 10*3/uL (1.3-4.4); LYMPH % 37.1 % (27.0-41.0); MEAN CELL VOLUME 92.1 fl (81.0-99.0); MEAN CORPUSCULAR HGB 31.6 pg (27.0-31.0); MEAN CORPUSCULAR HGB CONC 34.3 g/dl (33.0-37.0); MONO # 0.8 10*3/uL (0.1-1.0); MONO % 11.8 % (3.0-9.0); NEUT # 2.9 10*3/uL (2.3-7.9); NEUT % 41.8 % (47.0-73.0); PLATELET COUNT AUTOMATED 206 10*3/uL (130-400); RED BLOOD COUNT 3.42 10*6/uL (4.10-5.10); RED CELL DISTRI WIDTH 12.8 % (0-14.5); WHITE BLOOD COUNT 6.8 10*3/uL (4.8-10.8)
[2021-10-17 10:45] LABS: BUN 13 mg/dl (7-24); CHLORIDE 91 mmol/L (98-107); CHOLESTEROL 122 mg/dL (<200); CREATININE 1.11 mg/dL (0.55-1.02); POTASSIUM 4.6 mmol/L (3.5-5.1); SGOT/AST 9 IU/L (3-35); SGPT/ALT 6 U/L (12-78); SODIUM 125 mmol/L (136-145); TOTAL PROTEIN 6.3 gm/dL (6.4-8.2); TRIGLYCERIDES 63 mg/dl (<150)
[2021-10-17 10:51] LABS: ALKALINE PHOSPHATASE 52 U/L (45-117); LDL CHOLESTEROL 63 mg/dL (9-159); VALPROIC ACID (DEPAKENE) 84.8 ug/ml (50-100)
== END | disposition home or self-care (01) ==
LOC: LAB 09:53
PROVIDERS: ATTEND Nurse Practitioner
DX: F33.1 Major depressive disorder, recurrent, moderate (principal); F41.1 Generalized anxiety disorder; F31.2 Bipolar disorder, current episode manic severe with psychotic features; Z79.899 Other long term (current) drug therapy

== ENCOUNTER → 2022-03-17 | Outpatient (CLI) | payer OTHER ==
[2022-03-17 12:05] LABS: BASO % 0.2 % (0.0-1.0); HEMATOCRIT 38.2 % (37.0-47.0); LYMPH # 2.2 10*3/uL (1.3-4.4); LYMPH % 37.8 % (27.0-41.0); MEAN CELL VOLUME 95.7 fl (81.0-99.0); MEAN CORPUSCULAR HGB 32.3 pg (27.0-31.0); MEAN CORPUSCULAR HGB CONC 33.8 g/dl (33.0-37.0); MEAN PLATELET VOLUME 9.3 fl (9.6-12.3); MONO # 0.5 10*3/uL (0.1-1.0); MONO % 9.2 % (3.0-9.0); NEUT # 3.1 10*3/uL (2.3-7.9); NEUT % 52.6 % (47.0-73.0); PLATELET COUNT AUTOMATED 170 10*3/uL (130-400); RED BLOOD COUNT 3.99 10*6/uL (4.10-5.10); WHITE BLOOD COUNT 5.9 10*3/uL (4.8-10.8)
[2022-03-17 12:23] LABS: ALKALINE PHOSPHATASE 56 U/L (45-117); BUN 8 mg/dl (7-24); CHLORIDE 100 mmol/L (98-107); CHOLESTEROL 140 mg/dL (<200); CREATININE 0.96 mg/dL (0.55-1.02); LDL CHOLESTEROL 65 mg/dL (9-159); POTASSIUM 3.8 mmol/L (3.5-5.1); SGOT/AST 8 IU/L (3-35); SGPT/ALT 10 U/L (12-78); SODIUM 136 mmol/L (136-145); TOTAL PROTEIN 6.9 gm/dL (6.4-8.2); TRIGLYCERIDES 83 mg/dl (<150)
== END | disposition home or self-care (01) ==
LOC: LAB 11:42
PROVIDERS: ATTEND Nurse Practitioner
DX: F33.1 Major depressive disorder, recurrent, moderate (principal); F41.1 Generalized anxiety disorder; Z79.899 Other long term (current) drug therapy

== ENCOUNTER → 2022-09-24 | Outpatient (CLI) | payer OTHER ==
[2022-09-24 12:12] LABS: BASO % 0.3 % (0.0-1.0); EOS # 0.2 10*3/uL (0.0-0.4); HEMATOCRIT 44.3 % (37.0-47.0); LYMPH # 2.7 10*3/uL (1.3-4.4); LYMPH % 38.6 % (27.0-41.0); MEAN CELL VOLUME 96.1 fl (81.0-99.0); MEAN CORPUSCULAR HGB 32.5 pg (27.0-31.0); MEAN CORPUSCULAR HGB CONC 33.9 g/dl (33.0-37.0); MEAN PLATELET VOLUME 10.7 fl (9.6-12.3); MONO # 0.7 10*3/uL (0.1-1.0); MONO % 10.3 % (3.0-9.0); NEUT # 3.4 10*3/uL (2.3-7.9); NEUT % 47.4 % (47.0-73.0); PLATELET COUNT AUTOMATED 151 10*3/uL (130-400); RED BLOOD COUNT 4.61 10*6/uL (4.10-5.10); RED CELL DISTRI WIDTH 13.2 % (0-14.5); WHITE BLOOD COUNT 7.1 10*3/uL (4.8-10.8)
[2022-09-24 12:42] LABS: ALKALINE PHOSPHATASE 64 U/L (46-116); BUN 7 mg/dl (9-23); CHLORIDE 101 mmol/L (98-107); CHOLESTEROL 152 mg/dL (<200); FREE T4 1.17 ng/dl (0.89-1.76); LDL CHOLESTEROL 76 mg/dL (9-159); POTASSIUM 3.7 mmol/L (3.4-5.1); TOTAL PROTEIN 7.4 gm/dL (6.0-8.0); TRIGLYCERIDES 102 mg/dl (<150)
[2022-09-24 12:44] LABS: VITAMIN D, 25-HYDROXY 31.4 ng/mL (30-100)
[2022-09-24 12:45] LABS: SGPT/ALT < 7 U/L (10-49)
== END | disposition home or self-care (01) ==
LOC: LAB 11:22
PROVIDERS: Internal Medicine; ATTEND Nurse Practitioner
DX: E11.65 Type 2 diabetes mellitus with hyperglycemia (principal); I10 Essential (primary) hypertension; E03.9 Hypothyroidism, unspecified; E55.9 Vitamin D deficiency, unspecified; Z13.0 Encounter for screening for diseases of the blood and blood-forming organs and certain disorders involving the immune mechanism; Z13.1 Encounter for screening for diabetes mellitus; Z13.21 Encounter for screening for nutritional disorder; Z13.220 Encounter for screening for lipoid disorders; Z13.228 Encounter for screening for other metabolic disorders; Z13.6 Encounter for screening for cardiovascular disorders

== ENCOUNTER 2023-07-19 15:13 | Emergency (ER) | payer OTHER ==
[~2023-07-19] VITALS: Ht 170.1 cm; Wt 158.8 kg
[~2023-07-19 15:13] MED LIST changes: +AUSTEDO 12 MG PO; +METRONIDAZOLE500 M1 PO; +PANTOPRAZOLE SO40 MG PO; +TOPIRAMATE50 M2 PO; +TOPROL XL25 MG PO; +VRAYLAR3 MG PO; +[UNRECOGNIZED DRUG - OTHER] PO
[2023-07-19 17:00] VITALS: BP 126/60
[2023-07-19] MEDS ORDERED: HYDROCODONE-AC1 EAC1 PO (20:22)
== END 2023-07-19 20:24 | disposition home or self-care (01) ==
LOC: ED 15:13
DX: M25.551 Pain in right hip (principal); F32.A Depression, unspecified; E11.9 Type 2 diabetes mellitus without complications; I10 Essential (primary) hypertension; J45.909 Unspecified asthma, uncomplicated; M19.90 Unspecified osteoarthritis, unspecified site; Z88.8 Allergy status to other drugs, medicaments and biological substances; Z98.890 Other specified postprocedural states

== ENCOUNTER 2023-10-30 12:19 | Emergency (ER) | payer OTHER ==
[~2023-10-30] VITALS: Ht 170.1 cm; Wt 136.1 kg
[~2023-10-30 12:19] MED LIST changes: +HYDROCODONE-AC1 EAC1 PO
[2023-10-30 12:25] VITALS: BP 124/56
[2023-10-30] MEDS ORDERED: MORPHINE Sulfate 2 MG/ML SYR IV ONE ×2 (12:35→13:05)
[2023-10-30] MEDS ORDERED: Ondansetron Hydrochloride 4 MG/2 ML VIAL IV ONE ×2 (12:35→13:05)
[2023-10-30 13:14] LABS: ALKALINE PHOSPHATASE 58 U/L (46-116); BUN 7 mg/dl (9-23); CHLORIDE 101 mmol/L (98-107); POTASSIUM 4.6 mmol/L (3.4-5.1); TOTAL PROTEIN 6.8 gm/dL (6.0-8.0)
[2023-10-30 13:15] LABS: SGPT/ALT < 7 U/L (5-49)
[2023-10-30 13:37] LABS: BASO % 0.2 % (0.0-1.0); EOS % 0.2 % (1.0-4.0); HEMATOCRIT 34.1 % (37.0-47.0); LYMPH # 1.7 10*3/uL (1.3-4.4); LYMPH % 26.3 % (27.0-41.0); MEAN CORPUSCULAR HGB 31.8 pg (27.0-31.0); MEAN CORPUSCULAR HGB CONC 33.4 g/dl (33.0-37.0); MEAN PLATELET VOLUME 10.1 fl (9.6-12.3); MONO # 0.6 10*3/uL (0.1-1.0); MONO % 9.4 % (3.0-9.0); NEUT # 4.2 10*3/uL (2.3-7.9); NEUT % 63.3 % (47.0-73.0); PLATELET COUNT AUTOMATED 164 10*3/uL (130-400); RED BLOOD COUNT 3.59 10*6/uL (4.10-5.10); RED CELL DISTRI WIDTH 15.1 % (0-14.5); WHITE BLOOD COUNT 6.6 10*3/uL (4.8-10.8)
[2023-10-30] MEDS ORDERED: HYDROmorphONE Hydrochloride 1 MG/ML SYR IM ONE (14:25)
[2023-10-30] MEDS ORDERED: Bacitracin Zinc/Neomycin/Pol 15 GM TUBE T ONE (14:25)
[2023-10-30] MEDS ORDERED: HYDROCODONE-AC1 EAC1 PO (14:35)
[2023-10-30] MEDS ORDERED: SEPTDS PO (14:35)
== END 2023-10-30 15:10 | disposition home or self-care (01) ==
LOC: ED 12:19
PROVIDERS: Emergency Medicine
DX: E11.40 Type 2 diabetes mellitus with diabetic neuropathy, unspecified (principal); I10 Essential (primary) hypertension; E78.5 Hyperlipidemia, unspecified; F31.9 Bipolar disorder, unspecified; J45.909 Unspecified asthma, uncomplicated; M19.90 Unspecified osteoarthritis, unspecified site; Z88.8 Allergy status to other drugs, medicaments and biological substances; Z98.890 Other specified postprocedural states

== ENCOUNTER → 2023-11-10 | Outpatient (CLI) | payer OTHER | END | disposition home or self-care (01) | LOC: WOUNDCARE 00:56 | PROVIDERS: ATTEND Nurse Practitioner Family | DX: T81.30XA Disruption of wound, unspecified, initial encounter (principal); L03.115 Cellulitis of right lower limb; L03.116 Cellulitis of left lower limb; E11.622 Type 2 diabetes mellitus with other skin ulcer; L97.822 Non-pressure chronic ulcer of other part of left lower leg with fat layer exposed; L97.812 Non-pressure chronic ulcer of other part of right lower leg with fat layer exposed; I87.2 Venous insufficiency (chronic) (peripheral); I10 Essential (primary) hypertension; E66.01 Morbid (severe) obesity due to excess calories; F31.9 Bipolar disorder, unspecified; F41.9 Anxiety disorder, unspecified; Z68.42 Body mass index [BMI] 45.0-49.9, adult; Z79.899 Other long term (current) drug therapy; Y83.8 Other surgical procedures as the cause of abnormal reaction of the patient, or of later complication, without mention of misadventure at the time of the procedure; Y92.89 Other specified places as the place of occurrence of the external cause ==

== ENCOUNTER → 2023-11-23 | Outpatient (CLI) | payer OTHER | END | disposition home or self-care (01) | LOC: WOUNDCARE 00:56 | PROVIDERS: ATTEND Nurse Practitioner Primary Care | DX: T81.30XD Disruption of wound, unspecified, subsequent encounter (principal); L03.115 Cellulitis of right lower limb; L03.116 Cellulitis of left lower limb; E11.622 Type 2 diabetes mellitus with other skin ulcer; L97.822 Non-pressure chronic ulcer of other part of left lower leg with fat layer exposed; L97.812 Non-pressure chronic ulcer of other part of right lower leg with fat layer exposed; I87.2 Venous insufficiency (chronic) (peripheral); I10 Essential (primary) hypertension; R60.1 Generalized edema; E66.01 Morbid (severe) obesity due to excess calories; F31.9 Bipolar disorder, unspecified; F41.9 Anxiety disorder, unspecified; Z68.42 Body mass index [BMI] 45.0-49.9, adult; Z79.899 Other long term (current) drug therapy; Y83.8 Other surgical procedures as the cause of abnormal reaction of the patient, or of later complication, without mention of misadventure at the time of the procedure ==

== ENCOUNTER 2023-12-04 14:02 | Inpatient (IN) | payer OTHER ==
[~2023-12-04] VITALS: Ht 152.4 cm; Wt 146.1 kg
[2023-12-04 14:08] VITALS: BP 160/102
[2023-12-04] MEDS ORDERED: ACETAMINOPHEN 325 MG TAB PO ONE (14:30)
[2023-12-04 14:53] LABS: BASO % 0.1 % (0.0-1.0); EOS % 0.4 % (1.0-4.0); HEMATOCRIT 35.7 % (37.0-47.0); LYMPH # 1.1 10*3/uL (1.3-4.4); MEAN CELL VOLUME 97.8 fl (81.0-99.0); MEAN CORPUSCULAR HGB 32.3 pg (27.0-31.0); MEAN CORPUSCULAR HGB CONC 33.1 g/dl (33.0-37.0); MEAN PLATELET VOLUME 9.3 fl (9.6-12.3); MONO # 1.3 10*3/uL (0.1-1.0); MONO % 17.2 % (3.0-9.0); NEUT # 5.2 10*3/uL (2.3-7.9); NEUT % 67.9 % (47.0-73.0); PLATELET COUNT AUTOMATED 148 10*3/uL (130-400); RED BLOOD COUNT 3.65 10*6/uL (4.10-5.10); RED CELL DISTRI WIDTH 14.8 % (0-14.5); WHITE BLOOD COUNT 7.6 10*3/uL (4.8-10.8)
[2023-12-04 15:18] LABS: ALKALINE PHOSPHATASE 69 U/L (46-116); BUN 9 mg/dl (9-23); CHLORIDE 98 mmol/L (98-107); POTASSIUM 4.2 mmol/L (3.4-5.1); SGPT/ALT 9 U/L (5-49); TOTAL PROTEIN 6.6 gm/dL (6.0-8.0)
[2023-12-04] MEDS ORDERED: Piperacillin Sodium/Tazobact 50 ML IV ONE (15:25)
[2023-12-04] MEDS ORDERED: Vancomycin Hydrochloride 250 ML IV ONE (15:25)
[2023-12-04] MEDS ORDERED: SODIUM CHLORIDE 0.9% 1,000 ML IV ONE (15:25)
[2023-12-04] MEDS ORDERED: Acetaminophen/Hydrocodone 5 MG/325 MG TABLET PO PRN (17:40)
[2023-12-04 19:51] VITALS: BP 108/46
[2023-12-04 20:00] VITALS: BP 127/59
[2023-12-04 21:05] VITALS: BP 150/84
[2023-12-04 21:09] LABS: BILIRUBIN 1+ (Negative); BLOOD Negative (Negative); CLARITY Clear (Clear); COLOR Dark Yellow (Yellow); GLUCOSE Negative (Negative); KETONE Trace (Negative); LEUKO ESTERASE Negative (Negative); NITRITE Negative (Negative); SPECIFIC GRAVITY 1.025 (1.001-1.030); UROBILINOGEN >= 8.0 E.U./dl (0.0-1.0)
[2023-12-04 21:19] LABS: EPITHELIAL CELLS 16-20
[2023-12-04] MEDS ORDERED: hydrOXYzine pamoate 25 MG CAP PO SCH (22:00)
[2023-12-04] MEDS ORDERED: TOPIRAMATE 25 MG TAB PO SCH (22:00)
[2023-12-04] MEDS ORDERED: DIVALPROEX (DR) 500 MG TAB PO SCH (22:00)
[2023-12-04] MEDS ORDERED: GABAPENTIN 100 MG CAP PO SCH (22:00)
[2023-12-04] MEDS ORDERED: Piperacillin Sodium/Tazobact 4.5 GM in SODIUM CHLORIDE 0.9% 100 ML IV SCH (22:00)
[2023-12-05] VITALS: BP 130/58
[2023-12-05] MEDS ORDERED: FUROSEMIDE 40 MG/4 ML VIAL ONE (00:53)
[2023-12-05] MEDS ORDERED: VANCOMYCIN/WATER FOR INJ (PEG) 300 ML IV SCH ×2 (02:00→20:00)
[2023-12-05 08:00] VITALS: BP 118/54
[2023-12-05] MEDS ORDERED: Oxybutynin Chloride 5 MG TAB PO SCH (10:00)
[2023-12-05] MEDS ORDERED: Enoxaparin Sodium 40 MG/0.4 ML SYR SC SCH (10:00)
[2023-12-05] MEDS ORDERED: FUROSEMIDE 20 MG TAB PO SCH (10:00)
[2023-12-05] MEDS ORDERED: Levothyroxine Sodium 25 MCG TAB PO SCH (10:00)
[2023-12-05] MEDS ORDERED: CARIPRAZINE HCL 3 MG CAPSULE PO SCH (10:00)
[2023-12-05] MEDS ORDERED: POTASSIUM CHLORIDE 20 MEQ TAB PO SCH (10:00)
[2023-12-05] MEDS ORDERED: Pantoprazole Sodium 40 MG TAB PO SCH (10:00)
[2023-12-05] MEDS ORDERED: METOPROLOL SUCCINATE XR 25 MG TAB PO SCH (10:00)
[2023-12-05 12:00] VITALS: BP 107/60
[2023-12-05 16:00] VITALS: BP 109/46
[2023-12-05 20:00] VITALS: BP 117/70
[2023-12-06 00:23] VITALS: BP 112/63
[2023-12-06 06:15] LABS: BASO % 0.2 % (0.0-1.0); EOS # 0.4 10*3/uL (0.0-0.4); EOS % 8.2 % (1.0-4.0); HEMATOCRIT 33.5 % (37.0-47.0); LYMPH # 1.4 10*3/uL (1.3-4.4); MEAN CELL VOLUME 98.2 fl (81.0-99.0); MEAN CORPUSCULAR HGB CONC 32.5 g/dl (33.0-37.0); MEAN PLATELET VOLUME 9.6 fl (9.6-12.3); MONO # 0.4 10*3/uL (0.1-1.0); MONO % 8.9 % (3.0-9.0); NEUT # 2.2 10*3/uL (2.3-7.9); NEUT % 50.2 % (47.0-73.0); PLATELET COUNT AUTOMATED 122 10*3/uL (130-400); RED BLOOD COUNT 3.41 10*6/uL (4.10-5.10); WHITE BLOOD COUNT 4.4 10*3/uL (4.8-10.8)
[2023-12-06 06:19] LABS: BUN 7 mg/dl (9-23); CHLORIDE 98 mmol/L (98-107); POTASSIUM 3.7 mmol/L (3.4-5.1)
[2023-12-06 08:00] VITALS: BP 100/69
[2023-12-06 12:00] VITALS: BP 105/45
[2023-12-06 16:00] VITALS: BP 145/57
[2023-12-06 20:00] VITALS: BP 130/56
[2023-12-07] VITALS: BP 120/48
[2023-12-07 06:14] LABS: BUN 8 mg/dl (9-23); CHLORIDE 99 mmol/L (98-107); POTASSIUM 3.7 mmol/L (3.4-5.1)
[2023-12-07 08:00] VITALS: BP 90/47
[2023-12-07 12:00] VITALS: BP 114/59
[2023-12-07] MEDS ORDERED: SODIUM CHLORIDE 0.9% 100 ML BAG IV ONE (15:05)
[2023-12-07] MEDS ORDERED: IOHEXOL 350 MG/ML 100 ML VIAL IV ONE (15:05)
[2023-12-07 16:00] VITALS: BP 110/45
[2023-12-07 20:00] VITALS: BP 139/62
[2023-12-07] MEDS ORDERED: NYSTATIN 15 GM BOT T SCH (22:00)
[2023-12-07] MEDS ORDERED: Menthol/Zinc Oxide 4 GM THIN T SCH (22:00)
[2023-12-07] MEDS ORDERED: AMMONIUM LACTATE 12% LOTION T SCH (22:00)
[2023-12-08] VITALS: BP 132/58
[2023-12-08 07:59] LABS: BUN 7 mg/dl (9-23); CHLORIDE 99 mmol/L (98-107); POTASSIUM 3.8 mmol/L (3.4-5.1)
[2023-12-08 08:00] VITALS: BP 92/51
[2023-12-08 09:46] VITALS: BP 111/53
[2023-12-08] MEDS ORDERED: VANCOMYCIN/WATER FOR INJ (PEG) 300 ML IV SCH (20:00)
== END 2023-12-08 13:00 | disposition home health service (06) | DRG 603 ==
LOC: ED 14:02 → EDHOLD 16:38 → 4E 16:38
PROVIDERS: Internal Medicine; ADMIT Internal Medicine; ATTEND Internal Medicine
PROC: 5A0935A Assistance with Respiratory Ventilation, Less than 24 Consecutive Hours, High Flow/Velocity Cannula (ICD-10-PCS; principal; 2023-12-05)
DX: L03.115 Cellulitis of right lower limb (principal); E87.20 Acidosis, unspecified; L97.919 Non-pressure chronic ulcer of unspecified part of right lower leg with unspecified severity; L97.929 Non-pressure chronic ulcer of unspecified part of left lower leg with unspecified severity; Z68.44 Body mass index [BMI] 60.0-69.9, adult; F33.1 Major depressive disorder, recurrent, moderate; L03.116 Cellulitis of left lower limb; I73.9 Peripheral vascular disease, unspecified; I87.8 Other specified disorders of veins; E03.9 Hypothyroidism, unspecified; R62.7 Adult failure to thrive; L89.312 Pressure ulcer of right buttock, stage 2; I10 Essential (primary) hypertension; I87.2 Venous insufficiency (chronic) (peripheral); E66.01 Morbid (severe) obesity due to excess calories; R09.02 Hypoxemia; K21.00 Gastro-esophageal reflux disease with esophagitis, without bleeding; F41.1 Generalized anxiety disorder; R32 Unspecified urinary incontinence; Z79.1 Long term (current) use of non-steroidal anti-inflammatories (NSAID); Z79.899 Other long term (current) drug therapy; Z88.8 Allergy status to other drugs, medicaments and biological substances

== ENCOUNTER → 2023-12-04 | Outpatient (CLI) | payer OTHER | END | disposition home or self-care (01) | LOC: WOUNDCARE 04:37 | PROVIDERS: ATTEND Nurse Practitioner Family | DX: T81.30XD Disruption of wound, unspecified, subsequent encounter (principal); L03.115 Cellulitis of right lower limb; L03.116 Cellulitis of left lower limb; L89.312 Pressure ulcer of right buttock, stage 2; E11.622 Type 2 diabetes mellitus with other skin ulcer; L97.822 Non-pressure chronic ulcer of other part of left lower leg with fat layer exposed; L97.812 Non-pressure chronic ulcer of other part of right lower leg with fat layer exposed; I87.2 Venous insufficiency (chronic) (peripheral); I10 Essential (primary) hypertension; R60.1 Generalized edema; E66.01 Morbid (severe) obesity due to excess calories; F31.9 Bipolar disorder, unspecified; F41.9 Anxiety disorder, unspecified; Z68.42 Body mass index [BMI] 45.0-49.9, adult; Z79.899 Other long term (current) drug therapy; Y83.8 Other surgical procedures as the cause of abnormal reaction of the patient, or of later complication, without mention of misadventure at the time of the procedure ==

== ENCOUNTER → 2023-12-14 | Outpatient (CLI) | payer OTHER | END | disposition home or self-care (01) | LOC: WOUNDCARE 00:13 | PROVIDERS: ATTEND Nurse Practitioner Family | DX: T81.30XD Disruption of wound, unspecified, subsequent encounter (principal); L03.115 Cellulitis of right lower limb; E11.622 Type 2 diabetes mellitus with other skin ulcer; L97.822 Non-pressure chronic ulcer of other part of left lower leg with fat layer exposed; L97.812 Non-pressure chronic ulcer of other part of right lower leg with fat layer exposed; I87.2 Venous insufficiency (chronic) (peripheral); I10 Essential (primary) hypertension; R60.1 Generalized edema; E66.01 Morbid (severe) obesity due to excess calories; F31.9 Bipolar disorder, unspecified; F41.9 Anxiety disorder, unspecified; Z68.42 Body mass index [BMI] 45.0-49.9, adult; Z79.899 Other long term (current) drug therapy; Y83.8 Other surgical procedures as the cause of abnormal reaction of the patient, or of later complication, without mention of misadventure at the time of the procedure ==

== ENCOUNTER → 2023-12-28 | Outpatient (CLI) | payer OTHER | END | disposition home or self-care (01) | LOC: WOUNDCARE 03:20 | PROVIDERS: ATTEND Nurse Practitioner Family | DX: T81.30XD Disruption of wound, unspecified, subsequent encounter (principal); L03.115 Cellulitis of right lower limb; E11.622 Type 2 diabetes mellitus with other skin ulcer; L97.822 Non-pressure chronic ulcer of other part of left lower leg with fat layer exposed; L97.812 Non-pressure chronic ulcer of other part of right lower leg with fat layer exposed; I87.2 Venous insufficiency (chronic) (peripheral); I10 Essential (primary) hypertension; R60.1 Generalized edema; E66.01 Morbid (severe) obesity due to excess calories; F31.9 Bipolar disorder, unspecified; F41.9 Anxiety disorder, unspecified; Z68.42 Body mass index [BMI] 45.0-49.9, adult; Z79.899 Other long term (current) drug therapy; Y83.8 Other surgical procedures as the cause of abnormal reaction of the patient, or of later complication, without mention of misadventure at the time of the procedure ==

== ENCOUNTER → 2024-02-15 | Outpatient (CLI) | payer OTHER | END | disposition home or self-care (01) | LOC: WOUNDCARE 00:48 | PROVIDERS: ATTEND Nurse Practitioner Family | DX: T81.31XD Disruption of external operation (surgical) wound, not elsewhere classified, subsequent encounter (principal); E11.622 Type 2 diabetes mellitus with other skin ulcer; L97.822 Non-pressure chronic ulcer of other part of left lower leg with fat layer exposed; L97.812 Non-pressure chronic ulcer of other part of right lower leg with fat layer exposed; I87.2 Venous insufficiency (chronic) (peripheral); L03.116 Cellulitis of left lower limb; I89.0 Lymphedema, not elsewhere classified; R60.1 Generalized edema; E66.01 Morbid (severe) obesity due to excess calories; I10 Essential (primary) hypertension; F41.9 Anxiety disorder, unspecified; F31.9 Bipolar disorder, unspecified; Z68.42 Body mass index [BMI] 45.0-49.9, adult; Y83.8 Other surgical procedures as the cause of abnormal reaction of the patient, or of later complication, without mention of misadventure at the time of the procedure ==

== ENCOUNTER → 2024-08-19 | Outpatient (CLI) | payer OTHER ==
[~2024-08-19] MED LIST changes: +PRISTIQ ER25 MG PO; +TRAZODONE50 MG PO
== END | disposition home or self-care (01) ==
LOC: CT 08-18 03:42
PROVIDERS: ATTEND Internal Medicine
DX: R91.1 Solitary pulmonary nodule (principal); E11.40 Type 2 diabetes mellitus with diabetic neuropathy, unspecified; F31.9 Bipolar disorder, unspecified; I25.10 Atherosclerotic heart disease of native coronary artery without angina pectoris

== ENCOUNTER → 2025-04-13 | Outpatient (CLI) | payer MEDICARE | END | disposition home or self-care (01) | LOC: MAMMO 00:33 | PROVIDERS: ATTEND Internal Medicine | DX: Z12.31 Encounter for screening mammogram for malignant neoplasm of breast (principal) ==